=== PATIENT | male | born 1955 | race Caucasian/White ===

== ENCOUNTER 2020-04-06 08:28 | Inpatient (IN) | payer MEDICARE, OTHER, SELFPAY ==
[2020-04-06] VITALS (7 sets, daily range): BP systolic 125–176; BP diastolic 66–92; PULSE 78–102; RESP 16–22; TEMP 36.4–37.1; O2SAT 96–99; BMI 19.7
--- NOTE | ~2020-04-06 | CT_ITS ---
EXAMINATION: CTA chest PE protocol DATE: 04/06/2020 09:38 INDICATION: Shortness of breath for 4 days TECHNIQUE: Computed tomography angiography (CTA) of the chest was performed with 100 mL Omnipaque-350 intravenous contrast timed to evaluate the pulmonary arteries. Coronal maximum intensity projection 3D-reconstructions were created by the technologist. Automated exposure control and iterative reconst ruction technique were employed. Exam dose: 182.94 mGy-cm total exam DLP. COMPARISON: 04/06/2020 2 view chest. FINDINGS: There is suboptimal contrast enhancement of the pulmonary arteries due to the late imaging after the bolus injection. No obvious central pulmonary embolism is identified. Repeat imaging with a nother bolus of contrast material is recommended. IMPRESSION: Limited examination due to suboptimal contrast enhancement pulmonary; rescanning is anahi mmended. Reviewed, dictated and finalized at [facility]. Reviewed, dictated and finalized at [facility]. IMPRESSION: Limited examination due to suboptimal contrast enhancement pulmona ry; rescanning is recommended.
--- NOTE | ~2020-04-06 | CT_ITS ---
EXAMINATION: CTA chest PE protocol DATE: 04/06/2020 10:34 INDICATION: Shortness of breath TECHNIQUE: Computed tomography angiography (CTA) of the chest was performed with repeat 100 mL Omnipa que-350 intravenous contrast timed to evaluate the pulmonary arteries. Coronal maximum intensity proj ection 3D-reconstructions were created by the technologist. Automated exposure control and iterative reconstruction technique were employed. Exam dose: 194.19 mGy-cm total exam DLP. COMPARISON: 04/06/2020 PA and lateral chest FINDINGS: There is suboptimal contrast enhancement of the pulmonary arteries. No central pulmonary em bolism is identified. No thoracic aortic aneurysm or dissection. Normal heart size. Coronary artery calcification. No pericardial or pleural effusion. No hilar or mediastinal mass lesion or lymphadenopathy. Bilateral apical scarring. There are prominent emphysematous changes of the lungs. There are calcified pulmonary granulomas. No pulmonary infiltrate or consolidation or pulmonary mass lesion is evident. No suspicious osteolytic or osteoblastic lesions are noted. 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 Reviewed, dictated and finalized at [facility]. IMPRESSION: Suboptimal contrast enhancement of the pulmonary; no central pulmo nary embolism is evident Emphysema Old pulmonary granulomatous disease
--- NOTE | ~2020-04-06 | XR_ITS ---
XR chest 2V DATE: 04/06/2020 09:39 INDICATION: Shortness of breath TECHNIQUE: AP and lateral views COMPARISON: 06/06/2019 PA and lateral chest FINDINGS: There is severe bilateral hyperinflation consistent with COPD. No pulmonary infiltrate or c onsolidation, pleural effusion or pulmonary vascular congestion or pneumothorax is detected. Normal heart size. No hilar or mediastinal enlargement. IMPRESSION: Severe COPD Reviewed, dictated and finalized at [facility]. IMPRESSION: Severe COPD
--- NOTE | 2020-04-06 08:29 | ECG_ITS ---
Measurements Intervals [place] Rate: 89 P: 81 [place]: 151 QRS: 65 QRSD: 90 T: 65 QT: 352 QTc: 429 Interpretive Statements SINUS RHYTHM POSSIBLE RIGHT ATRIAL ENLARGEMENT POSSIBLE LEFT ATRIAL ENLARGEMENT POSSIBLE LEFT VENTRICULAR HYPERTROPHY BORDERLINE ST ABNORMALITY- INFERIOR LEADS BASELINE ARTIFACT- I, II, III, AVR, AVL, AVF, V1-V2 BORDERLINE ECG Electronically Signed On 04-06-2020 15:00:03 CDT by Brock Seymour D.O.
[2020-04-06] MEDS: methylPREDNISolone SOD SUCC 125 MG VIAL IV PUSH (08:38)
[2020-04-06] MEDS: ASPIRIN 81 MG CHEWABLE TABLET 324 MG PO (08:40)
[2020-04-06 08:49] LABS: Basophils Absolute Auto 0.08 K/mm3 (0.00-0.10); Basophils Percent Auto 0.8 % (0.0-1.0); Eosinophils Absolute Auto 0.67 K/mm3 (0.02-0.50); Eosinophils Percent Auto 6.3 % (1.0-6.0); Hematocrit 44.8 % (37.0-46.0); Immature Granulocyte Absolute 0.03 K/mm3 (0.00-0.00); Immature Granulocyte Percent A 0.3 % (0.0-0.0); Lymphocytes Absolute Auto 2.49 K/mm3 (1.10-4.50); Lymphocytes Percent Auto 23.6 % (18.0-42.0); Mean Corpuscular HGB Conc 33.5 g/dL (32.0-36.0); Mean Corpuscular Hemoglobin 30.5 pg (27.0-31.0); Mean Corpuscular Volume 91.2 fL (78.0-102.0); Mean Platelet Volume 9.1 fl (8.7-11.0); Monocytes Absolute Auto 0.63 K/mm3 (0.10-0.90); Neutrophils Absolute Auto 6.7 K/mm3 (1.7-7.2); Platelet Count Result 303 K/mm3 (150-420); Red Blood Count 4.91 M/mm3 (4.70-6.10); Red Cell Distribution Width 12.5 % (11.6-14.4); White Blood Count 10.6 K/mm3 (4.8-10.8)
[2020-04-06 09:04] LABS: Partial Thromboplastin Time 38.1 SEC (22.3-31.6); Prothrombin Time 10.7 Seconds (9.64-11.0)
[2020-04-06] MEDS: IPRATROPIUM 0.5 MG/ALBUTEROL SULFATE 2.5 MG AMPUL.NEB 3 ML INHALATION (09:04)
[2020-04-06 09:08] LABS: Alanine Aminotransferase 21 U/L (16-63); Albumin Level 4.1 g/dL (3.4-5.0); Alkaline Phosphatase 70 U/L (46-116); Anion Gap 11 mmol/L (8-16); Aspartate Amino Transferase 20 U/L (15-37); Bilirubin,Total 0.8 mg/dL (0.00-1.00); Blood Urea Nitrogen 11 mg/dL (7-18); Calcium 8.6 mg/dL (8.5-10.1); Carbon Dioxide 24 mmol/L (21-32); Chloride 101 mmol/L (98-108); Estimated CRCL calculation 45 ml/min; Estimated Glomerular Filt Rate 56; Glucose 109 mg/dL (70-99); Osmolality Calculated 282 mOsm/kg (285-295); Sodium 136 mmol/L (136-145)
[2020-04-06 09:11] LABS: BNP 50.6 pg/mL (0-100)
[2020-04-06 09:12] LABS: D Dimer 0.45 mg/L (0.19-0.50)
[2020-04-06 09:12] LABS: Influenza Control Valid (Valid)
--- NOTE | 2020-04-06 09:16 | PC.NURSE ---
pt to xray per wheelchair.
[2020-04-06 09:24] LABS: Troponin I < 0.02 ng/mL (0.00-0.056)
--- NOTE | 2020-04-06 09:50 | ED.SOB ---
HPI - SOB/Dyspnea General Chief Complaint: Shortness of Breath/Dyspnea Stated Complaint: 64YO male w/ known h.o copd, seasonal allergies currently on albuterol admits to feeling SOB over last 1 week. He has been using albuterol inh but ran out yesterday. Here for eval by EMS who arrived and found patient w/ O2 Sats at 94-95% on RA, better with O2 2L. Time Seen by Provider: 04/06/20 08:29 Related Data Home Medications Medication Instructions Recorded Confirmed albuterol sulfate 2 puff INHALATION Q4-6H PRN 06/06/19 04/06/20 ergocalciferol (vitamin D2) 50,000 unit PO WEEKLY 06/06/19 04/06/20 [Vitamin D2] folic acid 1 mg PO DAILY 06/06/19 04/06/20 loratadine 10 mg PO DAILY 06/06/19 04/06/20 Allergies Allergy/AdvReac Type Severity Reaction Status Date / Time No Known Allergies Allergy Verified 04/25/14 17:32 Review of Systems Review of Systems: All systems reviewed & are unremarkable except as noted in HPI and below Constitutional: Constitutional: Reports as per HPI, Reports no additional constitutional complaints, Denies chills and Denies fever(s) Eyes: Eyes: Reports as per HPI ENT: Reports system reviewed and no additional complaints, except as documented Cardiovascular: Cardiovascular: Reports as per HPI, Reports no additional cardiovascular complaints and Denies chest pain Respiratory: Respiratory: Reports as per HPI, Reports no additional respiratory complaints, Denies chest congestion, Reports cough, Reports dyspnea and Denies wheezing Gastrointestinal: Gastrointestinal: Reports as per HPI and Reports no additional gastrointestinal complaints Genitourinary: Genitourinary: Reports no additional male genitourinary complaints and Reports as per HPI Musculoskeletal: Musculoskeletal: Reports no additional musculoskeletal complaints Integumentary/Breasts: Skin/Breast: Reports system reviewed and no additional complaints, except as docu and Reports as per HPI Neurologic: Reports system reviewed and no additional complaints, except as documented and Reports as per HPI Psychiatric: Psychiatric: Reports no additional psychiatric complaints and Reports as per HPI Endocrine: Endocrine: Reports no additional endocrine complaints and Reports as per HPI Hematologic/Lymphatic: Hematologic/Lymphatic: Reports no additional hematologic/lymphatic complaints and Reports as per HPI Allergic/Immunologic: Allergic/Immunologic: Reports no additional allergic/immunologic complaints and Reports as per HPI [facility] Past Medical History Medical History COPD (chronic obstructive pulmonary disease) Depression HTN (hypertension) Light-headedness Vertigo Family History Family History Mother CAD (coronary artery disease) Father Blood clot in vein Social History Social History Smoking packs per day: 0.5 Smoking cigarettes per day: 10.0 Years smoked: 45 Smoking pack-years: 22.50 Smoking status: Current every day smoker Tobacco type: cigarettes Second hand tobacco smoke exposure: Yes Alcohol intake: former Substance use: never Gender identity (if verbalized by the patient): Male Spiritual care concerns: No Agree to blood products: Yes Exam Const: General: healthy appearing, no acute distress and alert Orientation/consciousness: patient oriented x3 HENMT: Head: normal to inspection Face and sinus: normal facial exam and sinuses nontender Eyes: Conjunctivae: conjunctivae normal Pupils: Equal, round and reactive pupils present Neck: Neck: normal visual inspection Chest: Chest palpation & inspection: normal inspection of the chest Resp: Effort & Inspection: normal respiratory effort and not labored Auscultation: clear to auscultation bilaterally Cardio: Rate: regular rate Rhythm: regular rhythm GI: Inspection: distended GI
--- NOTE | 2020-04-06 10:25 | PC.NURSE ---
1000 family member in with patient, N95 mask provided to family member as pt is PUI Covid. pt to go to floor for observation, does not feel safe going home at this time. Report to les rubio. xray staff bill states radiologist requested ct scan to be repeated. pt to xray per wheelchair.
--- NOTE | 2020-04-06 10:35 | PC.NURSE ---
REPORT TO TIFFANIE SANTIAGO
--- NOTE | 2020-04-06 11:49 | PM.IMHP ---
H&P: HPI History of Present Illness Date/Time: 04/06/20 11:49 Chief complaint: Ambulance Narrative: Karan Sexton is a 64 year old male with a chief complaint of SOB. Pt has had worsening breathing for about 1 week. He was using his MDI Albuterol but ran out yesterday. Pt is a smoker with a Hx of COPD. Pt denies CP at this time nor did he have this prior to arrival at the hospital. Since being in the ER Pt states that his breathing is better. He does not use home O2. Review of Systems Constitutional: Constitutional: Denies fatigue and Denies fever(s) Cardiovascular: Cardiovascular: Denies chest pain, Denies chest pain at rest and Denies chest pain with activity Respiratory: Respiratory: Reports dyspnea (but this has improved since being in the hospital ) Gastrointestinal: Gastrointestinal: Reports no additional gastrointestinal complaints Genitourinary: Genitourinary: Reports no additional male genitourinary complaints Musculoskeletal: Musculoskeletal: Reports no additional musculoskeletal complaints Neurologic: Denies dizziness and Denies loss of vision PMFSH Past Medical History Medical History COPD (chronic obstructive pulmonary disease) Depression HTN (hypertension) Light-headedness Vertigo Family History Family History Mother CAD (coronary artery disease) Father Blood clot in vein Social History Social History Smoking packs per day: 1 Smoking cigarettes per day: 20.0 Years smoked: 45 Smoking pack-years: 45.00 Smoking status: Former smoker Tobacco type: cigarettes Second hand tobacco smoke exposure: Yes Smoking end date: 03/30/20 Alcohol intake: former Drinks per week: 18 Substance use: never Substance use type: does not use Gender identity (if verbalized by the patient): Male Sexual Orientation (if Verbalized by the Patient): Straight or Heterosexual Spiritual care concerns: No Agree to blood products: Yes Meds Home Medications and Allergies Home Medications Medication Instructions Recorded Confirmed Type albuterol sulfate 2 puff INHALATION Q4-6H PRN 06/06/19 04/06/20 History ergocalciferol (vitamin D2) 50,000 unit PO WEEKLY 06/06/19 04/06/20 History [Vitamin D2] folic acid 1 mg PO DAILY 06/06/19 04/06/20 History loratadine 10 mg PO DAILY 06/06/19 04/06/20 History metoprolol succinate 12.5 mg PO DAILY 30 Days #15 tablet 06/07/19 04/06/20 Rx Allergies Allergy/AdvReac Type Severity Reaction Status Date / Time No Known Allergies Allergy Verified 04/25/14 17:32 Vital Signs Vital Signs - 24 hr 04/06/20 08:28 04/06/20 08:40 04/06/20 09:09 Temperature 98.2 F Pulse Rate 102 H 102 H 88 Respiratory Rate 22 H 22 H 20 Blood Pressure 176/92 H Pulse Oximetry 97 04/06/20 10:20 04/06/20 11:33 Temperature 98.7 F 98.4 F Pulse Rate 91 90 Respiratory Rate 20 16 Blood Pressure 143/77 H 159/76 H Pulse Oximetry 98 98 Exam Const: General: cooperative, healthy appearing, comfortable, no acute distress, alert and awake Nutritional Appearance: thin Orientation/consciousness: oriented to person, oriented to place and oriented to time (and events) HENMT: Head: normal to inspection Ears: hearing grossly normal bilaterally Face and sinus: normal facial exam Neck: Neck: normal visual inspection, full ROM and no JVD Carotids: no bruits Resp: Effort & Inspection: normal respiratory effort Auscultation: diminished lung sounds Cardio: Rate: regular rate Rhythm: regular rhythm Heart sounds: S1 normal heart sound present and S2 normal heart sound present GI: GI Palp: No abdominal tenderness and Yes Soft to palpation Auscultation: normal bowel sounds Neuro: General: oriented to person, oriented to place and oriented to time (and events) Cranial nerves: Yes CN's II-XII intact bilat
[2020-04-06] MEDS: ALBUTEROL SULFATE (*SP) INHALER 2 PUFF INHALATION ×2 (13:01→17:56)
[2020-04-06] MEDS: methylPREDNISolone SOD SUCC 125 MG VIAL 80 MG IV PUSH ×2 (13:02→21:37)
[2020-04-07] VITALS: BP 132/72; PULSE 87; RESP 18; TEMP 35.9; O2SAT 97
[2020-04-07] MEDS: ALBUTEROL SULFATE (*SP) INHALER 2 PUFF INHALATION ×4 (01:08→17:56)
[2020-04-07 04:00] VITALS: BP 146/78; PULSE 88; RESP 18; TEMP 36.6; O2SAT 95
[2020-04-07 05:41] LABS: Basophils Absolute Auto 0.01 K/mm3 (0.00-0.10); Basophils Percent Auto 0.1 % (0.0-1.0); Hemoglobin 13.3 g/dL (12.4-15.3); Immature Granulocyte Percent A 0.7 % (0.0-0.0); Lymphocytes Absolute Auto 1.18 K/mm3 (1.10-4.50); Lymphocytes Percent Auto 8.3 % (18.0-42.0); Mean Corpuscular HGB Conc 33.3 g/dL (32.0-36.0); Mean Corpuscular Hemoglobin 30.4 pg (27.0-31.0); Mean Corpuscular Volume 91.3 fL (78.0-102.0); Mean Platelet Volume 8.9 fl (8.7-11.0); Monocytes Absolute Auto 0.27 K/mm3 (0.10-0.90); Monocytes Percent Auto 1.9 % (2.0-11.0); Neutrophils Absolute Auto 12.7 K/mm3 (1.7-7.2); Platelet Count Result 261 K/mm3 (150-420); Red Blood Count 4.38 M/mm3 (4.70-6.10); Red Cell Distribution Width 12.7 % (11.6-14.4); White Blood Count 14.2 K/mm3 (4.8-10.8)
[2020-04-07] MEDS: methylPREDNISolone SOD SUCC 125 MG VIAL 80 MG IV PUSH ×3 (05:43→21:32)
[2020-04-07 06:01] LABS: Alanine Aminotransferase 24 U/L (16-63); Albumin Level 3.4 g/dL (3.4-5.0); Alkaline Phosphatase 57 U/L (46-116); Anion Gap 12 mmol/L (8-16); Aspartate Amino Transferase 14 U/L (15-37); Bilirubin,Total 0.3 mg/dL (0.00-1.00); Blood Urea Nitrogen 22 mg/dL (7-18); Calcium 8.3 mg/dL (8.5-10.1); Carbon Dioxide 23 mmol/L (21-32); Chloride 105 mmol/L (98-108); Estimated CRCL calculation 44 ml/min; Estimated Glomerular Filt Rate 55; Glucose 146 mg/dL (70-99); Osmolality Calculated 296 mOsm/kg (285-295); Potassium 4.6 mmol/L (3.5-5.1); Sodium 140 mmol/L (136-145); Total Protein 6.7 g/dL (6.4-8.2)
--- NOTE | 2020-04-07 07:35 | PC.NURSE ---
Patient resting in bed on left side. Patient reports no needs at this time. Call light and belongings at side.
[2020-04-07] MEDS: NICOTINE (*PBKC) 21 MG PATCH 1 PATCH TRANSDERM (08:19)
[2020-04-07] MEDS: ENOXAPARIN 40 MG/0.4 ML SYRINGE SUB-Q (08:19)
[2020-04-07] MEDS: PANTOPRAZOLE SODIUM IV 40 MG VIAL IV PUSH (08:19)
[2020-04-07 08:30] VITALS: BP 137/66; PULSE 90; RESP 20; TEMP 36.9; O2SAT 94
--- NOTE | 2020-04-07 10:15 | PC.NURSE ---
Patient sitting up in bed resting, speaking on phone. No needs voiced.
[2020-04-07 11:50] LABS: SARS-CoV-2 RNA PCR Negative
[2020-04-07] MEDS: AZITHROMYCIN 250 MG TABLET 500 MG PO (12:07)
[2020-04-07] MEDS: BUDESONIDE/FORMOTEROL (*SP) 160-4.5 MCG 6 GM INH 2 PUFF INHALATION (12:10)
[2020-04-07 12:30] VITALS: BP 121/74; PULSE 92; RESP 20; TEMP 36.7; O2SAT 94
--- NOTE | 2020-04-07 12:48 | WPDPN ---
Progress Note: A&P Assessment and Plan (1) Person under investigation for COVID-19: Code(s): Z20.828 - Contact with and (suspected) exposure to other viral communicable diseases Status: Acute Assessment and Plan: Cultures negative (2) Acute exacerbation of chronic obstructive airways disease: Code(s): J44.1 - Chronic obstructive pulmonary disease with (acute) exacerbation Status: Acute Assessment and Plan: ? Continue to monitor pulse oximetry, patient currently on room air sat's iin the upper 90s ? CXR indicate Bilateral apical scarring. There are prominent emphysematous changes of the lungs. ? Continue inhaler/ nebs albuterol 2 puffs every 6 hours and emphysema daily ? Continue steroids, patient currently on 80 mg every 8 hours Solu-Medrol ? Started ABX azithromycin ? (3) Hyponatremia: Code(s): E87.1 - Hypo-osmolality and hyponatremia Status: Acute Assessment and Plan: Resolved Sodium 131 on admission currently 140 (4) DVT prophylaxis: Code(s): Z29.9 - Encounter for prophylactic measures, unspecified Status: Acute Assessment and Plan: Continue Lovenox (5) Elevated WBCs: Code(s): D72.829 - Elevated white blood cell count, unspecified Status: Acute Assessment and Plan: Possibly secondary to steroid use Chest x-ray does not indicate pneumonia Review of Systems Review of Systems: All systems reviewed & are unremarkable except as noted in HPI and below (10 point system review) Exam Narrative: Exam Narrative: GENERAL: This is a well-nourished, well-developed patient, in no apparent distress. HEAD: normocephalic, atraumatic. EYES: PERRL. Sclera clear/white. Vision is grossly intact. EARS: External ears normal, auditory canals clear and without drainage, TMs normal without perforation. Hearing grossly intact. NOSE: External nose normal with no obvious nasal discharge, nares without redness, no rhinorrhea. THROAT: Mucous membranes moist, posterior pharynx clear. NECK: Neck supple, non-tender without lymphadenopathy, masses or thyromegaly. CARDIOVASCULAR: Regular rate and rhythm without murmurs, gallops, or rubs. RESPIRATORY: Breath sounds bilateral with slight wheezing, GASTROINTESTINAL: Abdomen soft, non-tender, nondistended. Bowel sounds are active. No hepato-splenomegaly, or palpable masses. No guarding. SKIN: warm, intact with no suspicious lesions or rash, good texture and turgor. NEURO: awake, alert, and oriented to person, place and time. There were no obvious focal neurologic abnormalities. Steady gait EXTREMITIES: Normal range of motion. No edema. No calf tenderness. Negative Homans sign bilaterally. BACK: Nontender without deformity or crepitance. No flank tenderness. Objective Data Vital Signs Vital Signs: Vital Signs - 24 hr 04/06/20 16:00 04/06/20 20:00 04/07/20 00:00 Temperature 98.2 F 97.6 F 96.7 F L Pulse Rate 88 78 87 Respiratory Rate 20 18 18 Blood Pressure 125/72 140/66 132/72 Pulse Oximetry 99 96 97 04/07/20 04:00 04/07/20 08:30 Temperature 97.8 F 98.5 F Pulse Rate 88 90 Respiratory Rate 18 20 Blood Pressure 146/78 H 137/66 Pulse Oximetry 95 94 Intake/Output Intake/Output: Intake & Output 04/04/20 04/05/20 04/06/20 04/07/20 23:59 23:59 23:59 23:59 Intake Total 500 360 Balance 500 360 Meds/Results Medications: Active Medications Generic Name Dose Route Start Last Admin Trade Name Freq PRN Reason Stop Dose Admin Acetaminophen 650 mg 04/06/20 11:01 Tylenol Tablet PO Q4H PRN Mild Pain (1-3) or Fever Albuterol 2 puff 04/06/20 12:20 04/07/20 05:43 Proventil Hfa INHALATION 2 puff Q6H SANTANA Administration Azithromycin 500 mg 04/07/20 09:00 04/07/20 12:07 Zithromax Tablet PO 500 mg DAILY SANTANA Administration Enoxaparin Sodium 40 mg 04/07/20 09:00 04/07/20 08:19 Lovenox SUB-Q 40 mg DAILY SANTANA Administration Guaifenesin/Dextrom
[2020-04-07 16:50] VITALS: BP 151/71; PULSE 85; RESP 18; TEMP 36.9; O2SAT 96
--- NOTE | 2020-04-07 18:27 | PC.NURSE ---
Patient sitting up in bed resting watching tv. Provided with fresh ice water. Denies any further needs. States he is feeling much better this afternoon.
[2020-04-07 19:42] VITALS: BP 139/71; PULSE 82; RESP 14; TEMP 36.4; O2SAT 97
[2020-04-08] VITALS: BP 141/72; PULSE 80; RESP 14; TEMP 36.4; O2SAT 97
[2020-04-08] MEDS: ALBUTEROL SULFATE (*SP) INHALER 2 PUFF INHALATION ×2 (00:12→05:31)
[2020-04-08 04:00] VITALS: BP 131/69; PULSE 80; RESP 14; TEMP 36.6; O2SAT 97
[2020-04-08] MEDS: methylPREDNISolone SOD SUCC 125 MG VIAL 80 MG IV PUSH (05:30)
[2020-04-08 07:15] VITALS: BP 147/71; PULSE 86; RESP 18; TEMP 37.1; O2SAT 96
--- NOTE | 2020-04-08 08:43 | PM.DS ---
DS: Admitting Diagnosis Admitting Diagnosis Admitting Diagnosis: copd <Jeanmarieravindra JagdeepJENNIFER Willett - Last Filed: 04/08/20 11:16> DS: Discharge Diagnosis Discharge Diagnosis (1) Person under investigation for COVID-19: Code(s): Z20.828 - Contact with and (suspected) exposure to other viral communicable diseases <Conrado JagdeepJENNIFER Willett - Last Filed: 04/08/20 11:16> Status: Acute <Conrado GannonJENNIFER Willett - Last Filed: 04/08/20 11:16> Assessment and Plan: Cultures negative <Jeanmarieravindra JagdeepJENNIFER Willett - Last Filed: 04/08/20 11:16> (2) Acute exacerbation of chronic obstructive airways disease: Code(s): J44.1 - Chronic obstructive pulmonary disease with (acute) exacerbation <Jeanmarieravindra JagdeepJENNIFER Willett - Last Filed: 04/08/20 11:16> Status: Acute <Jeanmarieravindra JagdeepJENNIFER Willett - Last Filed: 04/08/20 11:16> Assessment and Plan: ? Continue to monitor pulse oximetry, patient currently on room air sat's iin the upper 90s ? CXR indicate Bilateral apical scarring. There are prominent emphysematous changes of the lungs. ? Continue inhaler/ nebs albuterol 2 puffs every 6 hours and Spiriva ? Continue steroids, patient currently on Solu-Medrol 60 mg daily to titrate ? Continue ABX azithromycin for 7 days ? <JENNIFER Palacios - Last Filed: 04/08/20 11:16> (3) Hyponatremia: Code(s): E87.1 - Hypo-osmolality and hyponatremia <Conrado JagdeepJENNIFER Willett - Last Filed: 04/08/20 11:16> Status: Acute <JENNIFER Palacios - Last Filed: 04/08/20 11:16> Assessment and Plan: Resolved Sodium 131 on admission currently wnl <JENNIFER Palacios - Last Filed: 04/08/20 11:16> (4) DVT prophylaxis: Code(s): Z29.9 - Encounter for prophylactic measures, unspecified <JENNIFER Palacios - Last Filed: 04/08/20 11:16> Status: Acute <JENNIFER Palacios Last Filed: 04/08/20 11:16> Assessment and Plan: Patient discharged with DC Lovenox <JENNIFER Palacios - Last Filed: 04/08/20 11:16> (5) Elevated WBCs: Code(s): D72.829 - Elevated white blood cell count, unspecified <JENNIFER Palacios Last Filed: 04/08/20 11:16> Status: Acute <JENNIFER Palacios Last Filed: 04/08/20 11:16> Assessment and Plan: secondary to steroid use Chest x-ray does not indicate pneumonia <JENNIFER Palacios Last Filed: 04/08/20 11:16> DS: Summary Time Spent with Patient Time attestation: Total time spent providing and/or coordinating discharge services:60 <JENNIFER Palacios Last Filed: 04/08/20 11:16> Exam Narrative: Exam Narrative: General: A well-developed, well-nourished male sitting up in bed no acute distress. HEENT: Normocephalic, atraumatic. PERRL, EOMI. Sclerae anicteric. Oral mucosa moist. Oropharynx clear. Neck: Supple. Respiratory: Lungs are clear to auscultation bilaterally. Cardiovascular: Regular rate and rhythm with S1-S2. Gastrointestinal: Abdomen is soft, nontender, and nondistended with positive bowel sounds. No organomegaly. Skin: Warm, dry, and slightly pale.. No rash or lesions on limited exam. Extremities: No cyanosis, clubbing, or edema. Radial and pedal pulses intact. Neurological: Alert. Cranial nerves 2-12 are grossly intact. No gross focal deficits to casual conversation. Psychiatric: Pleasant and cooperative with normal mood and affect. CONSTITUTIONAL: Denies fever, chills, sweats. EYES: Denies visual changes, redness, discharge. ENT: Denies rhinorrhea, congestion, sore throat, otalgia. CARDIOVASCULAR: Denies chest pain, palpitations, edema. RESPIRATORY: Denies dyspnea, wheezing, cough GASTROINTESTINAL: Denies abdominal pain, nausea, vomiting, diarrhea. GENITOURINARY: Denies dysuria, hematuria, abnormal discharge SKIN: Denies rash or itching. MUSCULOSKELETAL: Denies acute back pain, joint pain, or myalgia
[2020-04-08 09:17] LABS: Hematocrit 38.9 % (37.0-46.0); Mean Corpuscular HGB Conc 33.4 g/dL (32.0-36.0); Mean Corpuscular Hemoglobin 30.7 pg (27.0-31.0); Mean Platelet Volume 9.4 fl (8.7-11.0); Platelet Count Result 269 K/mm3 (150-420); Red Blood Count 4.23 M/mm3 (4.70-6.10); White Blood Count 17.7 K/mm3 (4.8-10.8)
[2020-04-08 09:26] LABS: Anion Gap 11 mmol/L (8-16); Blood Urea Nitrogen 21 mg/dL (7-18); Calcium 8.2 mg/dL (8.5-10.1); Carbon Dioxide 23 mmol/L (21-32); Chloride 104 mmol/L (98-108); Estimated CRCL calculation 43 ml/min; Estimated Glomerular Filt Rate 54; Glucose 235 mg/dL (70-99); Osmolality Calculated 297 mOsm/kg (285-295); Potassium 4.1 mmol/L (3.5-5.1); Sodium 138 mmol/L (136-145)
[2020-04-08 09:31] VITALS: PULSE 86
[2020-04-08] MEDS: METOPROLOL SUCCINATE EXT REL 25 MG TABCR 12.5 MG PO (09:31)
[2020-04-08] MEDS: FOLIC ACID 1 MG TABLET PO (09:32)
[2020-04-08] MEDS: methylPREDNISolone SOD SUCC 125 MG VIAL 60 MG IV PUSH (09:32)
[2020-04-08] MEDS: LORATADINE 10 MG TABLET PO (09:32)
[2020-04-08] MEDS: AZITHROMYCIN 250 MG TABLET 500 MG PO (09:33)
[2020-04-08] MEDS: PANTOPRAZOLE SODIUM IV 40 MG VIAL IV PUSH (09:33)
[2020-04-08] MEDS: NICOTINE (*PBKC) 21 MG PATCH 1 PATCH TRANSDERM (09:33)
[2020-04-08] MEDS: ERGOCALCIFEROL 50,000 UNIT CAPSULE 50000 UNITS PO (09:37)
[2020-04-08] MEDS: guaiFENesin/DEXTROMETHORPHAN 5 ML UDC 10 ML PO (10:27)
--- NOTE | 2020-04-08 10:30 | PC.NURSE ---
All discharge instructions and education reviewed with patient. All questions answered by nurse. All belongings gathered together to be sent home with patient. IV site remove, tip intact. Dressing applied to site, pt tolerated well. Patient denies any further questions. Waiting for sister to come pick him up. Sitting at side of bed.
== END 2020-04-08 11:00 | disposition home or self-care (01) | DRG 192 ==
LOC: CHSED 10:17 → CHS2ND 10:42
PROVIDERS: Nurse Practitioner; Admitting Provider Family Medicine; Emergency Provider Family Medicine; PCP Family Medicine; Visit Provider Family Medicine
DX: J44.1 Chronic obstructive pulmonary disease with (acute) exacerbation (principal); I10 Essential (primary) hypertension; F17.210 Nicotine dependence, cigarettes, uncomplicated; F32.9 Major depressive disorder, single episode, unspecified; Z20.828 Contact with and (suspected) exposure to other viral communicable diseases
CPT/HCPCS: 36415; 71046; 71275; 80048; 80053; 83880; 84484; 85025; 85027; 85380; 85610; 85730; 87081; 87635; 87804; 87880; 93005; 94640; 96372; 96374; 96375; 96376; 99283; 99285; A9270; C9113; C9803; G0378; J1650; J2930; Q9965; U0003

== ENCOUNTER 2020-05-26 09:15 | Emergency (ER) | payer MEDICARE, OTHER, SELFPAY ==
[2020-05-26] VITALS (7 sets, daily range): BP systolic 145–147; BP diastolic 82–87; PULSE 84–104; RESP 16–26; TEMP 36.4–36.6; O2SAT 96–100
--- NOTE | ~2020-05-26 | XR_ITS ---
EXAMINATION: XR chest 1V portable DATE: 05/26/2020 09:50 INDICATION: COPD presenting with dyspnea TECHNIQUE: frontal view of the chest was obtained. COMPARISON: Chest radiograph and CT dated 04/06/2020 FINDINGS: Hyperexpansion of lungs consistent with known emphysema. Biapical pleural-parenchymal scarring. There are few scattered bilateral calcified pulmonary nodules along with calcified bilateral hilar and med iastinal lymph nodes consistent with old granulomatous disease. No other airspace opacities, pulmonar y edema, pleural effusion or pneumothorax. The cardiomediastinal silhouette is normal. Mild thoracic levocurvature. IMPRESSION: 1. Emphysema with biapical pleural-parenchymal scarring. Reviewed, dictated and finalized at location A. ITIES AND MAINTENANCE SUPERVISOR
--- NOTE | 2020-05-26 09:31 | ED.SOB ---
HPI - SOB/Dyspnea General Chief Complaint: Shortness of Breath/Dyspnea Stated Complaint: ambulance Source: patient and EMS Mode of arrival: EMS Limitations: no limitations History of Present Illness MD elicited complaint: shortness of breath and cough Pertinent past history: COPD Onset (ago): week(s) (1) Timing: intermittent Severity: moderate Exacerbating factors: coughing Relieving factors: oxygen ( administered by EMS) Known history of: COPD Associated symptoms: cough Treatment prior to arrival: none Related Data Home oxygen amount: none Home Medications Medication Instructions Recorded Confirmed folic acid 1 mg PO DAILY 06/06/19 05/26/20 loratadine 10 mg PO DAILY 06/06/19 05/26/20 citalopram 10 mg PO DAILY 05/26/20 05/26/20 Allergies Allergy/AdvReac Type Severity Reaction Status Date / Time No Known Allergies Allergy Verified 04/25/14 17:32 Review of Systems Constitutional: Constitutional: Denies body ache(s), Denies chills and Denies fever(s) ENT: Reports system reviewed and no additional complaints, except as documented Cardiovascular: Cardiovascular: Reports no additional cardiovascular complaints and Denies chest pain Respiratory: Respiratory: Reports as per HPI Gastrointestinal: Gastrointestinal: Reports no additional gastrointestinal complaints, Denies nausea and Denies vomiting Genitourinary: Genitourinary: Reports no additional male genitourinary complaints Musculoskeletal: Musculoskeletal: Reports no additional musculoskeletal complaints Integumentary/Breasts: Skin/Breast: Reports system reviewed and no additional complaints, except as docu Neurologic: Reports system reviewed and no additional complaints, except as documented Psychiatric: Psychiatric: Reports no additional psychiatric complaints [facility] Past Medical History Medical History (Updated 05/26/20 @ 10:56 by Bj Brush MD) COPD (chronic obstructive pulmonary disease) Depression HTN (hypertension) Light-headedness Vertigo Family History Family History Mother CAD (coronary artery disease) Father Blood clot in vein Social History Social History Smoking packs per day: 1 Smoking cigarettes per day: 20.0 Years smoked: 45 Smoking pack-years: 45.00 Smoking status: Former smoker Tobacco type: cigarettes Second hand tobacco smoke exposure: Yes Smoking end date: 03/30/20 Alcohol intake: former Drinks per week: 18 Substance use: never Substance use type: does not use Gender identity (if verbalized by the patient): Male Spiritual care concerns: No Agree to blood products: Yes Exam Const: General: cooperative, healthy appearing, no acute distress, alert and awake Nutritional Appearance: average body habitus and well nourished Orientation/consciousness: patient oriented x3 Limitations: no limitations Other: Patient seen and examined in negative pressure isolation room in full PPE HENMT: Head: normal to inspection Ears: hearing grossly normal bilaterally General nose exam: Normal external nose present and Normal nares present Face and sinus: normal facial exam Eyes: General: appearance normal, both eyes and all related structures EOM: EOMs intact bilaterally Neck: Neck: normal visual inspection, full ROM and trachea midline Chest: Chest palpation & inspection: normal inspection of the chest Resp: Effort & Inspection: normal respiratory effort Auscultation: wheezes expiratory wheezes and posterior (bases) Cardio: Rate: regular rate Rhythm: regular rhythm GI: Inspection: normal to inspection Auscultation: normal bowel sounds Back/Spine/Pelvis: Cervical Spine: cervical ROM normal Thoracic/Lumbar Spine: thoraco-lumbar ROM normal Skin: General skin exam: normal color and no rashes or lesions noted Neuro: General: patient oriented x3, moves all extremities and no focal
[2020-05-26] MEDS: IPRATROPIUM 0.5 MG/ALBUTEROL SULFATE 2.5 MG AMPUL.NEB 3 ML INHALATION (10:09)
[2020-05-26 10:10] LABS: Hematocrit 43.9 % (37.0-46.0); Hemoglobin 14.6 g/dL (12.4-15.3); Mean Corpuscular HGB Conc 33.3 g/dL (32.0-36.0); Mean Corpuscular Hemoglobin 30.3 pg (27.0-31.0); Mean Corpuscular Volume 91.1 fL (78.0-102.0); Mean Platelet Volume 9.6 fl (8.7-11.0); Platelet Count Result 252 K/mm3 (150-420); Red Blood Count 4.82 M/mm3 (4.70-6.10); Red Cell Distribution Width 13.1 % (11.6-14.4); White Blood Count 10.5 K/mm3 (4.8-10.8)
[2020-05-26 10:24] LABS: Alanine Aminotransferase 20 U/L (16-63); Albumin Level 3.8 g/dL (3.4-5.0); Alkaline Phosphatase 72 U/L (46-116); Anion Gap 12 mmol/L (8-16); Aspartate Amino Transferase 15 U/L (15-37); Bilirubin,Total 0.6 mg/dL (0.00-1.00); Blood Urea Nitrogen 8 mg/dL (7-18); Calcium 9.1 mg/dL (8.5-10.1); Carbon Dioxide 25 mmol/L (21-32); Chloride 102 mmol/L (98-108); Estimated CRCL calculation 50 ml/min; Estimated Glomerular Filt Rate > 60; Glucose 106 mg/dL (70-99); Osmolality Calculated 286 mOsm/kg (285-295); Potassium 4.3 mmol/L (3.5-5.1); Sodium 139 mmol/L (136-145); Total Protein 7.4 g/dL (6.4-8.2)
[2020-05-26 10:27] LABS: CRP 0.5 mg/dL (0.0-0.9); Influenza Control Valid (Valid)
[2020-05-26 10:29] LABS: Lactic Acid Reflex 1.1 mmol/L (0.4-2.0)
[2020-05-26 10:37] LABS: Band Neutrophils Percent 0 % (0-6); Basophils Percent Manual 0 % (0-1); Eosinophils Absolute Manual 1.57 K/mm3 (0.02-0.5); Eosinophils Percent Manual 15 % (1-6); Lymphocytes Absolute Manual 2.62 K/mm3 (1.1-4.5); Lymphocytes Percent Manual 25 % (18-44); Monocytes Absolute Manual 0.52 K/mm3 (0.1-0.90); Monocytes Percent Manual 5 % (3-9); Neutrophils Absolute Manual 5.77 K/mm3 (1.3-6.7); Neutrophils Percent Manual 55 % (46-73); Platelet Estimate Adequate (Adequate); Total Cells Counted 100
[2020-05-26] MEDS: methylPREDNISolone SOD SUCC 125 MG VIAL IV PUSH (10:48)
[2020-05-27 14:53] LABS: SARS-CoV-2 RNA PCR Negative
== END 2020-05-26 11:06 | disposition home or self-care (01) ==
PROVIDERS: Emergency Provider Emergency Medicine; PCP Family Medicine
DX: J43.9 Emphysema, unspecified (principal); Z20.828 Contact with and (suspected) exposure to other viral communicable diseases; I10 Essential (primary) hypertension; Z87.891 Personal history of nicotine dependence
CPT/HCPCS: 36415; 71045; 80053; 83605; 83735; 85025; 86140; 87040; 87635; 87804; 94640; 96374; 99283; 99284; C9803; J2930; U0003

== ENCOUNTER 2020-06-28 05:40 | Emergency (ER) | payer MEDICARE, OTHER, SELFPAY ==
--- NOTE | ~2020-06-28 | XR_ITS ---
EXAMINATION: XR chest 1V portable DATE: 06/28/2020 06:54 INDICATION: COVID, dyspnea TECHNIQUE: frontal view of the chest was obtained. COMPARISON: Chest radiograph dated 05/26/[address] dated 04/06/2020 FINDINGS: Hyperexpansion of lungs consistent with emphysema. Biapical pleural-parenchymal scarring. There are b ilateral scattered calcified pulmonary nodules with calcified bilateral hilar and mediastinal lymph n odes consistent with old granulomatous disease. No other airspace opacities, pulmonary edema, pleural effusion or pneumothorax. The cardiomediastinal silhouette is normal. IMPRESSION: 1. Emphysema with biapical pleural-parenchymal scarring. No other acute cardiopulmonary disease. Reviewed, dictated and finalized at location A. ATE INQUIRY AGENT IMPRESSION: 1. Emphysema with biapical pleural-parenchymal scarring. No other acute cardiop ulmonary disease.
[2020-06-28 05:57] VITALS: BP 159/84; PULSE 81; RESP 20; TEMP 36.7; O2SAT 97; O2SAT 98
--- NOTE | 2020-06-28 05:57 | ED.SOB ---
HPI - SOB/Dyspnea General Chief Complaint: Shortness of Breath/Dyspnea Stated Complaint: Shortness of Breath Time Seen by Provider: 06/28/20 05:57 Source: patient Mode of arrival: EMS History of Present Illness HPI Narrative: 64-year-old man with a history of hypertension and COPD brought to the emergency department by EMS for increasing shortness breath over the last week. Patient states that he has had some cough but it is not productive, and denies fever, sick contacts, chest pain, leg swelling, body aches, headache, and cold symptoms. He lives by himself. He states he has been admitted to the hospital before for COPD exacerbations but denies past intubations. he uses albuterol inhaler fiber 6 times last night and did 2 nebulizer treatments with little effect. MD elicited complaint: shortness of breath and cough Pertinent past history: COPD Onset (ago): week(s) (1) Timing: constant and progressively worsening Severity: moderate Exacerbating factors: exertion Relieving factors: rest Known history of: COPD Associated symptoms: cough and wheezing Treatment prior to arrival: oxygen Related Data Home oxygen amount: none Home Medications Medication Instructions Recorded Confirmed folic acid 1 mg PO DAILY 06/06/19 06/28/20 loratadine 10 mg PO DAILY 06/06/19 06/28/20 citalopram 10 mg PO DAILY 05/26/20 06/28/20 albuterol sulfate 2.5 mg CONTINUOUS NEBULIZATION PRN 06/28/20 06/28/20 PRN Allergies Allergy/AdvReac Type Severity Reaction Status Date / Time No Known Allergies Allergy Verified 04/25/14 17:32 Review of Systems Constitutional: Constitutional: Denies chills, Denies fever(s) and Denies weakness ENT: Denies dysphagia, Denies nasal congestion and Denies sore throat Cardiovascular: Cardiovascular: Denies chest pain and Denies radiating jaw, neck or arm pain Respiratory: Respiratory: Reports as per HPI, Reports cough, Reports dyspnea and Reports wheezing Gastrointestinal: Gastrointestinal: Denies abdominal pain, Denies diarrhea, Denies nausea and Denies vomiting Musculoskeletal: Musculoskeletal: Denies myalgias, Denies arthralgias and Denies joint swelling Integumentary/Breasts: Skin/Breast: Denies pruritus, Denies erythema and Denies rash Neurologic: Denies vertigo, Denies dizziness and Denies syncope Hematologic/Lymphatic: Hematologic/Lymphatic: Denies easy bleeding and Denies easy bruising Allergic/Immunologic: Allergic/Immunologic: Denies lip swelling and Denies tongue swelling [facility] Past Medical History Medical History (Updated 06/28/20 @ 06:22 by Davidson Stoner MD) COPD (chronic obstructive pulmonary disease) Depression HTN (hypertension) Light-headedness Vertigo Family History Family History Mother CAD (coronary artery disease) Father Blood clot in vein Social History Social History Smoking packs per day: 1 Smoking cigarettes per day: 20.0 Years smoked: 45 Smoking pack-years: 45.00 Smoking status: Former smoker Tobacco type: cigarettes Second hand tobacco smoke exposure: Yes Smoking end date: 03/30/20 Alcohol intake: former Drinks per week: 18 Substance use: never Substance use type: does not use Gender identity (if verbalized by the patient): Male Spiritual care concerns: No Agree to blood products: Yes Exam Const: General: alert Nutritional Appearance: thin Orientation/consciousness: patient oriented x3 Limitations: no limitations Other: [id number] acute distres HENMT: Head: normal to inspection Ears: external ears normal, TM's normal bilaterally and EAC's normal General nose exam: Normal nares present Face and sinus: normal facial exam Mouth: Yes moist mucous membranes Throat: posterior oropharynx normal Eyes: Conjunctivae: conjunctivae normal EOM: EOMs intact bilaterally Other: Irregular pupil on right Neck: Ne
--- NOTE | 2020-06-28 06:02 | ECG_ITS ---
Measurements Intervals [place] Rate: 83 P: 86 GA: 167 QRS: 81 QRSD: 90 T: 81 QT: 372 QTc: 439 Interpretive Statements SINUS RHYTHM POSSIBLE RIGHT ATRIAL ENLARGEMENT BORDERLINE ST-T WAVE ABNORMALITY- INF/HIGH LAT LEADS BASELINE ARTIFACT- I, AVL, V2-V3 BORDERLINE ECG Electronically Signed On 06-29-2020 13:41:43 BUSINESS APPLICATIONS ANALYST by Brock Seymour D.O.
[2020-06-28] MEDS: ALBUTEROL SULFATE (*SP) INHALER 4 PUFF INHALATION (06:15)
[2020-06-28 06:18] VITALS: PULSE 81
[2020-06-28 06:33] LABS: Base Excess ABG -1.9 mmol/L (0-2); HCO3 ABG 22.2 mmol/L (23-29); Oxygen Content ABG 19.1 %vol (16.0-22.0); Oxyhemoglobin 91.9 % (94-100); PCO2 ABG 36.1 mmHg (35-45); PO2 ABG 64.2 mmHg (75-85); Total Hemoglobin 14.8 g/dL; pH ABG 7.41 (7.35-7.45)
[2020-06-28 06:34] LABS: Hematocrit 42.8 % (37.0-46.0); Mean Corpuscular HGB Conc 32.7 g/dL (32.0-36.0); Mean Corpuscular Hemoglobin 30.5 pg (27.0-31.0); Mean Corpuscular Volume 93.2 fL (78.0-102.0); Platelet Count Result 309 K/mm3 (150-420); Red Blood Count 4.59 M/mm3 (4.70-6.10); Red Cell Distribution Width 13.3 % (11.6-14.4); White Blood Count 7.6 K/mm3 (4.8-10.8)
[2020-06-28 06:37] LABS: Device ROOM AIR; Modified Allen's Test Pass; Site Drawn RIGHT RADIAL
[2020-06-28 06:47] LABS: D Dimer 0.27 mg/L (0.19-0.50)
[2020-06-28 06:53] LABS: Influenza Control Valid (Valid); SARS-CoV-2 Ag Negative (Negative)
[2020-06-28 06:55] LABS: Alanine Aminotransferase 17 U/L (16-63); Albumin Level 3.9 g/dL (3.4-5.0); Alkaline Phosphatase 73 U/L (46-116); Anion Gap 8 mmol/L (8-16); Aspartate Amino Transferase 14 U/L (15-37); Bilirubin,Total 0.5 mg/dL (0.00-1.00); Blood Urea Nitrogen 7 mg/dL (7-18); Calcium 9.3 mg/dL (8.5-10.1); Carbon Dioxide 28 mmol/L (21-32); Chloride 103 mmol/L (98-108); Estimated CRCL calculation 43 ml/min; Estimated Glomerular Filt Rate 56; Glucose 103 mg/dL (70-99); Osmolality Calculated 286 mOsm/kg (285-295); Potassium 4.2 mmol/L (3.5-5.1); Sodium 139 mmol/L (136-145); Total Protein 7.7 g/dL (6.4-8.2); Troponin I 6.9 ng/L (0.00-60.4)
[2020-06-28 06:58] LABS: Band Neutrophils Percent 0 % (0-6); Basophils Absolute Manual 0.07 K/mm3 (0-0.1); Basophils Percent Manual 1 % (0-1); Eosinophils Absolute Manual 1.14 K/mm3 (0.02-0.5); Eosinophils Percent Manual 15 % (1-6); Lymphocytes Absolute Manual 1.74 K/mm3 (1.1-4.5); Lymphocytes Percent Manual 23 % (18-44); Monocytes Percent Manual 4 % (3-9); Neutrophils Absolute Manual 4.33 K/mm3 (1.3-6.7); Neutrophils Percent Manual 57 % (46-73); Platelet Estimate Adequate (Adequate); Total Cells Counted 100
[2020-06-28 07:00] VITALS: PULSE 81; RESP 20; O2SAT 94
[2020-06-28] MEDS: methylPREDNISolone SOD SUCC 40 MG VIAL 80 MG IV PUSH (07:04)
[2020-06-28] MEDS: ALBUTEROL SULFATE NEB 2.5 MG/3 ML INH INHALATION (07:05)
[2020-06-28 07:13] VITALS: PULSE 78; RESP 20; O2SAT 100
[2020-06-28 07:24] VITALS: BP 142/81; PULSE 80; RESP 20; O2SAT 98
== END 2020-06-28 07:30 | disposition home or self-care (01) ==
PROVIDERS: Emergency Provider Emergency Medicine; PCP Family Medicine
DX: J44.1 Chronic obstructive pulmonary disease with (acute) exacerbation (principal); I10 Essential (primary) hypertension; Z87.891 Personal history of nicotine dependence
CPT/HCPCS: 36415; 36600; 71045; 80053; 82805; 84484; 85025; 85380; 87040; 87426; 87804; 93005; 94640; 96374; 99284; A9270; J2920

== ENCOUNTER 2020-07-01 11:01 | Outpatient (CLI) | payer MEDICARE, SELFPAY ==
[2020-07-01 11:09] LABS: Basophils Absolute Auto 0.05 K/mm3 (0.00-0.10); Basophils Percent Auto 0.5 % (0.0-1.0); Eosinophils Absolute Auto 0.07 K/mm3 (0.02-0.50); Eosinophils Percent Auto 0.6 % (1.0-6.0); Hematocrit 41.8 % (37.0-46.0); Hemoglobin 13.7 g/dL (12.4-15.3); Immature Granulocyte Absolute 0.05 K/mm3 (0.00-0.00); Immature Granulocyte Percent A 0.5 % (0.0-0.0); Lymphocytes Absolute Auto 1.65 K/mm3 (1.10-4.50); Lymphocytes Percent Auto 14.9 % (18.0-42.0); Mean Corpuscular HGB Conc 32.8 g/dL (32.0-36.0); Mean Corpuscular Hemoglobin 30.9 pg (27.0-31.0); Mean Corpuscular Volume 94.1 fL (78.0-102.0); Mean Platelet Volume 8.7 fl (8.7-11.0); Monocytes Absolute Auto 0.47 K/mm3 (0.10-0.90); Monocytes Percent Auto 4.2 % (2.0-11.0); Neutrophils Absolute Auto 8.8 K/mm3 (1.7-7.2); Neutrophils Percent Auto 79.3 % (50.0-70.0); Platelet Count Result 354 K/mm3 (150-420); Red Blood Count 4.44 M/mm3 (4.70-6.10); Red Cell Distribution Width 13.6 % (11.6-14.4); White Blood Count 11.1 K/mm3 (4.8-10.8)
[2020-07-01 11:36] LABS: Alanine Aminotransferase 24 U/L (16-63); Albumin Level 3.8 g/dL (3.4-5.0); Alkaline Phosphatase 64 U/L (46-116); Anion Gap 9 mmol/L (8-16); Aspartate Amino Transferase 16 U/L (15-37); Bilirubin,Total 0.3 mg/dL (0.00-1.00); Blood Urea Nitrogen 13 mg/dL (7-18); Calcium 9.2 mg/dL (8.5-10.1); Carbon Dioxide 28 mmol/L (21-32); Chloride 104 mmol/L (98-108); Creatine Kinase 58 U/L (39-308); Estimated Glomerular Filt Rate 60; Glucose 97 mg/dL (70-99); Osmolality Calculated 292 mOsm/kg (285-295); Sodium 141 mmol/L (136-145); Total Protein 7.4 g/dL (6.4-8.2); Troponin I 7.3 ng/L (0.00-60.4)
== END 2020-07-01 11:02 | disposition home or self-care (01) ==
LOC: CHSLAB 11:03
PROVIDERS: PCP Family Medicine; Visit Provider Family Medicine
DX: R07.89 Other chest pain (principal)
CPT/HCPCS: 36415; 80053; 82550; 82553; 84484; 85025

== ENCOUNTER 2020-07-15 02:48 | Emergency (ER) | payer MEDICARE, OTHER, SELFPAY ==
--- NOTE | ~2020-07-15 | XR_ITS ---
EXAMINATION: XR chest 1V portable DATE: 07/15/2020 03:48 INDICATION: Cough and shortness of breath TECHNIQUE: frontal view of the chest was obtained. COMPARISON: Chest radiograph dated 06/28/[address] dated 04/06/2020 FINDINGS: Again seen is hyperexpansion lungs consistent with mild to moderate emphysema better appreciated on p rior CT. Chronic biapical pleural-parenchymal scarring. Scattered bilateral calcified pulmonary nodul es and calcified mediastinal and bilateral hilar lymph nodes consistent with old granulomatous diseas e. No other airspace opacities, pulmonary edema, pleural effusion or pneumothorax. The cardiomediasti nal silhouette is normal. Visualized bones and soft tissues are unremarkable. IMPRESSION: 1. Mild to moderate emphysema and scattered sequela of old granulomatous disease. No acute cardiopulm onary disease. Reviewed, dictated and finalized at location A. TAL DATA ANALYST IMPRESSION: 1. Mild to moderate emphysema and scattered sequela of old granulomatous diseas e. No acute cardiopulmonary disease.
[2020-07-15 02:50] VITALS: BP 154/82; PULSE 84; RESP 24; TEMP 37.1; O2SAT 98
[2020-07-15 03:06] VITALS: BP 132/79; PULSE 87; RESP 22; O2SAT 98
--- NOTE | 2020-07-15 03:08 | ECG_ITS ---
Measurements Intervals [place] Rate: 82 P: 86 [place]: 162 QRS: 78 QRSD: 93 T: 82 QT: 361 QTc: 423 Interpretive Statements SINUS RHYTHM VOLTAGE CRITERIA FOR LVH BASELINE ARTIFACT- I, III, AVR, AVL, AVF, V4-V6 BORDERLINE ECG Electronically Signed On 07-15-2020 7:32:38 RANCH RIDER by Brock Seymour D.O.
--- NOTE | 2020-07-15 03:10 | ED.GENADULT ---
HPI - General Adult General Chief complaint: Shortness of Breath/Dyspnea Stated complaint: Shortness of Breath Source: patient Mode of arrival: EMS Limitations: no limitations History of Present Illness HPI narrative: Karan is a 64M with a PMH of COPD, tobacco abuse and HTN that presented to the ED via EMS with SOB. He had a COPD exacerbation 2 weeks ago. He was doing better until 3 days ago. Then he started having increasing cough, sputum production and SOB. When he is coughing he gets near-syncope. No CP, N/V or syncope. No lower extremity swelling, fevers or chills. Related Data Home Medications Medication Instructions Recorded Confirmed folic acid 1 mg PO DAILY 06/06/19 07/15/20 loratadine 10 mg PO DAILY 06/06/19 07/15/20 citalopram 10 mg PO DAILY 05/26/20 07/15/20 albuterol sulfate 2.5 mg CONTINUOUS NEBULIZATION PRN 06/28/20 07/15/20 PRN Allergies Allergy/AdvReac Type Severity Reaction Status Date / Time No Known Allergies Allergy Verified 04/25/14 17:32 Review of Systems Constitutional: Constitutional: Denies chills and Denies fever(s) Eyes: Eyes: Reports no additional eye complaints ENT: Reports system reviewed and no additional complaints, except as documented Cardiovascular: Cardiovascular: Reports as per HPI Respiratory: Respiratory: Reports as per HPI Gastrointestinal: Gastrointestinal: Reports no additional gastrointestinal complaints Genitourinary: Genitourinary: Reports no additional male genitourinary complaints Musculoskeletal: Musculoskeletal: Reports no additional musculoskeletal complaints Integumentary/Breasts: Skin/Breast: Reports system reviewed and no additional complaints, except as docu Neurologic: Reports system reviewed and no additional complaints, except as documented Psychiatric: Psychiatric: Reports no additional psychiatric complaints Endocrine: Endocrine: Reports no additional endocrine complaints Hematologic/Lymphatic: Hematologic/Lymphatic: Reports no additional hematologic/lymphatic complaints Allergic/Immunologic: Allergic/Immunologic: Reports no additional allergic/immunologic complaints [facility] Past Medical History Medical History (Updated 07/15/20 @ 04:03 by Osito Ramesh DO) COPD (chronic obstructive pulmonary disease) Depression HTN (hypertension) Light-headedness Vertigo Family History Family History Mother CAD (coronary artery disease) Father Blood clot in vein Social History Social History Smoking packs per day: 1 Smoking cigarettes per day: 20.0 Years smoked: 45 Smoking pack-years: 45.00 Smoking status: Former smoker Tobacco type: cigarettes Second hand tobacco smoke exposure: Yes Smoking end date: 03/30/20 Alcohol intake: former Drinks per week: 18 Substance use: never Substance use type: does not use Gender identity (if verbalized by the patient): Male Spiritual care concerns: No Agree to blood products: Yes Exam Const: General: no acute distress and alert Orientation/consciousness: patient oriented x3 Limitations: No altered mental status HENMT: Head: normal to inspection Eyes: Conjunctivae: conjunctivae normal Pupils: Equal, round and reactive pupils present Neck: Neck: normal visual inspection Chest: Other: barrell chest Resp: Other: Mild distress with increased work of breathing. Cough present on exam. Diffuse wheezing with poor air movement and prolonged expiratory phase. Cardio: Rate: regular rate Rhythm: regular rhythm Heart sounds: no murmurs GI: GI Palp: Yes Soft to palpation, No Tenderness to palpation present (GI) and No Guarding due to palpation present (GI) Skin: General skin exam: normal color Rashes: no rashes Neuro: General: patient oriented x3 and moves all extremities Extrem: General: normal to inspection Psych: Mental Status: mental status hiram
[2020-07-15] MEDS: ALBUTEROL SULFATE (*SP) INHALER 2 PUFF INHALATION (03:18)
[2020-07-15] MEDS: methylPREDNISolone SOD SUCC 125 MG VIAL IV PUSH (03:19)
[2020-07-15 03:36] LABS: Hematocrit 40.6 % (37.0-46.0); Hemoglobin 13.3 g/dL (12.4-15.3); Mean Corpuscular HGB Conc 32.8 g/dL (32.0-36.0); Mean Corpuscular Hemoglobin 30.1 pg (27.0-31.0); Mean Corpuscular Volume 91.9 fL (78.0-102.0); Mean Platelet Volume 9.1 fl (8.7-11.0); Platelet Count Result 298 K/mm3 (150-420); Red Blood Count 4.42 M/mm3 (4.70-6.10); Red Cell Distribution Width 12.9 % (11.6-14.4); White Blood Count 11.7 K/mm3 (4.8-10.8)
[2020-07-15 03:56] LABS: Anion Gap 9 mmol/L (8-16); Blood Urea Nitrogen 11 mg/dL (7-18); Calcium 8.9 mg/dL (8.5-10.1); Carbon Dioxide 25 mmol/L (21-32); Chloride 100 mmol/L (98-108); Estimated CRCL calculation 43 ml/min; Estimated Glomerular Filt Rate 57; Glucose 109 mg/dL (70-99); Osmolality Calculated 278 mOsm/kg (285-295); Sodium 134 mmol/L (136-145); Troponin I 6.7 ng/L (0.00-60.4)
[2020-07-15 03:58] LABS: Influenza Control Valid (Valid); SARS-CoV-2 Ag Negative (Negative)
[2020-07-15 03:59] LABS: BNP 25.3 pg/mL (0-100)
[2020-07-15] MEDS: AZITHROMYCIN 250 MG TABLET 500 MG PO (04:01)
[2020-07-15 04:02] VITALS: O2SAT 93
[2020-07-15 04:03] LABS: Band Neutrophils Percent 0 % (0-6); Basophils Percent Manual 0 % (0-1); Eosinophils Absolute Manual 1.63 K/mm3 (0.02-0.5); Eosinophils Percent Manual 14 % (1-6); Lymphocytes Absolute Manual 2.34 K/mm3 (1.1-4.5); Lymphocytes Percent Manual 20 % (18-44); Monocytes Percent Manual 6 % (3-9); Neutrophils Absolute Manual 7.02 K/mm3 (1.3-6.7); Neutrophils Percent Manual 60 % (46-73); Platelet Estimate Adequate (Adequate)
[2020-07-15 04:06] VITALS: BP 133/69; PULSE 85; RESP 20; TEMP 36.8; O2SAT 94
== END 2020-07-15 04:16 | disposition home or self-care (01) ==
PROVIDERS: Emergency Provider Family Medicine; PCP Family Medicine
DX: J44.1 Chronic obstructive pulmonary disease with (acute) exacerbation (principal); I10 Essential (primary) hypertension; Z87.891 Personal history of nicotine dependence
CPT/HCPCS: 71045; 80048; 83880; 84484; 85025; 87426; 87804; 93005; 96374; 99283; 99284; A9270; J2930

== ENCOUNTER 2020-07-18 23:15 | Emergency (ER) | payer MEDICARE, OTHER, SELFPAY ==
--- NOTE | ~2020-07-18 | XR_ITS ---
EXAMINATION: XR chest 2V DATE: 07/19/2020 00:06 INDICATION: COPD presenting with shortness of breath TECHNIQUE: frontal and lateral views of the chest were obtained. COMPARISON: Chest radiograph dated 07/15/2020 FINDINGS: Hyperexpansion of lungs with flattening of the diaphragm consistent with emphysema better appreciated on CT dated 04/06/2020. Mild biapical pleural-parenchymal scarring. Multiple scattered bilateral calc ified pulmonary nodules along with calcified bilateral hilar and mediastinal lymph nodes consistent w ith old granulomatous disease. The cardiomediastinal silhouette is normal. Mild thoracic spondylosis. IMPRESSION: 1. Emphysema. No acute cardiopulmonary disease. Reviewed, dictated and finalized at location A. DAMAGE TRAINEE
--- NOTE | ~2020-07-18 | CT_ITS ---
EXAMINATION: CTA chest PE protocol DATE: 07/19/2020 01:00 INDICATION: Shortness of breath and elevated d-dimer. TECHNIQUE: Computed tomography (CT) pulmonary angiogram of the chest was performed with 100 mL Omnipa que-350 intravenous contrast. Additional 3D reconstructions utilizing coronal maximum intensity proje ction (MIP) were performed. Automated exposure control and iterative reconstruction technique were em ployed. The dose-length product was 173.09 mGy-cm. COMPARISON: 04/06/2020 FINDINGS: Excellent contrast opacification of the pulmonary arteries. There is mild streak artifact from dense contrast in the superior vena cava and right atrium. Mild scattered respiratory motion artifact which does not significantly limit evaluation. Moderate emphysema with paraseptal bullous changes and pleu ral parenchymal scarring at the bilateral upper lobes. A few bilateral scattered calcified pulmonary nodules as well as calcified bilateral hilar and mediastinal lymph nodes consistent with old granulom atous disease. No pneumonia, pulmonary edema, pleural effusion or pneumothorax. Heart size is normal. Small pericardial effusion. Thoracic aorta is normal in caliber with no dissection. No pathologicall y enlarged thoracic lymphadenopathy. Visual is upper abdomen is unremarkable. Mild thoracic and sever e lower cervical spondylosis. IMPRESSION: 1. No pulmonary embolism or other acute cardiopulmonary disease. 2. Moderate emphysema with pleural parenchymal scarring at the bilateral apices. 3. Small pericardial effusion. Reviewed, dictated and finalized at location A. CHIEF IMPRESSION: 1. No pulmonary embolism or other acute cardiopulmonary disease. 2. Moderate emphysema with pleural parenchymal scarring at the bilateral apices . 3. Small pericardial effusion.
[2020-07-18 23:25] VITALS: BP 129/70; PULSE 92; RESP 18; TEMP 37; O2SAT 98
--- NOTE | 2020-07-18 23:31 | ECG_ITS ---
Measurements Intervals [place] Rate: P: ND: QRS: QRSD: T: QT: QTc: Interpretive Statements SINUS RHYTHM CANNOT RULE OUT SEPTAL INFARCT, AGE INDETERMINATE BORDERLINE ST-T WAVE ABNORMALITY- HIGH LATERAL LEADS BASELINE ARTIFACT- I, II, III, AVR, AVL, AVF, V1-V3 ABNORMAL ECG Electronically Signed On 07-21-2020 7:46:17 [place]ER by Brock Seymour D.O.
[2020-07-18] MEDS: IPRATROPIUM 0.5 MG/ALBUTEROL SULFATE 2.5 MG AMPUL.NEB 3 ML INHALATION (23:36)
[2020-07-18] MEDS: SODIUM CHLORIDE 0.9% 3 ML NEB FOR INHALATION (23:37)
[2020-07-19 00:01] LABS: Base Excess ABG -1.4 mmol/L (0-2); Carboxyhemoglobin 2.1 % (0-1.5); HCO3 ABG 22.7 mmol/L (23-29); Methemoglobin ABG 0.2 % (0-1.5); Oxygen Content ABG 18.7 %vol (16.0-22.0); Oxygen Saturation ABG 99.3 % (95-97); PCO2 ABG 36.4 mmHg (35-45); PO2 ABG 231.4 mmHg (75-85); Reduced Hemoglobin 0.7 % (0-1.5); Total Hemoglobin 13.3 g/dL; pH ABG 7.41 (7.35-7.45)
[2020-07-19 00:03] VITALS: PULSE 92; RESP 18; O2SAT 98
[2020-07-19 00:04] VITALS: PULSE 90; RESP 16; O2SAT 98
[2020-07-19 00:04] LABS: Basophils Absolute Auto 0.02 K/mm3 (0.00-0.10); Basophils Percent Auto 0.1 % (0.0-1.0); Eosinophils Absolute Auto 0.01 K/mm3 (0.02-0.50); Eosinophils Percent Auto 0.1 % (1.0-6.0); Hemoglobin 12.3 g/dL (12.4-15.3); Immature Granulocyte Absolute 0.08 K/mm3 (0.00-0.00); Immature Granulocyte Percent A 0.5 % (0.0-0.0); Lymphocytes Absolute Auto 1.68 K/mm3 (1.10-4.50); Lymphocytes Percent Auto 11.5 % (18.0-42.0); Mean Corpuscular HGB Conc 33.2 g/dL (32.0-36.0); Mean Corpuscular Hemoglobin 30.6 pg (27.0-31.0); Mean Platelet Volume 9.1 fl (8.7-11.0); Monocytes Absolute Auto 0.97 K/mm3 (0.10-0.90); Monocytes Percent Auto 6.7 % (2.0-11.0); Neutrophils Absolute Auto 11.8 K/mm3 (1.7-7.2); Neutrophils Percent Auto 81.1 % (50.0-70.0); Platelet Count Result 258 K/mm3 (150-420); Red Blood Count 4.02 M/mm3 (4.70-6.10); Red Cell Distribution Width 13.2 % (11.6-14.4); White Blood Count 14.6 K/mm3 (4.8-10.8)
[2020-07-19 00:16] LABS: Site Drawn RIGHT BRACHIAL
[2020-07-19 00:17] LABS: Modified Allen's Test Pass
[2020-07-19 00:18] LABS: Device NASAL CANNULA
[2020-07-19 00:21] LABS: INR 0.9; Partial Thromboplastin Time 25.9 SEC (23.90-30.70)
[2020-07-19 00:26] LABS: D Dimer 0.52 mg/L (0.19-0.50)
[2020-07-19 00:27] LABS: BNP 55.2 pg/mL (0-100)
[2020-07-19 00:29] LABS: Alanine Aminotransferase 13 U/L (16-63); Albumin Level 3.2 g/dL (3.4-5.0); Alkaline Phosphatase 69 U/L (46-116); Anion Gap 7 mmol/L (8-16); Aspartate Amino Transferase 12 U/L (15-37); Bilirubin,Total 0.4 mg/dL (0.00-1.00); Blood Urea Nitrogen 14 mg/dL (7-18); Calcium 8.7 mg/dL (8.5-10.1); Carbon Dioxide 26 mmol/L (21-32); Chloride 103 mmol/L (98-108); Estimated CRCL calculation 47 ml/min; Estimated Glomerular Filt Rate > 60; Glucose 99 mg/dL (70-99); Osmolality Calculated 282 mOsm/kg (285-295); Potassium 4.2 mmol/L (3.5-5.1); Sodium 136 mmol/L (136-145); Total Protein 6.7 g/dL (6.4-8.2)
[2020-07-19] MEDS: ASPIRIN 81 MG CHEWABLE TABLET 324 MG PO (01:00)
--- NOTE | 2020-07-19 01:28 | ED.SOB ---
HPI - SOB/Dyspnea General Chief Complaint: Upper Respiratory Infection Stated Complaint: 64YO male w/ known h.o COPD normally on room air and inhalors brought into ED by EMS after he has been SOB for last several days. Pt states he has been using inhalors w/ no improvement in respiratory status. Patient was picked up by EMS who found his sats in the 60's improved w/ 4L O2 via NC. Related Data Home Medications Medication Instructions Recorded Confirmed folic acid 1 mg PO DAILY 06/06/19 07/18/20 loratadine 10 mg PO DAILY 06/06/19 07/18/20 citalopram 10 mg PO DAILY 05/26/20 07/18/20 albuterol sulfate 2.5 mg CONTINUOUS NEBULIZATION PRN 06/28/20 07/18/20 PRN Allergies Allergy/AdvReac Type Severity Reaction Status Date / Time No Known Allergies Allergy Verified 04/25/14 17:32 Review of Systems Review of Systems: All systems reviewed & are unremarkable except as noted in HPI and below Constitutional: Constitutional: Reports no additional constitutional complaints, Denies chills, Denies fever(s) and Denies weakness Eyes: Eyes: Reports no additional eye complaints ENT: Reports system reviewed and no additional complaints, except as documented Cardiovascular: Cardiovascular: Reports no additional cardiovascular complaints and Denies chest pain Respiratory: Respiratory: Denies cough, Reports dyspnea and Reports wheezing Comments: O2 Requiring on 4L via [place] Gastrointestinal: Gastrointestinal: Reports no additional gastrointestinal complaints Genitourinary: Genitourinary: Reports no additional male genitourinary complaints Musculoskeletal: Musculoskeletal: Reports no additional musculoskeletal complaints Integumentary/Breasts: Skin/Breast: Reports system reviewed and no additional complaints, except as docu Neurologic: Reports system reviewed and no additional complaints, except as documented Psychiatric: Psychiatric: Reports no additional psychiatric complaints Endocrine: Endocrine: Reports no additional endocrine complaints Hematologic/Lymphatic: Hematologic/Lymphatic: Reports no additional hematologic/lymphatic complaints Allergic/Immunologic: Allergic/Immunologic: Reports no additional allergic/immunologic complaints [facility] Past Medical History Medical History (Updated 07/19/20 @ 02:34 by Oswaldo Macario MD) COPD (chronic obstructive pulmonary disease) Depression HTN (hypertension) Light-headedness Vertigo Family History Family History Mother CAD (coronary artery disease) Father Blood clot in vein Social History Social History Smoking packs per day: 1 Smoking cigarettes per day: 20.0 Years smoked: 45 Smoking pack-years: 45.00 Smoking status: Former smoker Tobacco type: cigarettes Second hand tobacco smoke exposure: Yes Smoking end date: 03/30/20 Alcohol intake: former Drinks per week: 18 Substance use: never Substance use type: does not use Gender identity (if verbalized by the patient): Male Spiritual care concerns: No Agree to blood products: Yes Exam Const: General: alert and ill appearing Nutritional Appearance: thin Orientation/consciousness: patient oriented x3 HENMT: Head: normal to inspection Eyes: Conjunctivae: conjunctivae normal Pupils: Equal, round and reactive pupils present Neck: Neck: normal visual inspection Chest: Chest palpation & inspection: normal inspection of the chest Resp: Effort & Inspection: no use of accessory muscles Auscultation: rhonchi and wheezes Cardio: Rate: regular rate Rhythm: regular rhythm GI: Inspection: non-distended GI Palp: Yes Soft to palpation and No Tenderness to palpation present (GI) Back/Spine/Pelvis: Back: no CVA tenderness Skin: General skin exam: normal color Rashes: no rashes Neuro: General: patient oriented x3, moves all extremities, no meningeal signs, no focal motor def
--- NOTE | 2020-07-19 01:31 | PC.NURSE ---
Erick called for transfer potential due to positive trop.
--- NOTE | 2020-07-19 02:08 | PC.NURSE ---
called again to beulah due to no call back from cardiology
[2020-07-19 02:09] VITALS: BP 130/70; PULSE 87; RESP 18; O2SAT 98
--- NOTE | 2020-07-19 02:27 | PC.NURSE ---
Cardiology called back
[2020-07-19 03:00] VITALS: BP 130/89; PULSE 88; RESP 18; TEMP 36.6; O2SAT 99
== END 2020-07-19 03:01 | disposition short-term general hospital (02) ==
PROVIDERS: Emergency Provider Family Medicine; PCP Family Medicine
DX: I21.4 Non-ST elevation (NSTEMI) myocardial infarction (principal); J44.1 Chronic obstructive pulmonary disease with (acute) exacerbation; I10 Essential (primary) hypertension; Z87.891 Personal history of nicotine dependence
CPT/HCPCS: 36415; 36600; 71046; 71275; 80053; 82375; 82805; 83050; 83880; 84484; 85025; 85380; 85610; 85730; 93005; 96360; 96361; 99285; A9270; Q9965; Q9967

== ENCOUNTER 2020-07-19 03:28 | Inpatient (IN) | payer MEDICARE, OTHER, SELFPAY ==
[2020-07-19] VITALS (23 sets, daily range): BP systolic 110–147; BP diastolic 58–82; PULSE 67–98; RESP 15–20; TEMP 35.8–37.1; O2SAT 94–100; BMI 17.0
--- NOTE | 2020-07-19 03:58 | PC.NURSE ---
This patient, Karan Sexton, was admitted to IMU Room 200-01. Patient/family oriented to hospital policies and general routines including ID bracelet, bed and alarms, visiting hours, pain management, procedures, bathroom and other care routines, personal items, smoking policy, room service/diet, and visiting hours. Information on how to activate the Rapid Response Team has been discussed. Patient/Family are encouraged to report perceived risks to care and to ask questions if they do not understand what they are told or what they should do.
--- NOTE | 2020-07-19 04:43 | ECG_ITS ---
Measurements Intervals [place] Rate: 74 P: 80 [place]: 149 QRS: 67 QRSD: 102 T: 74 QT: 386 QTc: 428 Interpretive Statements SINUS RHYTHM ATRIAL PREMATURE COMPLEX BORDERLINE R WAVE PROGRESSION, ANTERIOR LEADS BORDERLINE ECG Electronically Signed On 07-19-2020 7:17:20 TABLEAU REPORT DEVELOPER by Brock Seymour D.O.
--- NOTE | 2020-07-19 04:58 | PM.IMHP ---
H&P: HPI History of Present Illness Date/Time: 07/19/20 04:58 Chief Complaint: shortness of breath Narrative: This is a 64 year old male with known COPD who continues to smoke 1/2 ppd of cigarettes and is not on any home oxygen. The patient was directly admitted to our hospital tonight after he presented at [facility] for a return visit secondary to worsening shortness of breath and incidentally found to have an elevated troponin. His symptoms started 5 days ago and he has had worsening coughing spells that are poorly productive. His inhalers have not been helping and he ran out of nebulizer medication which usually helps him in these cases. He was seen at [facility] 3 days ago and tested negative for influenza and COVID-19. He was sent home with Azithromycin and prednisone. This evening he called EMS which found him saturating in the 60s on room air and placed him on 4L of oxygen via [place]. He has had midsternal pleuritic chest pain which is only present when he is coughing. He denies any exertional or positional chest discomfort. He also denies any significant fevers, chills, palpitations, abdominal pain, dysuria, hematuria, nausea, vomiting, diarrhea, rectal bleeding, black stools, LE swelling, pain, or redness. He has no previous history of CAD and his last cardiac stress test was over a year ago. He has never had a cardiac angiogram before. Routine labs obtained at [facility] revealed an elevated troponin. CTA Chest was negative for acute pulmonary embolism or aortic dissection. Cardiology, Dr. Gray was consulted by ER provider who has asked that we admit the patient here and Cardiology will evaluate him in the morning. The patient was treated with Aspirin, therapeutic Lovenox, and Solumedrol at [facility]. No other complaints. Review of Systems Review of Systems: All systems reviewed & are unremarkable except as noted in HPI and below PMFSH Past Medical History Medical History COPD (chronic obstructive pulmonary disease) Depression HTN (hypertension) Light-headedness Vertigo Family History Family History Mother CAD (coronary artery disease) Chronic obstructive pulmonary disease Father Blood clot in vein Social History Social History Smoking packs per day: 0.5 Smoking cigarettes per day: 10.0 Years smoked: 45 Smoking pack-years: 22.50 Smoking status: Light tobacco smoker Tobacco type: cigarettes Second hand tobacco smoke exposure: No Smoking end date: 03/30/20 Alcohol intake: former Drinks per week: 18 Substance use: never Substance use type: does not use Last use: Quit drinking alcohol 18 months ago Gender identity (if verbalized by the patient): Male Spiritual care concerns: No Agree to blood products: Yes Comments Past surgical history is reviewed and unremarkable. Meds Home Medications and Allergies Home Medications Medication Instructions Recorded Confirmed Type folic acid 1 mg PO DAILY 06/06/19 07/19/20 History loratadine 10 mg PO DAILY 06/06/19 07/19/20 History metoprolol succinate 12.5 mg PO DAILY 30 Days #15 tablet 06/07/19 07/19/20 Rx albuterol sulfate 2 puff INHALATION Q4-6H PRN #1 g 04/07/20 07/19/20 Rx tiotropium bromide [Spiriva 2 puff INHALATION DAILY #4 gm 04/07/20 07/19/20 Rx Respimat] citalopram 10 mg PO DAILY 05/26/20 07/19/20 History albuterol sulfate 2.5 mg CONTINUOUS NEBULIZATION PRN 06/28/20 07/19/20 History PRN prednisone 50 mg PO DAILY #4 tablet 07/15/20 07/19/20 Rx Allergies Allergy/AdvReac Type Severity Reaction Status Date / Time No Known Allergies Allergy Verified 04/25/14 17:32 Vital Signs Vital Signs - 24 hr 07/19/20 03:35 07/19/20 04:00 07/19/20 04:24 Temperature 36.0 C L 36.0 C L Pulse Rate 93 80 93 Respiratory Rate 16 16 Blood Pressure 139/76 139/
[2020-07-19 05:01] LABS: Basophils Percent Auto 0.1 % (0.2-1.2); Hematocrit 39.9 % (42.0-52.0); Hemoglobin 13.3 g/dL (14.0-18.0); Immature Granulocyte Absolute 0.08 K/mm3 (0.00-0.031); Immature Granulocyte Percent A 0.6 % (0-0.5); Lymphocytes Absolute Auto 0.89 K/mm3 (0.9-3.2); Lymphocytes Percent Auto 6.6 % (18.3-44.2); Mean Corpuscular HGB Conc 33.3 g/dl (32-36); Mean Corpuscular Hemoglobin 30.8 pg (26-34); Mean Corpuscular Volume 92.4 fl (80-100); Mean Platelet Volume 9.2 fl (7.4-10.4); Monocytes Absolute Auto 0.3 K/mm3 (0.1-0.6); Monocytes Percent Auto 1.9 % (2.6-8.5); Neutrophils Absolute Auto 12.3 K/mm3 (1.3-6.7); Neutrophils Percent Auto 90.8 % (45.5-73.1); Platelet Count Result 260 k/mm3 (150-375); Red Blood Count 4.32 M/mm3 (4.6-6.20); Red Cell Distribution Width 13.3 % (11.5-14.5); White Blood Count 13.5 K/mm3 (4.5-10.0)
[2020-07-19 05:45] LABS: Anion Gap 9 mmol/L (8-16); Blood Urea Nitrogen 14 mg/dL (9-20); Calcium 9.1 mg/dL (8.4-10.2); Carbon Dioxide 26 mmol/L (22-30); Chloride 102 mmol/L (98-107); Estimated CRCL calculation 52 ml/min; Estimated Glomerular Filt Rate > 60; Glucose 106 mg/dL (75-110); Magnesium 2.2 mg/dL (1.6-2.3); Potassium 4.2 mmol/L (3.4-5.0); Sodium 137 mmol/L (137-145)
[2020-07-19 05:52] LABS: Troponin I 0.733 ng/mL (0.000-0.034)
[2020-07-19] MEDS: methylPREDNISolone SOD SUCC 125 MG VIAL 60 MG IV PUSH ×3 (06:52→20:27)
[2020-07-19] MEDS: ALBUTEROL SULFATE NEB 2.5 MG/0.5 ML INH 5 MG INHALATION ×3 (08:04→20:10)
[2020-07-19 08:29] LABS: Troponin I 0.688 ng/mL (0.000-0.034)
[2020-07-19] MEDS: CITALOPRAM HYDROBROMIDE 10 MG TABLET PO (08:55)
[2020-07-19] MEDS: guaiFENesin/DEXTROMETHORPHAN 10 ML UDC 5 ML PO (08:55)
[2020-07-19] MEDS: METOPROLOL SUCCINATE EXT REL 12.5 MG TABCR PO (08:55)
[2020-07-19] MEDS: LORATADINE 10 MG TABLET PO (08:55)
[2020-07-19] MEDS: FOLIC ACID 1 MG TABLET PO (08:55)
[2020-07-19 11:49] LABS: Troponin I 0.574 ng/mL (0.000-0.034)
--- NOTE | 2020-07-19 14:23 | PM.CNCAR ---
Assessment and Plan Assessment and plan (1) Elevated troponin: Code(s): R77.8 - Other specified abnormalities of plasma proteins Status: Acute Assessment and Plan: Downward trending since admission. Possibly related to hypoxia with acute on chronic respiratory failure, however, cannot exclude subacute NSTEMI due to myocardial ischemia/underlying obstructive CAD. EKG largely unchanged acute ischemic changes. Patient denies other symptoms suggestive of angina. No prior history of CAD but cannot be excluded given risk factors including tobacco abuse, age, hypertension. Check lipid panel. Continue telemetry monitoring overnight. Echocardiogram May 2019 EF 60 65% without wall motion abnormalities. Check 2D echocardiogram to assess LV function, size, valve pathology, pulmonary pressures and her wall motion abnormalities. Ischemic evaluation advised but depending on results of echocardiogram may influence proceeding with invasive versus noninvasive assessment. Explained to patient in detail. Questions answered to his satisfaction. Aspirin 81 mg daily. Begin statin therapy. Risk modification counseling. Recommendations to follow. (2) COPD exacerbation: Code(s): J44.1 - Chronic obstructive pulmonary disease with (acute) exacerbation Status: Acute Assessment and Plan: Per primary service. Wean O2 as tolerated. Home O2 eval. Apnea link overnight. (3) HTN (hypertension): Qualifiers: Hypertension type: unspecified Qualified Code(s): I10 - Essential (primary) hypertension Code(s): I10 - Essential (primary) hypertension Status: Chronic Assessment and Plan: Reasonably controlled at this time. Continue home medical therapy for now. (4) Tobacco dependence: Code(s): F17.200 - Nicotine dependence, unspecified, uncomplicated Status: Chronic Assessment and Plan: Smoking cessation counseling. History of Present Illness History of Present Illness Consult date/time: Date of service: 07/19/20 14:[address] Newman of the [facility] for my opinion regarding elevated troponin. Requesting physician: Davidson Newman MD Consult reason: Other (elevated troponin) Reason For Visit: COPD exacerbation, elevated troponin Narrative: Patient is a 64-year-old male with a past medical history state for tobacco use, emphysema/COPD, history of heavy alcohol abuse quit 1 and half years ago, hypertension who has been complaining of worsening intermittent shortness of breath, wheezing and coughing since . He states nebulizer is usually improve his symptoms when he becomes more short of breath and coughs yet he ran out a day prior to admission and became very short of breath and presented to the ER. He was noted he was severely hypoxic with oxygen saturations reported in the 60s 20 present to [facility]. He improved with oxygen supplementation and nebulizer therapy. He was started on prednisone. For unclear reasons a troponin was checked and was found to be elevated the outside hospital and upon transfer again 0.7, 0.68, 0.57 trending downward. He denies chest pain at any time. He has no prior known history of CAD, myocardial infarction, CHF, DVT/PE. CT PE protocol was negative for acute thromboembolism admission. He remains on oxygen where as he does not wear supplemental O2 at home. Denies history of sleep apnea, lower extremity edema, orthopnea PND. He denies exertional chest pain, palpitations, fevers, chills, with recent sick contacts. He recently discharged from the ER 3 days ago with acute shortness of breath with coughing improved with nebulizer therapy. He states he is not sure why he is having some which difficulty with some days he feels fine others more short of breath, coughing and fatigue. He is feeling much improved since admission but is still short of breath. Review of Systems Review of Systems:
[2020-07-19 15:33] LABS: Cholesterol 157 mg/dL (0-200); HDL Direct 55 mg/dL; Triglycerides 111 mg/dL (<150)
[2020-07-19 15:44] LABS: LDL Cholesterol Direct 75 mg/dL
--- NOTE | 2020-07-19 17:06 | PM.IMPN ---
Progress Note: A&P Assessment and Plan (1) COPD exacerbation: Code(s): J44.1 - Chronic obstructive pulmonary disease with (acute) exacerbation Status: Acute Assessment and Plan: . Continue oxygen supplementation and wean off as tolerated. Continue bronchodilators and steroid therapy. Finish course of azithromycin which was started 3 days ago. sputum cultures. (2) Elevated troponin: Code(s): R77.8 - Other specified abnormalities of plasma proteins Status: Acute Assessment and Plan: r/o ACS vs. troponin leak, Trend troponin. . The patient was anticoagulated by ER provider. Cardiology recommends echo to assess for wall motion abnormalities and probable further ischemic workup pending those results. (3) Leukocytosis: Qualifiers: Leukocytosis type: unspecified Qualified Code(s): D72.829 - Elevated white blood cell count, unspecified Code(s): D72.829 - Elevated white blood cell count, unspecified Status: Acute Assessment and Plan: Likely secondary to the prednisone that was started 2 days ago in [place]. Monitor CBCd. (4) Normocytic anemia: Code(s): D64.9 - Anemia, unspecified Status: Chronic Assessment and Plan: No signs of acute blood loss. (5) HTN (hypertension): Qualifiers: Hypertension type: unspecified Qualified Code(s): I10 - Essential (primary) hypertension Code(s): I10 - Essential (primary) hypertension Status: Chronic Assessment and Plan: stable. Monitor blood pressure. Continue metoprolol. (6) Tobacco dependence: Code(s): F17.200 - Nicotine dependence, unspecified, uncomplicated Status: Chronic Assessment and Plan: Dr Newman counseled the patient regarding tobacco cessation for 4 minutes. He has verbalized his understanding and agreement. Subjective Date/time seen: 07/19/20 17:06 Interval history: Date of visit 07/19/2020. 64-year-old male with known COPD admitted with increasing respiratory distress. CTA revealed no emboli or infiltrates but troponin was slightly elevated and transferred from [place] to here to be evaluated by Cardiology. Has some chest pressure probably related to his COPD. No history of exertional chest discomfort. He does continue to smoke. EKG no definite ischemic changes and feels better this a.m. Exam Narrative: Exam Narrative: Blood pressure 124/64 pulse 78 regular sat 100% on 2 L nasal cannula afebrile Pupils equal reactive light sclera anicteric Lungs prolonged expiratory phase no wheezing or consolidation CV regular rate rhythm no murmurs Abdomen is soft nontender no masses Extremities without edema distal pulses are 2+ Neuro alert cooperative no focal deficits Objective Data Vital Signs Vital Signs: Vital Signs - 24 hr 07/19/20 03:35 07/19/20 04:00 07/19/20 04:24 Temperature 36.0 C L 36.0 C L Pulse Rate 93 80 93 Respiratory Rate 16 16 Blood Pressure 139/76 139/76 Pulse Oximetry 100 100 100 07/19/20 06:00 07/19/20 08:00 07/19/20 08:05 Temperature 36.2 C L Pulse Rate 70 74 98 Respiratory Rate 16 20 Blood Pressure 138/82 Pulse Oximetry 100 07/19/20 08:09 07/19/20 08:12 07/19/20 08:55 Temperature Pulse Rate 83 92 Respiratory Rate 20 Blood Pressure Pulse Oximetry 98 07/19/20 09:04 07/19/20 10:00 07/19/20 12:00 Temperature 35.8 C L Pulse Rate 76 78 Respiratory Rate 20 Blood Pressure 129/64 Pulse Oximetry 100 100 07/19/20 14:00 07/19/20 14:43 07/19/20 14:45 Temperature Pulse Rate 83 84 Respiratory Rate 20 Blood Pressure Pulse Oximetry 95 07/19/20 16:00 Temperature 37.1 C Pulse Rate 81 Respiratory Rate 18 Blood Pressure 110/58 L Pulse Oximetry 99 Intake/Output Intake/Output: Intake & Output 07/16/20 07/17/20 07/18/20 07/19/20 23:59 23:59 23:59 23:59 Intake Total 240 Output Total 350 Balance -110 Meds/Results Medications: Active Me
[2020-07-20] VITALS (24 sets, daily range): BP systolic 120–152; BP diastolic 56–75; PULSE 68–114; RESP 16–20; TEMP 36.1–36.4; O2SAT 94–100
[2020-07-20] MEDS: guaiFENesin/DEXTROMETHORPHAN 10 ML UDC 5 ML PO (08:27)
[2020-07-20] MEDS: METOPROLOL SUCCINATE EXT REL 12.5 MG TABCR PO (08:28)
[2020-07-20] MEDS: CITALOPRAM HYDROBROMIDE 10 MG TABLET PO (08:28)
[2020-07-20] MEDS: LORATADINE 10 MG TABLET PO (08:28)
[2020-07-20] MEDS: FOLIC ACID 1 MG TABLET PO (08:28)
[2020-07-20] MEDS: methylPREDNISolone SOD SUCC 125 MG VIAL 60 MG IV PUSH ×2 (08:28→20:37)
[2020-07-20] MEDS: ASPIRIN 81 MG ENTERIC TABLET PO (08:29)
[2020-07-20] MEDS: ALBUTEROL SULFATE NEB 2.5 MG/0.5 ML INH 5 MG INHALATION ×3 (08:41→20:09)
--- NOTE | 2020-07-20 14:05 | PM.PNCARD ---
Progress Note: A&P Assessment and Plan (1) Elevated troponin: Code(s): R77.8 - Other specified abnormalities of plasma proteins Status: Acute Assessment and Plan: Downward trending since admission. Possibly related to hypoxia with acute on chronic respiratory failure, however, cannot exclude subacute NSTEMI due to myocardial ischemia/underlying obstructive CAD. EKG largely unchanged acute ischemic changes. Patient denies other symptoms suggestive of angina. No prior history of CAD but cannot be excluded given risk factors including tobacco abuse, age, hypertension. Check lipid panel. Continue telemetry monitoring overnight. Echocardiogram May 2019 EF 60 65% without wall motion abnormalities. Check 2D echocardiogram ANNELIESE in AM to assess LV function, size, valve pathology, pulmonary pressures and/orwall motion abnormalities. Ischemic evaluation advised. I was hoping to utilize echocardiographic results decide whether to proceed with invasive angiography versus nonischemic evaluation. Will keep patient NPO in order to optimize evaluations as appropriate. Aspirin 81 mg daily. Statin therapy Atorvastatin 10mg, although LDL 75. Risk modification counseling. Recommendations to follow. Pt has no known prior CAD. (2) COPD exacerbation: Code(s): J44.1 - Chronic obstructive pulmonary disease with (acute) exacerbation Status: Acute Assessment and Plan: Per primary service. Wean O2 as tolerated. Home O2 eval. Apnea link overnight. (3) HTN (hypertension): Qualifiers: Hypertension type: unspecified Qualified Code(s): I10 - Essential (primary) hypertension Code(s): I10 - Essential (primary) hypertension Status: Chronic Assessment and Plan: Reasonably controlled at this time. Continue home medical therapy for now. (4) Tobacco dependence: Code(s): F17.200 - Nicotine dependence, unspecified, uncomplicated Status: Chronic Assessment and Plan: Smoking cessation counseling. Subjective Date/time seen: Date of Service: 07/20/20 14:05 Follow-up for elevated troponin Patient denies chest pain or new issues overnight. Still remains short of breath but improving. No palpitations, edema. Echo was not obtained as specifically requested yesterday unfortunately. Review of Systems Review of Systems: All systems reviewed & are unremarkable except as noted in HPI and below Constitutional: Constitutional: Reports as per HPI, Reports no additional constitutional complaints, Denies excessive sweating and Reports fatigue Eyes: Eyes: Reports as per HPI and Reports no additional eye complaints ENT: Reports system reviewed and no additional complaints, except as documented and Reports as per HPI Cardiovascular: Cardiovascular: Reports as per HPI, Reports no additional cardiovascular complaints, Denies chest pain, Denies diaphoresis, Denies pedal edema, Denies leg edema, Denies lightheadedness, Denies palpitations, Reports dyspnea and Reports dyspnea on exertion Respiratory: Respiratory: Reports as per HPI, Reports no additional respiratory complaints, Reports cough, Denies hemoptysis, Reports dyspnea, Reports dyspnea on exertion and Reports wheezing Gastrointestinal: Gastrointestinal: Reports as per HPI, Reports no additional gastrointestinal complaints, Denies abdominal pain, Denies bloating, Denies hematochezia, Denies diarrhea, Denies nausea and Denies vomiting Genitourinary: Genitourinary: Reports no additional male genitourinary complaints, Reports as per HPI, Denies hematuria and Denies dysuria Musculoskeletal: Musculoskeletal: Reports no additional musculoskeletal complaints, Reports as per HPI and Denies myalgias Integumentary/Breasts: Skin/Breast: Reports system reviewed and no additional complaints, except as docu, Reports as per HPI and Denies unusual bruising Neurologic: Reports system reviewed and no additional complaints, except as documented, Reports as p
--- NOTE | 2020-07-20 17:05 | PM.IMPN ---
Progress Note: A&P Assessment and Plan (1) COPD exacerbation: Code(s): J44.1 - Chronic obstructive pulmonary disease with (acute) exacerbation Status: Acute Assessment and Plan: The patient has been placed in observation status. Continue oxygen supplementation and wean off as tolerated. Continue bronchodilators and steroid therapy. Finish course of azithromycin which was started 3 days ago. (2) Elevated troponin: Code(s): R77.8 - Other specified abnormalities of plasma proteins Status: Acute Assessment and Plan: r/o ACS vs. troponin leak, troponin slowly falling. repeat EKG no change. The patient was anticoagulated by ER provider. Cardiology awaiting results of echo to side about possible cardiac catheterization (3) Leukocytosis: Qualifiers: Leukocytosis type: unspecified Qualified Code(s): D72.829 - Elevated white blood cell count, unspecified Code(s): D72.829 - Elevated white blood cell count, unspecified Status: Acute Assessment and Plan: Likely secondary to the prednisone that was started 2 days ago in [place]. Monitor CBCd. (4) Normocytic anemia: Code(s): D64.9 - Anemia, unspecified Status: Chronic Assessment and Plan: No signs of acute blood loss. (5) HTN (hypertension): Qualifiers: Hypertension type: unspecified Qualified Code(s): I10 - Essential (primary) hypertension Code(s): I10 - Essential (primary) hypertension Status: Chronic Assessment and Plan: stable. Monitor blood pressure. Continue metoprolol. (6) Tobacco dependence: Code(s): F17.200 - Nicotine dependence, unspecified, uncomplicated Status: Chronic Assessment and Plan: Dr Newman counseled the patient regarding tobacco cessation for 4 minutes. He has verbalized his understanding and agreement. Subjective Date/time seen: 07/20/20 17:05 Interval history: Date of visit 07/20/2020. 64-year-old male with known COPD admitted with increasing respiratory distress. CTA revealed no emboli or infiltrates but troponin was slightly elevated and transferred from [place] to here to be evaluated by Cardiology. Has some chest pressure probably related to his COPD. No history of exertional chest discomfort. He does continue to smoke. EKG no definite ischemic changes . A little more wheezy this am Exam Narrative: Exam Narrative: Blood pressure 136/56 pulse 78 regular sat 99% on 2 L nasal cannula afebrile Pupils equal reactive light sclera anicteric Lungs prolonged expiratory phase faint rhonchi and wheezing , no consolidation CV regular rate rhythm no murmurs Abdomen is soft nontender no masses Extremities without edema distal pulses are 2+ Neuro alert cooperative no focal deficits Objective Data Vital Signs Vital Signs: Vital Signs - 24 hr 07/19/20 18:00 07/19/20 19:35 07/19/20 20:00 Temperature 36.3 C L Pulse Rate 79 80 72 Respiratory Rate 20 Blood Pressure 147/67 H Pulse Oximetry 100 100 07/19/20 20:11 07/19/20 20:20 07/19/20 22:00 Temperature Pulse Rate 88 84 67 Respiratory Rate 20 20 Blood Pressure Pulse Oximetry 94 07/19/20 23:39 07/20/20 00:00 07/20/20 02:00 Temperature 36.1 C L Pulse Rate 73 69 85 Respiratory Rate 15 Blood Pressure 116/61 Pulse Oximetry 100 100 07/20/20 03:36 07/20/20 04:00 07/20/20 06:00 Temperature 36.2 C L Pulse Rate 79 74 68 Respiratory Rate 18 Blood Pressure 152/75 H Pulse Oximetry 99 99 07/20/20 08:00 07/20/20 08:28 07/20/20 08:35 Temperature 36.3 C L Pulse Rate 86 91 Respiratory Rate 16 Blood Pressure 120/63 Pulse Oximetry 100 100 07/20/20 08:43 07/20/20 08:45 07/20/20 10:00 Temperature Pulse Rate 91 76 Respiratory Rate 20 Blood Pressure Pulse Oximetry 98 07/20/20 11:28 07/20/20 12:00 07/20/20 13:27 Temperature 36.1 C L Pulse Rate 78 74 93 Respiratory Rate 18 20 Blood Pressure 136
[2020-07-21] VITALS (14 sets, daily range): BP systolic 140–158; BP diastolic 63–68; PULSE 65–90; RESP 12–20; TEMP 36.1–36.6; O2SAT 92–99; BMI 17.9
[2020-07-21] MEDS: ALBUTEROL SULFATE NEB 2.5 MG/0.5 ML INH 5 MG INHALATION ×2 (08:43→14:15)
[2020-07-21] MEDS: METOPROLOL SUCCINATE EXT REL 12.5 MG TABCR PO (09:17)
[2020-07-21] MEDS: ASPIRIN 81 MG ENTERIC TABLET PO (09:17)
[2020-07-21] MEDS: FOLIC ACID 1 MG TABLET PO (09:17)
[2020-07-21] MEDS: LORATADINE 10 MG TABLET PO (09:17)
[2020-07-21] MEDS: CITALOPRAM HYDROBROMIDE 10 MG TABLET PO (09:17)
[2020-07-21] MEDS: methylPREDNISolone SOD SUCC 125 MG VIAL 60 MG IV PUSH (09:18)
--- NOTE | 2020-07-21 09:57 | PM.PNCARD ---
Progress Note: A&P Additional Plan This is a 64-year-old man appears to be hospitalized with a COPD exacerbation. Troponin levels were done in the emergency room without any other evidence of an acute coronary syndrome. Echocardiogram done this morning demonstrates normal left ventricular systolic function with no wall motion abnormalities to raise concern. In this setting I would not recommend pursuing an ischemia workup in this otherwise asymptomatic patient. He certainly does not require catheterization Told the nursing staff that he no longer needs to be held NPO. Disposition per the primary team Kendrick Block MD [facility] Subjective Date/time seen: Date of service: 07/21/20 09:57 Interval history: Follow-up visit in this 64-year-old man with elevated troponin He does not have any cardiovascular symptoms he is not known to have coronary disease and cannot recall having any chest pain at any point that was of concern to him. Exam Const: General: comfortable and no acute distress HENMT: Mouth: Yes moist mucous membranes Eyes: Sclera: sclerae normal Pupils: Equal, round and reactive pupils present Neck: Neck: supple and no JVD Resp: Effort & Inspection: normal respiratory effort Auscultation: clear to auscultation bilaterally Other: Breath sounds somewhat diminished but otherwise clear Cardio: Rate: regular rate Rhythm: regular rhythm Other: No murmur no gallop no rub GI: Auscultation: normal bowel sounds Skin: General skin exam: normal color Neuro: Cognition (Neuro): normal cognition Extrem: General: normal to inspection Objective Data Vital Signs Vital Signs: Vital Signs - 24 hr 07/20/20 10:00 07/20/20 11:28 07/20/20 12:00 Temperature 36.1 C L Pulse Rate 76 78 74 Respiratory Rate 18 Blood Pressure 136/56 L Pulse Oximetry 99 99 07/20/20 13:27 07/20/20 14:00 07/20/20 16:00 Temperature 36.2 C L Pulse Rate 93 80 79 Respiratory Rate 20 18 Blood Pressure 133/61 Pulse Oximetry 94 07/20/20 18:00 07/20/20 19:42 07/20/20 20:00 Temperature 36.4 C Pulse Rate 80 72 114 H Respiratory Rate 18 Blood Pressure 135/56 L Pulse Oximetry 97 99 07/20/20 20:09 07/20/20 20:18 07/20/20 22:00 Temperature Pulse Rate 96 91 69 Respiratory Rate 20 20 Blood Pressure Pulse Oximetry 07/20/20 23:23 07/20/20 23:44 07/21/20 00:00 Temperature Pulse Rate 75 74 Respiratory Rate Blood Pressure Pulse Oximetry 100 07/21/20 02:00 07/21/20 04:00 07/21/20 05:07 Temperature 36.1 C L Pulse Rate 71 66 80 Respiratory Rate 18 Blood Pressure 158/63 H Pulse Oximetry 99 97 07/21/20 06:00 07/21/20 08:00 07/21/20 08:43 Temperature 36.6 C Pulse Rate 77 65 81 Respiratory Rate 12 20 Blood Pressure 148/65 H Pulse Oximetry 92 07/21/20 08:46 07/21/20 08:51 07/21/20 09:17 Temperature Pulse Rate 79 84 Respiratory Rate 20 Blood Pressure Pulse Oximetry 92 Intake/Output Intake/Output: Intake & Output 07/18/20 07/19/20 07/20/20 07/21/20 23:59 23:59 23:59 23:59 Intake Total 680 1520 200 Output Total 850 1100 Balance -170 420 200 Meds/Results Medications: Active Medications Generic Name Dose Route Start Last Admin Trade Name Freq PRN Reason Stop Dose Admin Acetaminophen 650 mg 07/19/20 04:42 Acetaminophen 325 Mg Tablet PO Q4H PRN Mild Pain (1-3) or Fever Hydrocodone Bitart/Acetaminophen 1 tab 07/19/20 04:42 Hydrocodone/Acetaminophen (*Crx) 5-325 Mg Tablet PO Q4H PRN Moderate Pain (4-6) Albuterol 5 mg 07/19/20 08:00 07/21/20 08:43 Albuterol Sulfate Neb 2.5 Mg/0.5 Ml Inh INHALATION 5 mg Q6HRT SANTANA Administration Albuterol 5 mg 07/19/20 05:14 Albuterol Sulfate Neb 2.5 Mg/0.5 Ml Inh INHALATION Q4HRT PRN Shortness Of Breath Aspirin 81 mg 07/20/20 09:00 07/21/20 09:17 Aspirin 81 Mg Enteric Tablet PO 81 mg QAM SANTANA Administration Citalopram Hydrobrom
[2020-07-21] MEDS: guaiFENesin/DEXTROMETHORPHAN 10 ML UDC 5 ML PO (10:05)
--- NOTE | 2020-07-21 13:53 | PC.NURSE ---
1310- Patient is all ready to discharge and just waiting for a ride at this time.
--- NOTE | 2020-07-21 14:23 | ECHO_ITS ---
Patient Info Name: Karan Sexton Age: 64 years : 1955 Gender: Male Ht: 72 in Wt: 125 lbs BSA: 1.68 m2 HR: 68 bpm BP: 158 / 63 mmHg Heart Rhythm: Sinus Rhythm Technical Quality: Good Exam Date: 07/21/2020 7:44 AM Exam Location: [facility] Pulmonary Patient Status: Inpatient Admit Date: 07/19/2020 Staff Ordering Physician: Hudson Luo MD Small Engine Trainer: Brandon Son RDCS, RT Attending Provider: Davidson Newman MD Referring Physician: Puja ESCALONA; Exam Type: CA echo doppler color flow Study Info Indications I50.9 - Heart failure, unspecified Complete two-dimensional, color flow and Doppler transthoracic echocardiogram is performed. Strain analysis performed. History/Risk Factors Hypertension: Yes Dyslipidemia: No Congenital Heart Disease (CHD): No Peripheral Arterial Disease (PAD): No Myocardial Infarction (HI): No Chronic Lung Disease: No Obesity: No Renal Disease: No Coronary Artery Disease (CAD) No Congestive Heart Failure (CHF): No Cardiomyopathy/LV Systolic Dysfunction: No Date of Last Tobacco Use: 06/06/2019 Diabetes Mellitus: No COPD: No Tobacco Use: Current - Every Day If Any Current, Tobacco Type: Cigarettes If Current - Every Day \T\ Cigarettes, Amount: Light Tobacco Use (<10/day) Cerebrovascular Disease: No Family History: Coronary Artery Disease Deep Vein Thrombosis (DVT): None Dialysis: None Frailty Scale (CSHA): 2: Well Cardiac Arrest: No Prior Interventions Pacemaker: No PCI: No CABG: No Valve Surgery: Yes ICD: No Heart Transplant: No Summary 1. Complete two-dimensional, color flow and Doppler transthoracic echocardiogram is performed. 2. Normal left ventricular systolic function with normal ejection fraction and no ischemic wall motion abnormality. 3. Trace amount of both mitral and aortic valve regurgitation of no clinical significance. Recommendations * Smoking cessation counseling is recommended for this patient. Left Ventricle Left ventricular chamber dimension is normal. Left ventricular systolic function is normal, estimated at 60-65%. There is mild concentric increased left ventricular wall thickness. The left ventricular diastolic function is normal. Right Ventricle Right ventricular chamber dimension is normal. Left Atria Left atrial chamber dimension is normal. Right Atria Right atrial chamber dimension is normal. Aortic Valve The aortic valve is normal. There is trace aortic valve regurgitation. Pulmonic Valve The pulmonic valve is normal. Mitral Valve The mitral valve has normal leaflets. There is trace mitral valve regurgitation. Tricuspid Valve The tricuspid valve leaflets are normal. Pericardium/Pleural The pericardium appears normal. Aorta The aortic root size at the sinus of Valsalva is normal. Left Ventricular Outflow Tract Name Value Normal LVOT 2D LVOT Diameter 1.9 cm LVOT Doppler LVOT Peak Gradient 4 mmHg LVOT Mean Gradient
--- NOTE | 2020-07-23 08:02 | PM.DS ---
DS: Admitting Diagnosis Admitting Diagnosis Admitting Diagnosis: shortness of Breath DS: Discharge Diagnosis Discharge Diagnosis (1) COPD exacerbation: Code(s): J44.1 - Chronic obstructive pulmonary disease with (acute) exacerbation Status: Acute Assessment and Plan: with updraft treatments and retro steroids his respiratory status with the improved. And discharged comfortable on room air. Symbicort was added to his regime and discharge with a tapering dose of prednisone (2) Elevated troponin: Code(s): R77.8 - Other specified abnormalities of plasma proteins Status: Acute Assessment and Plan: troponin slowly fell. repeat EKG no change. The patient was anticoagulated by ER provider initially. echocardiogram revealed normal ejection fraction with no wall motion abnormalities and Cardiology felt troponin was probably troponin leak from COPD exacerbation and not acute coronary syndrome. No further intervention (3) Normocytic anemia: Code(s): D64.9 - Anemia, unspecified Status: Chronic Assessment and Plan: No signs of acute blood loss. hemoglobin just under 14 (4) HTN (hypertension): Qualifiers: Hypertension type: unspecified Qualified Code(s): I10 - Essential (primary) hypertension Code(s): I10 - Essential (primary) hypertension Status: Chronic Assessment and Plan: stable. Monitor blood pressure. Continue metoprolol. (5) Tobacco dependence: Code(s): F17.200 - Nicotine dependence, unspecified, uncomplicated Status: Chronic Assessment and Plan: Dr Newman counseled the patient regarding tobacco cessation for 4 minutes. He has verbalized his understanding and agreement. DS: Summary Hospital Course Hospital Course: date of discharge and [id number] encounter 07/21/20 patient presented to the hospital with increasing shortness of breath and chest tightness with slightly elevated troponin. Transferred here for Cardiology evaluation. Treated with steroids and updraft treatments and COPD exacerbation abated. Troponin slowly fell and Cardiology thought was supple troponin leak from COPD exacerbation and no true ischemic coronary event since echocardiogram showed normal ejection fraction with no wall motion abnormality Symbicort was added to his regime and tapering dose of steroid on discharge. Time Spent with Patient Time attestation: Total time spent providing and/or coordinating discharge services:35 minutes Exam Narrative: Exam Narrative: Condition on discharge blood pressure 140/68 pulse is 82 saturating 96% on room air afebrile lungs clear without wheezing CV regular rate and rhythm abdomen benign nontender extremities without edema up and about, taking a diet well, hemodynamically stable and ready for discharge Discharge Plan Discharge Attending physician on discharge: Vladislav Remy Consulting providers: Hudson Luo Discharging Clinician: Vladislav Remy Patient Disposition: Home, Self-Care Activity: as tolerated Diet: regular Patient Instructions: Antibiotic Form, COPD (Chronic Obstructive Pulmonary Disease) (DC), Chronic Hypertension (DC) Stand Alone Forms: General Discharge Information Follow-up/Referrals: Abhinav Nunez MD [Primary Care Provider] - 2 Weeks Discharge Medications: New budesonide-formoterol [Symbicort] 160-4.5 mcg/actuation HFA aerosol inhaler 2 puff inhalation Q12H Qty: 10.2 RF: 0 prednisone 20 mg tablet 20 mg PO DIRECTED Qty: 15 RF: 0 Continued folic acid 1 mg tablet 1 mg PO DAILY RF: 0 loratadine 10 mg tablet 10 mg PO DAILY RF: 0 metoprolol succinate 25 mg tablet extended release 24 hr 12.5 mg PO DAILY 30 Days Qty: 15 RF: 0 albuterol sulfate 90 mcg/actuation HFA aerosol inhaler 2 puff INHALATION Q4-6H PRN (Reason: Shortness Of Breath) Qty: 1 RF: 1 Spiriva Respimat 2.5 mcg/actuation mist 2
== END 2020-07-21 15:05 | disposition home or self-care (01) | DRG 192 ==
PROVIDERS: Internal Medicine Cardiovascular Disease; Admitting Provider Family Medicine; PCP Family Medicine; Visit Provider Internal Medicine
DX: J44.1 Chronic obstructive pulmonary disease with (acute) exacerbation (principal); R77.8 Other specified abnormalities of plasma proteins; D64.9 Anemia, unspecified; I10 Essential (primary) hypertension; D72.829 Elevated white blood cell count, unspecified; Z79.899 Other long term (current) drug therapy
CPT/HCPCS: 36415; 80048; 80061; 83735; 84484; 85025; 93005; 93306; 94640; 94762; 96374; 96376; A9270; G0378; G0379; J2930

== ENCOUNTER 2020-08-20 23:06 | Emergency (ER) | payer MEDICARE, OTHER, SELFPAY ==
--- NOTE | ~2020-08-20 | XR_ITS ---
EXAMINATION: XR chest 1V portable 08/20/2020 23:39 INDICATION: Shortness of breath PROCEDURE: AP portable chest COMPARISON: 07/19/2020 FINDINGS: The lungs are clear. The lungs are hyperinflated which is consistent with, but not diagnost ic of chronic obstructive pulmonary disease. There is apical pleural thickening/scarring. There are s cattered calcified granulomas. The cardiomediastinal silhouette is within normal limits. There are n o pleural effusions. There is no pneumothorax suspected. IMPRESSION: 1: NO ACUTE CARDIOPULMONARY DISEASE. Reviewed, dictated and finalized at location A. NDER OPERATOR HELPER
[2020-08-20 23:10] VITALS: O2SAT 95
[2020-08-20 23:20] VITALS: BP 166/91; PULSE 85; RESP 18; TEMP 36.7; O2SAT 95
[2020-08-20 23:27] VITALS: O2SAT 95
--- NOTE | 2020-08-20 23:29 | ED.GENADULT ---
HPI - General Adult General Chief complaint: Anxiety Stated complaint: Shortness of Breath Source: patient Mode of arrival: ambulatory Limitations: no limitations History of Present Illness HPI narrative: Karan is a 64M with COPD and frequent exacerbations that is well know to this ED that presented by EMS with shortness of breath. He has had worsening SOB, cough, and sputum production for a week. It feels like his other COPD exacerbations. No CP, N/V, near syncope/syncope, fevers or chills. Related Data Home Medications Medication Instructions Recorded Confirmed folic acid 1 mg PO DAILY 06/06/19 08/20/20 loratadine 10 mg PO DAILY 06/06/19 08/20/20 citalopram 10 mg PO DAILY 05/26/20 08/20/20 albuterol sulfate 2.5 mg CONTINUOUS NEBULIZATION PRN 06/28/20 08/20/20 PRN ffllvqpi-udy-gxnkc-vit K-lycop 1 tablet PO DAILY 08/20/20 08/20/20 [One-A-Day Men's 50 Plus] tiotropium bromide [Spiriva with 1 cap INHALATION DAILY 08/20/20 08/20/20 HandiHaler] Allergies Allergy/AdvReac Type Severity Reaction Status Date / Time No Known Allergies Allergy Verified 04/25/14 17:32 Review of Systems Constitutional: Constitutional: Reports no additional constitutional complaints, Denies chills and Denies fever(s) ENT: Reports system reviewed and no additional complaints, except as documented Cardiovascular: Cardiovascular: Reports no additional cardiovascular complaints Respiratory: Respiratory: Reports as per HPI Gastrointestinal: Gastrointestinal: Reports no additional gastrointestinal complaints Genitourinary: Genitourinary: Reports no additional male genitourinary complaints Musculoskeletal: Musculoskeletal: Reports no additional musculoskeletal complaints Integumentary/Breasts: Skin/Breast: Reports system reviewed and no additional complaints, except as docu Neurologic: Reports system reviewed and no additional complaints, except as documented Psychiatric: Psychiatric: Reports no additional psychiatric complaints [facility] Past Medical History Medical History COPD (chronic obstructive pulmonary disease) Depression HTN (hypertension) Light-headedness Vertigo Family History Family History Mother CAD (coronary artery disease) Chronic obstructive pulmonary disease Father Blood clot in vein Social History Social History Smoking packs per day: 0.5 Smoking cigarettes per day: 10.0 Years smoked: 45 Smoking pack-years: 22.50 Smoking status: Light tobacco smoker Tobacco type: cigarettes Second hand tobacco smoke exposure: No Smoking end date: 03/30/20 Alcohol intake: former Drinks per week: 18 Substance use: never Substance use type: does not use Last use: Quit drinking alcohol 18 months ago Gender identity (if verbalized by the patient): Male Spiritual care concerns: No Agree to blood products: Yes Exam Const: General: no acute distress and alert Orientation/consciousness: patient oriented x3 Limitations: No altered mental status HENMT: Head: normal to inspection Eyes: Conjunctivae: conjunctivae normal Pupils: Equal, round and reactive pupils present Neck: Neck: normal visual inspection Chest: Chest palpation & inspection: normal inspection of the chest Resp: Effort & Inspection: normal respiratory effort and labored Other: diffuse wheezing with prolonged expiratory phase. No cough present on exam. Cardio: Rate: regular rate Rhythm: regular rhythm Skin: General skin exam: normal color Rashes: no rashes Neuro: General: patient oriented x3 and moves all extremities Course Course Emergency Course: Karan was evaluated. Ordered CXR, EKG, COVID swab as well as albuterol HFA, prednisone and azithromycin. EKG showed NSR at a rate of 89, normal axis and no ST elevation/depression EXAMINATION: XR ch
--- NOTE | 2020-08-20 23:30 | ECG_ITS ---
Measurements Intervals [place] Rate: 89 P: 86 [place]: 146 QRS: 73 QRSD: 94 T: 73 QT: 367 QTc: 447 Interpretive Statements SINUS RHYTHM VOLTAGE CRITERIA FOR LVH BORDERLINE R WAVE PROGRESSION, ANTERIOR LEADS BASELINE ARTIFACT- I, II, III, AVR, AVL, AVF, V1-V6 BORDERLINE ECG Electronically Signed On 08-21-2020 7:57:07 BOTTLE HOUSE PUMPER by Brock Seymour D.O.
[2020-08-20] MEDS: predniSONE 40 MG, predniSONE 10 MG 50 MG PO (23:35)
[2020-08-20] MEDS: ALBUTEROL SULFATE (*SP) INHALER 2 PUFF INHALATION (23:35)
[2020-08-20] MEDS: AZITHROMYCIN 250 MG TABLET 500 MG PO (23:35)
[2020-08-20 23:55] LABS: SARS-CoV-2 Ag Negative (Negative)
[2020-08-21 00:03] VITALS: BP 166/78; PULSE 86; RESP 20; TEMP 36.7; O2SAT 96
== END 2020-08-21 00:16 | disposition home or self-care (01) ==
PROVIDERS: Emergency Provider Family Medicine; PCP Family Medicine
DX: J44.1 Chronic obstructive pulmonary disease with (acute) exacerbation (principal); I10 Essential (primary) hypertension; F17.200 Nicotine dependence, unspecified, uncomplicated
CPT/HCPCS: 71045; 87426; 93005; 99283; A9270; C9803; J7512

== ENCOUNTER 2020-09-03 08:23 | Emergency (ER) | payer MEDICARE, OTHER, SELFPAY ==
[2020-09-03] VITALS (14 sets, daily range): BP systolic 132–155; BP diastolic 73–87; PULSE 90–111; RESP 14–20; TEMP 36.7; O2SAT 96–100
--- NOTE | ~2020-09-03 | XR_ITS ---
EXAMINATION: XR chest 2V DATE: 09/03/2020 09:35 INDICATION: Chest pressure and shortness of breath TECHNIQUE: PA and lateral views of the chest are obtained. COMPARISON: 08/20/2020 FINDINGS: The lungs are hyperinflated but free of acute opacities. Calcified pulmonary nodules and ca lcified right hilar and paratracheal lymph nodes are consistent with old granulomatous disease. Ther e is no pleural effusion or pneumothorax. The cardiomediastinal silhouette is normal. There is modera te thoracic spondylosis. IMPRESSION: 1. Hyperinflation without acute cardiopulmonary abnormality. Reviewed, dictated and finalized at location A. DING INSPECTION ENGINEER
--- NOTE | 2020-09-03 08:26 | ECG_ITS ---
Measurements Intervals [place] Rate: 96 P: 88 [place]: 153 QRS: 77 QRSD: 79 T: 73 QT: 328 QTc: 414 Interpretive Statements SINUS RHYTHM RIGHT ATRIAL ENLARGEMENT POSSIBLE LEFT ATRIAL ENLARGEMENT CANNOT RULE OUT SEPTAL INFARCT, AGE INDETERMINATE BASELINE ARTIFACT- I, II, III, AVR, AVL, AVF, V1-V2 ABNORMAL ECG Electronically Signed On 09-03-2020 9:30:19 NEWSPAPER COPY EDITOR by Brock Seymour D.O.
--- NOTE | 2020-09-03 08:45 | ED.SOB ---
HPI - SOB/Dyspnea General Chief Complaint: Shortness of Breath/Dyspnea Stated Complaint: ambulance Time Seen by Provider: 09/03/20 08:25 Source: patient Mode of arrival: EMS Limitations: no limitations History of Present Illness HPI Narrative: 64-year-old man with history of asthma and COPD brought by EMS to the emergency department today with a complaint of increased cough, shortness of breath and chest pressure. Patient states it started last day or 2. His cough is productive of clear sputum and he denies any fever, nausea, vomiting, lightheadedness, sweats, diarrhea, and sick contacts. States the furnace in his home when out and he has been sleeping in a 50 degree room. EMS states that he has had his stove and piece heater going to help warm his house. His primary care doctor treated him with azithromycin and oral steroids on August 21.He currently smokes but states he does not inhale. MD elicited complaint: shortness of breath and cough Pertinent past history: COPD and asthma Onset (ago): day(s) (1-2) Context: CO exposure (possible) Timing: constant and progressively worsening Severity: moderate Exacerbating factors: lying flat and coughing Relieving factors: nothing Known history of: COPD and asthma Associated symptoms: chest pain ((pressure)) Treatment prior to arrival: oxygen and bronchodilator Related Data Home oxygen amount: none Home Medications Medication Instructions Recorded Confirmed folic acid 1 mg PO DAILY 06/06/19 09/03/20 loratadine 10 mg PO DAILY 06/06/19 09/03/20 citalopram 10 mg PO DAILY 05/26/20 09/03/20 albuterol sulfate 2.5 mg CONTINUOUS NEBULIZATION PRN 06/28/20 09/03/20 PRN duncrddw-bhd-pnccn-vit K-lycop 1 tablet PO DAILY 08/20/20 09/03/20 [One-A-Day Men's 50 Plus] tiotropium bromide [Spiriva with 1 cap INHALATION DAILY 08/20/20 09/03/20 HandiHaler] Allergies Allergy/AdvReac Type Severity Reaction Status Date / Time No Known Allergies Allergy Verified 08/26/20 07:49 Review of Systems Constitutional: Constitutional: Reports chills, Denies fever(s) and Denies weakness Eyes: Eyes: Denies change in vision and Denies photophobia ENT: Denies nasal congestion and Denies sore throat Cardiovascular: Cardiovascular: Reports chest pain (pressure) and Denies radiating jaw, neck or arm pain Respiratory: Respiratory: Reports cough, Reports dyspnea and Reports wheezing Gastrointestinal: Gastrointestinal: Denies abdominal pain, Denies diarrhea, Denies nausea and Denies vomiting Genitourinary: Genitourinary: Denies dysuria and Denies urinary frequency Musculoskeletal: Musculoskeletal: Denies arthralgias and Denies joint swelling Integumentary/Breasts: Skin/Breast: Denies pruritus, Denies erythema and Denies rash Neurologic: Denies vertigo, Denies dizziness and Denies syncope Hematologic/Lymphatic: Hematologic/Lymphatic: Denies easy bleeding and Denies easy bruising Allergic/Immunologic: Allergic/Immunologic: Denies lip swelling and Denies throat swelling PMFSH Past Medical History Medical History COPD (chronic obstructive pulmonary disease) Depression HTN (hypertension) Light-headedness Vertigo Family History Family History Mother CAD (coronary artery disease) Chronic obstructive pulmonary disease Father Blood clot in vein Social History Social History Smoking packs per day: 0.5 Smoking cigarettes per day: 10.0 Years smoked: 45 Smoking pack-years: 22.50 Smoking status: Current every day smoker Tobacco type: cigarettes Second hand tobacco smoke exposure: No Smoking end date: 03/30/20 Alcohol intake: former Drinks per week: 18 Substance use: never Substance use type: does not use Last use: Quit drinking alcohol 18 months ago Gender identity (if verbalized by the patient): Male Sp
[2020-09-03] MEDS: ALBUTEROL SULFATE (*SP) INHALER 4 PUFF INHALATION (08:50)
[2020-09-03 08:56] LABS: Base Excess ABG -1.4 mmol/L (0-2); HCO3 ABG 22.3 mmol/L (23-29); Methemoglobin ABG 0.3 % (0-1.5); Oxygen Saturation ABG 98.2 % (95-97); Oxyhemoglobin 97.9 % (94-100); PCO2 ABG 34.3 mmHg (35-45); PO2 ABG 116.5 mmHg (75-85); Reduced Hemoglobin 1.8 % (0-1.5); Total Hemoglobin 14.4 g/dL; pH ABG 7.43 (7.35-7.45)
[2020-09-03 08:57] LABS: Site Drawn RIGHT RADIAL
[2020-09-03 08:58] LABS: Device NASAL CANNULA; Hemoglobin 13.9 g/dL (12.4-15.3); Mean Corpuscular HGB Conc 33.9 g/dL (32.0-36.0); Mean Corpuscular Hemoglobin 30.5 pg (27.0-31.0); Mean Corpuscular Volume 89.9 fL (78.0-102.0); Modified Allen's Test Pass; Platelet Count Result 329 K/mm3 (150-420); Red Blood Count 4.56 M/mm3 (4.70-6.10); Red Cell Distribution Width 13.1 % (11.6-14.4)
[2020-09-03] MEDS: methylPREDNISolone SOD SUCC 40 MG VIAL 80 MG IV PUSH (09:00)
[2020-09-03 09:12] LABS: Partial Thromboplastin Time 34.7 SEC (23.90-30.70); Prothrombin Time 10.6 Seconds (9.50-12.10)
[2020-09-03 09:17] LABS: BNP 34.7 pg/mL (0-100)
[2020-09-03 09:18] LABS: Alanine Aminotransferase 58 U/L (16-63); Albumin Level 3.5 g/dL (3.4-5.0); Alkaline Phosphatase 272 U/L (46-116); Anion Gap 12 mmol/L (8-16); Aspartate Amino Transferase 25 U/L (15-37); Bilirubin,Total 0.4 mg/dL (0.00-1.00); Blood Urea Nitrogen 10 mg/dL (7-18); Carbon Dioxide 26 mmol/L (21-32); Chloride 102 mmol/L (98-108); Estimated CRCL calculation 50 ml/min; Estimated Glomerular Filt Rate > 60; Glucose 104 mg/dL (70-99); Osmolality Calculated 289 mOsm/kg (285-295); Potassium 3.9 mmol/L (3.5-5.1); Sodium 140 mmol/L (136-145); Total Protein 7.1 g/dL (6.4-8.2); Troponin I 7.3 ng/L (0.00-60.4)
[2020-09-03 09:23] LABS: Influenza Control Valid (Valid); SARS-CoV-2 Ag Negative (Negative)
[2020-09-03 09:27] LABS: Band Neutrophils Percent 0 % (0-6); Eosinophils Absolute Manual 2.28 K/mm3 (0.02-0.5); Eosinophils Percent Manual 19 % (1-6); Lymphocytes Absolute Manual 1.92 K/mm3 (1.1-4.5); Lymphocytes Percent Manual 16 % (18-44); Monocytes Absolute Manual 0.36 K/mm3 (0.1-0.90); Monocytes Percent Manual 3 % (3-9); Neutrophils Absolute Manual 7.44 K/mm3 (1.3-6.7); Neutrophils Percent Manual 62 % (46-73); Platelet Estimate Adequate (Adequate); Total Cells Counted 100
== END 2020-09-03 10:06 | disposition home or self-care (01) ==
PROVIDERS: Emergency Provider Emergency Medicine; PCP Family Medicine
DX: J44.9 Chronic obstructive pulmonary disease, unspecified (principal); I10 Essential (primary) hypertension; F17.200 Nicotine dependence, unspecified, uncomplicated; Z20.822 Contact with and (suspected) exposure to COVID-19
CPT/HCPCS: 36600; 71046; 80053; 82375; 82805; 83050; 83880; 84484; 85025; 85610; 85730; 87426; 87804; 93005; 94640; 96374; 99284; 99285; A9270; C9803; J2920

== ENCOUNTER 2020-09-23 13:06 | Emergency (ER) | payer MEDICARE, OTHER, SELFPAY ==
[2020-09-23] VITALS (21 sets, daily range): BP systolic 139–173; BP diastolic 73–92; PULSE 82–93; RESP 15–22; TEMP 37.1; O2SAT 93–98
--- NOTE | ~2020-09-23 | XR_ITS ---
EXAMINATION: XR chest 1V portable DATE: 09/23/2020 14:30 INDICATION: Chest pressure. Dyspnea. TECHNIQUE: A single frontal view of the chest was obtained. COMPARISON: Chest 2 views 09/03/2020, chest CT 07/19/2020 FINDINGS: The lungs are hyperexpanded with lucencies, consistent with emphysema. There is stable mild scarring at the lung apices. Scattered calcified pulmonary nodules and calcified hilar and mediastin al lymph nodes are consistent with old granulomatous disease. No pleural effusion or pneumothorax. Th e heart size is normal. There are old healed left rib fractures. IMPRESSION: 1. Emphysema with stable mild scarring at the lung apices. Reviewed, dictated and finalized at location A. ERENCE ASSISTANT
--- NOTE | 2020-09-23 13:19 | ECG_ITS ---
Measurements Intervals [place] Rate: 84 P: 83 [place]: 150 QRS: 79 QRSD: 89 T: 85 QT: 352 QTc: 416 Interpretive Statements SINUS RHYTHM POSSIBLE LEFT ATRIAL ENLARGEMENT BASELINE ARTIFACT- I, II, III, AVR, AVL, AVF, V5-V6 BORDERLINE ECG Electronically Signed On 09-23-2020 13:55:44 SOAKING TANK WORKER by Brock Seymour D.O.
--- NOTE | 2020-09-23 13:53 | ED.GENADULT ---
HPI - General Adult General Chief complaint: Shortness of Breath/Dyspnea Stated complaint: DIFFICULTY BREATHING Time Seen by Provider: 09/23/20 13:20 Source: patient History of Present Illness HPI narrative: Patient is a 64 y/o male complaining of moderate SOB since this morning. He states that inhaler and Nebulizer helps slightly. He has some cough with clear sputum and right sided chest pain. He has no fever. Related Data Home Medications Medication Instructions Recorded Confirmed folic acid 1 mg PO DAILY 06/06/19 09/19/20 bxtvurnj-dfx-imsmy-vit K-lycop 1 tablet PO DAILY 08/20/20 09/19/20 [One-A-Day Men's 50 Plus] tiotropium bromide [Spiriva with 1 cap INHALATION DAILY 08/20/20 09/19/20 HandiHaler] Allergies Allergy/AdvReac Type Severity Reaction Status Date / Time No Known Allergies Allergy Verified 09/23/20 13:15 Review of Systems Constitutional: Constitutional: Denies chills, Denies fever(s), Denies headache(s) and Denies weakness Eyes: Eyes: Denies blurry vision ENT: Denies headache(s) and Denies neck pain Cardiovascular: Cardiovascular: Reports chest pain and Reports dyspnea Respiratory: Respiratory: Reports cough and Reports dyspnea Gastrointestinal: Gastrointestinal: Denies abdominal pain, Denies diarrhea, Denies nausea and Denies vomiting Genitourinary: Genitourinary: Denies hematuria and Denies dysuria Musculoskeletal: Musculoskeletal: Denies back pain and Denies neck pain Neurologic: Denies headache(s) and Denies weakness [facility] Past Medical History Medical History COPD (chronic obstructive pulmonary disease) Depression HTN (hypertension) Light-headedness Tobacco dependence Vertigo Family History Family History Mother CAD (coronary artery disease) Chronic obstructive pulmonary disease Father Blood clot in vein Social History Social History Smoking packs per day: 0.5 Smoking cigarettes per day: 10.0 Years smoked: 45 Smoking pack-years: 22.50 Smoking status: Current every day smoker Tobacco type: cigarettes Second hand tobacco smoke exposure: No Smoking end date: 03/30/20 Alcohol intake: former Drinks per week: 18 Substance use: never Substance use type: does not use Last use: Quit drinking alcohol 18 months ago Gender identity (if verbalized by the patient): Male Spiritual care concerns: No Agree to blood products: Yes Exam Const: General: no acute distress and well developed Orientation/consciousness: oriented to person, oriented to place, oriented to time and patient oriented x3 HENMT: Head: normocephalic Ears: external ears normal General nose exam: Normal external nose present Eyes: General: appearance normal, both eyes and all related structures Conjunctivae: conjunctivae normal Neck: Neck: normal visual inspection and full ROM Chest: Chest palpation & inspection: normal inspection of the chest and no tenderness Resp: Effort & Inspection: normal respiratory effort Auscultation: clear to auscultation bilaterally Cardio: Rate: regular rate Rhythm: regular rhythm GI: GI Palp: No abdominal tenderness and Yes Soft to palpation Skin: General skin exam: normal color and turgor normal Neuro: General: oriented to person, oriented to place, oriented to time and patient oriented x3 Cognition (Neuro): normal cognition Extrem: General: normal to inspection, full ROM and no pedal edema Psych: Appearance: grossly normal Mental Status: mental status grossly normal Affect: normal affect Course Vital Signs Vital signs: Vital Signs Temperature 37.1 C 09/23/20 13:10 Pulse Rate 86 09/23/20 13:10 Respiratory Rate 18 09/23/20 13:10 Blood Pressure 173/77 H 09/23/20 13:10 Pulse Oximetry 98 09/23/20 13:10 Temperature 37.1 C 09/23/20 13:10 Pulse Rate 90
[2020-09-23] MEDS: ALBUTEROL SULFATE (*SP) AEROSOL 1 PUFF 2 PUFF INHALATION (14:09)
[2020-09-23] MEDS: methylPREDNISolone SOD SUCC 125 MG VIAL IV PUSH (14:13)
[2020-09-23 14:14] LABS: Basophils Absolute Auto 0.1 K/mm3 (0.0-0.1); Eosinophils Percent Auto 10.2 % (0-4.4); Hematocrit 39.7 % (42.0-52.0); Hemoglobin 13.4 g/dL (14.0-18.0); Immature Granulocyte Absolute 0.02 K/mm3 (0.00-0.031); Immature Granulocyte Percent A 0.2 % (0-0.5); Lymphocytes Percent Auto 19.1 % (18.3-44.2); Mean Corpuscular HGB Conc 33.8 g/dl (32-36); Mean Corpuscular Hemoglobin 30.7 pg (26-34); Mean Corpuscular Volume 90.8 fl (80-100); Monocytes Absolute Auto 0.6 K/mm3 (0.1-0.6); Monocytes Percent Auto 6.8 % (2.6-8.5); Neutrophils Absolute Auto 5.9 K/mm3 (1.3-6.7); Neutrophils Percent Auto 62.7 % (45.5-73.1); Platelet Count Result 283 k/mm3 (150-375); Red Blood Count 4.37 M/mm3 (4.6-6.20); Red Cell Distribution Width 13.3 % (11.5-14.5); White Blood Count 9.4 K/mm3 (4.5-10.0)
[2020-09-23 14:24] LABS: Alanine Aminotransferase 17 U/L (4-50); Alkaline Phosphatase 108 U/L (38-126); Anion Gap 3 mmol/L (8-16); Aspartate Amino Transferase 25 U/L (17-59); Bilirubin,Total 0.4 mg/dL (0.2-1.3); Blood Urea Nitrogen 10 mg/dL (9-20); Carbon Dioxide 30 mmol/L (22-30); Chloride 105 mmol/L (98-107); Estimated CRCL calculation 58 ml/min; Estimated Glomerular Filt Rate > 60; Glucose 98 mg/dL (75-110); Sodium 138 mmol/L (137-145)
[2020-09-23 14:25] LABS: D Dimer 0.28 ug/mL (<0.48)
[2020-09-23 14:34] LABS: NT Pro B Type Natriuretic Pept 68 PG/ML (5-100); Troponin I < 0.012 ng/mL (0.000-0.034)
--- NOTE | 2020-09-23 14:46 | PC.NURSE ---
Pt c/o feeling worsening sob. spo2 95-96% on room air. Dr. Linares made aware. ABG's ordered.
--- NOTE | 2020-09-23 14:56 | PC.NURSE ---
RT at bedside for albuterol inhaler and ABG's.
[2020-09-23 15:30] LABS: Alveolar/Arterial O2 Gradient 39.8 mmHg; Base Excess ABG -3.6 mEq/l (+/-2.0); Carboxyhemoglobin 0.7 % THb (0-2.0); Device ROOM AIR; Fractional Inspired Oxygen 21 %; Methemoglobin ABG 0.3 %THb (0-1.5); Modified Allen's Test Pass; Oxygen Content ABG 18.7 %vol (16.0-22.0); Oxyhemoglobin 94.2 % THb (90.0-100.0); PCO2 ABG 28.1 mmHg (35.0-45.0); PO2 ABG 76.3 mmHg (80.0-100.0); PO2 FiO2 Ratio Arterial Blood 3.63 %; Reduced Hemoglobin 4.8 %THb (0-5.0); Site Drawn LEFT RADIAL; Total Hemoglobin 14.1 g/dL (12.0-18.0); pH ABG 7.448 (7.350-7.450)
--- NOTE | 2020-09-23 15:58 | PC.NURSE ---
Pt states is breathing easier after taking two puffs of his inhaler.
[2020-09-23 17:39] LABS: Troponin I < 0.012 ng/mL (0.000-0.034)
== END 2020-09-23 18:35 | disposition home or self-care (01) ==
PROVIDERS: Emergency Provider Emergency Medicine; PCP Family Medicine
DX: J44.1 Chronic obstructive pulmonary disease with (acute) exacerbation (principal); I10 Essential (primary) hypertension; F17.210 Nicotine dependence, cigarettes, uncomplicated; R94.31 Abnormal electrocardiogram [ECG] [EKG]
CPT/HCPCS: 36415; 36600; 71045; 80053; 82375; 82805; 83050; 83880; 84484; 85025; 85380; 93005; 96374; 99284; A9270; J2930

== ENCOUNTER 2020-10-17 02:37 | Emergency (ER) | payer MEDICARE, OTHER, SELFPAY ==
--- NOTE | ~2020-10-17 | XR_ITS ---
EXAMINATION: XR chest 2V DATE: 10/17/2020 03:31 INDICATION: COPD. Dyspnea. TECHNIQUE: PA and lateral views of the chest were obtained. COMPARISON: Chest radiograph dated 09/23/2020 FINDINGS: Hyperexpansion of lungs with increased lucency consistent with emphysema better appreciated on CT dandre ed 07/19/2020. Stable appearance of biapical pleural-parenchymal scarring. Scattered bilateral calcifie d pulmonary nodules and calcified bilateral hilar and mediastinal lymph nodes consistent with old gra nulomatous disease. The cardiomediastinal silhouette is normal. Moderate thoracic spondylosis. IMPRESSION: 1. Emphysema with biapical pleural-parenchymal scarring. No acute cardiopulmonary disease. Reviewed, dictated and finalized at location A. IMPRESSION: 1. Emphysema with biapical pleural-parenchymal scarring. No acute cardiopulmona ry disease.
[2020-10-17 02:38] VITALS: BP 130/73; PULSE 88; RESP 20; TEMP 37.1; O2SAT 97
--- NOTE | 2020-10-17 02:57 | ECG_ITS ---
Measurements Intervals [place] Rate: 89 P: 88 [place]: 162 QRS: 78 QRSD: 94 T: 76 QT: 347 QTc: 423 Interpretive Statements SINUS RHYTHM BORDERLINE R WAVE PROGRESSION, ANTERIOR LEADS PEAKED T WAVES- CONSIDER HYPERKALEMIA OR ISCHEMIA BASELINE ARTIFACT- I, II, III, AVR, AVL, AVF, V1-V6 ABNORMAL ECG Electronically Signed On 10-17-2020 8:14:19 CDT by Brock Seymour D.O.
[2020-10-17] MEDS: methylPREDNISolone SOD SUCC 125 MG VIAL IV PUSH (03:14)
[2020-10-17] MEDS: IPRATROPIUM 0.5 MG/ALBUTEROL SULFATE 2.5 MG AMPUL.NEB 3 ML INHALATION (03:14)
[2020-10-17 03:17] VITALS: PULSE 88; RESP 20; O2SAT 96
[2020-10-17 03:20] LABS: Base Excess ABG -0.9 mmol/L (0-2); HCO3 ABG 23.2 mmol/L (23-29); Oxygen Content ABG 19.1 %vol (16.0-22.0); Oxygen Saturation ABG 96.5 % (95-97); Oxyhemoglobin 96.1 % (94-100); PCO2 ABG 36.7 mmHg (35-45); PO2 ABG 84.2 mmHg (75-85); Total Hemoglobin 14.1 g/dL; pH ABG 7.42 (7.35-7.45)
[2020-10-17 03:26] LABS: Hemoglobin 13.6 g/dL (12.4-15.3); Mean Corpuscular HGB Conc 33.2 g/dL (32.0-36.0); Mean Corpuscular Hemoglobin 30.2 pg (27.0-31.0); Mean Corpuscular Volume 90.9 fL (78.0-102.0); Mean Platelet Volume 9.1 fl (8.7-11.0); Platelet Count Result 284 K/mm3 (150-420); Red Blood Count 4.51 M/mm3 (4.70-6.10); Red Cell Distribution Width 13.2 % (11.6-14.4); White Blood Count 10.9 K/mm3 (4.8-10.8)
[2020-10-17 03:30] VITALS: PULSE 88
[2020-10-17 03:32] LABS: Device ROOM AIR; Modified Allen's Test Pass; Site Drawn RIGHT RADIAL
[2020-10-17 03:38] LABS: D Dimer 0.38 mg/L (0.19-0.50); Partial Thromboplastin Time 31.3 SEC (23.90-30.70); Prothrombin Time 10.7 Seconds (9.50-12.10)
[2020-10-17 03:42] LABS: Alanine Aminotransferase 32 U/L (16-63); Albumin Level 3.5 g/dL (3.4-5.0); Alkaline Phosphatase 91 U/L (46-116); Anion Gap 7 mmol/L (8-16); Aspartate Amino Transferase 22 U/L (15-37); Bilirubin,Total 0.6 mg/dL (0.00-1.00); Blood Urea Nitrogen 16 mg/dL (7-18); Calcium 8.6 mg/dL (8.5-10.1); Carbon Dioxide 28 mmol/L (21-32); Chloride 102 mmol/L (98-108); Estimated CRCL calculation 43 ml/min; Estimated Glomerular Filt Rate 58; Glucose 98 mg/dL (70-99); Osmolality Calculated 285 mOsm/kg (285-295); Sodium 137 mmol/L (136-145); Total Protein 7.2 g/dL (6.4-8.2); Troponin I 5.1 ng/L (0.00-60.4)
[2020-10-17 03:43] LABS: BNP 26.4 pg/mL (0-100)
[2020-10-17 03:44] LABS: Lactic Acid Reflex 2.3 mmol/L (0.4-2.0)
[2020-10-17 03:55] VITALS: PULSE 80; RESP 20; O2SAT 94
[2020-10-17 03:56] VITALS: BP 136/71; PULSE 80; RESP 20; O2SAT 94
[2020-10-17 04:04] LABS: Eosinophils Absolute Manual 1.19 K/mm3 (0.02-0.5); Eosinophils Percent Manual 11 % (1-6); Lymphocytes Absolute Manual 2.94 K/mm3 (1.1-4.5); Lymphocytes Percent Manual 27 % (18-44); Monocytes Absolute Manual 0.32 K/mm3 (0.1-0.90); Monocytes Percent Manual 3 % (3-9); Neutrophils Percent Manual 59 % (46-73); Platelet Estimate Adequate (Adequate); Total Cells Counted 100
--- NOTE | 2020-10-17 04:35 | ED.SOB ---
HPI - SOB/Dyspnea General Chief Complaint: Shortness of Breath/Dyspnea Stated Complaint: Shortness of Breath Source: patient History of Present Illness HPI Narrative: is a 64-year-old gentleman that has a history of COPD that presents with shortness of breath no cough no sputum production with no fever chills no nausea vomiting does have some audible wheezes with some chest tightness with no abdominal pain. patient tried nebulizer and inhalers that he had at home with minimal relief. MD elicited complaint: shortness of breath Pertinent past history: COPD Onset (ago): hour(s) Severity: moderate Exacerbating factors: smoke Known history of: COPD Associated symptoms: denies other symptoms Related Data Home Medications Medication Instructions Recorded Confirmed folic acid 1 mg PO DAILY 06/06/19 10/17/20 gjrcozef-wzj-iwkut-vit K-lycop 1 tablet PO DAILY 08/20/20 10/17/20 [One-A-Day Men's 50 Plus] tiotropium bromide [Spiriva with 1 cap INHALATION DAILY 08/20/20 10/17/20 HandiHaler] Allergies Allergy/AdvReac Type Severity Reaction Status Date / Time No Known Allergies Allergy Verified 09/23/20 13:15 Review of Systems Review of Systems: All systems reviewed & are unremarkable except as noted in HPI and below PMFSH Past Medical History Medical History COPD (chronic obstructive pulmonary disease) Depression HTN (hypertension) Light-headedness Tobacco dependence Vertigo Family History Family History Mother CAD (coronary artery disease) Chronic obstructive pulmonary disease Father Blood clot in vein Social History Social History Smoking packs per day: 0.5 Smoking cigarettes per day: 10.0 Years smoked: 45 Smoking pack-years: 22.50 Smoking status: Current every day smoker Tobacco type: cigarettes Second hand tobacco smoke exposure: No Smoking end date: 03/30/20 Alcohol intake: former Drinks per week: 18 Substance use: never Substance use type: does not use Last use: Quit drinking alcohol 18 months ago Gender identity (if verbalized by the patient): Male Spiritual care concerns: No Agree to blood products: Yes Exam Const: General: no acute distress Orientation/consciousness: patient oriented x3 HENMT: Head: normal to inspection Eyes: Conjunctivae: conjunctivae normal Pupils: Equal, round and reactive pupils present Neck: Neck: normal visual inspection, no lymphadenopathy and no meningeal signs Chest: Chest palpation & inspection: normal inspection of the chest Resp: Effort & Inspection: normal respiratory effort Auscultation: wheezes and diminished lung sounds Cardio: Rate: regular rate Rhythm: regular rhythm GI: GI Palp: Yes Soft to palpation Percussion: Yes normal to percussion : Testes: Testes normal Back/Spine/Pelvis: Back: no CVA tenderness Skin: General skin exam: normal color Rashes: no rashes Neuro: General: patient oriented x3 and moves all extremities Extrem: General: normal to inspection and no pedal edema Psych: Mental Status: mental status grossly normal Affect: normal affect Course Course Emergency Course: Patient received DuoNebs and IV Solu-Medrol so after reassessment patient is breathing much easier lungs are much clear with no wheezes. Vital Signs Vital signs: Vital Signs Temperature 37.1 C 10/17/20 02:38 Pulse Rate 88 10/17/20 02:38 Respiratory Rate 20 10/17/20 02:38 Blood Pressure 130/73 10/17/20 02:38 Pulse Oximetry 97 10/17/20 02:38 Temperature 37.1 C 10/17/20 02:38 Pulse Rate 80 10/17/20 03:56 Respiratory Rate 20 10/17/20 03:56 Blood Pressure 136/71 10/17/20 03:56 Pulse Oximetry 94 10/17/20 03:56 MDM - SOB/Dyspnea Lab Data Result diagrams: 10/17/20 03:17 10/17/20 03:17 Labs:
[2020-10-17 04:43] VITALS: BP 136/73; PULSE 87; RESP 20; TEMP 36.8; O2SAT 94
[2020-10-17 06:22] LABS: Reflex Lactic Acid Yes or No Add Lactic
== END 2020-10-17 05:15 | disposition home or self-care (01) ==
PROVIDERS: Emergency Provider Emergency Medicine; PCP Family Medicine
DX: J44.1 Chronic obstructive pulmonary disease with (acute) exacerbation (principal); I10 Essential (primary) hypertension; F17.200 Nicotine dependence, unspecified, uncomplicated
CPT/HCPCS: 36415; 36600; 71046; 80053; 82805; 83605; 83735; 83880; 84484; 85025; 85380; 85610; 85730; 93005; 94640; 96374; 99283; 99284; J2930

== ENCOUNTER 2020-10-31 07:41 | Emergency (ER) | payer MEDICARE, OTHER, SELFPAY ==
--- NOTE | ~2020-10-31 | XR_ITS ---
EXAMINATION: XR chest 2V DATE: 10/31/2020 08:40 INDICATION: Shortness of breath and cough TECHNIQUE: PA and lateral views of the chest are obtained. COMPARISON: 10/17/2020 FINDINGS: The lungs are hyperinflated but free of acute opacities. Calcified pulmonary nodules are co nsistent with old granulomatous disease. There is scarring in the lung apices. There is no pleural ef fusion or pneumothorax. The cardiomediastinal silhouette is normal. There is moderate thoracic spondy losis. IMPRESSION: 1. Hyperinflation without acute cardiopulmonary abnormality. Reviewed, dictated and finalized at location B.
[2020-10-31 07:45] VITALS: BP 141/76; PULSE 97; RESP 20; TEMP 36.9; O2SAT 95
--- NOTE | 2020-10-31 08:00 | ED.SOB ---
HPI - SOB/Dyspnea General Chief Complaint: Shortness of Breath/Dyspnea Stated Complaint: AMBULANCE Source: patient, EMS and RN notes reviewed Mode of arrival: ambulatory Limitations: no limitations History of Present Illness MD elicited complaint: shortness of breath Pertinent past history: COPD Onset (ago): hour(s) (2) Timing: intermittent Severity: moderate Exacerbating factors: coughing and smoke Relieving factors: nothing Known history of: COPD Associated symptoms: denies other symptoms Treatment prior to arrival: none Related Data Home Medications Medication Instructions Recorded Confirmed folic acid 1 mg PO DAILY 06/06/19 10/31/20 tiotropium bromide [Spiriva with 1 cap INHALATION DAILY 08/20/20 10/31/20 HandiHaler] Allergies Allergy/AdvReac Type Severity Reaction Status Date / Time No Known Allergies Allergy Verified 10/30/20 09:27 Review of Systems Review of Systems: All systems reviewed & are unremarkable except as noted in HPI and below PMFSH Past Medical History Medical History COPD (chronic obstructive pulmonary disease) Depression HTN (hypertension) Light-headedness Tobacco dependence Vertigo Family History Family History Mother CAD (coronary artery disease) Chronic obstructive pulmonary disease Father Blood clot in vein Social History Social History Smoking packs per day: 0.5 Smoking cigarettes per day: 10.0 Years smoked: 45 Smoking pack-years: 22.50 Smoking status: Current every day smoker Tobacco type: cigarettes Second hand tobacco smoke exposure: No Smoking end date: 03/30/20 Alcohol intake: former Drinks per week: 18 Substance use: never Substance use type: does not use Last use: Quit drinking alcohol 18 months ago Gender identity (if verbalized by the patient): Male Spiritual care concerns: No Agree to blood products: Yes Exam Const: General: healthy appearing, no acute distress and alert Nutritional Appearance: thin Orientation/consciousness: patient oriented x3 HENMT: Head: normal to inspection Ears: external ears normal Mouth: Yes moist mucous membranes Eyes: Conjunctivae: conjunctivae normal Pupils: Equal, round and reactive pupils present EOM: EOMs intact bilaterally Neck: Neck: normal visual inspection and no meningeal signs Resp: Effort & Inspection: tachypneic Auscultation: no crackles, no rhonchi and wheezes expiratory wheezes and throughout Cardio: Rate: regular rate Rhythm: regular rhythm GI: GI Palp: Yes Soft to palpation and No Tenderness to palpation present (GI) Auscultation: normal bowel sounds Back/Spine/Pelvis: Cervical Spine: cervical ROM normal Thoracic/Lumbar Spine: thoraco-lumbar ROM normal Skin: General skin exam: normal color Rashes: no rashes Neuro: General: patient oriented x3, moves all extremities, no meningeal signs and no focal motor deficits Speech: normal speech Gait exam (Neuro): Normal gait present Extrem: General: normal to inspection and no clubbing, cyanosis or edema Psych: Mental Status: mental status grossly normal Affect: normal affect Attitude: cooperative Thought content: Yes Normal thought content present Course Vital Signs Vital signs: Vital Signs Temperature 36.9 C 10/31/20 07:45 Pulse Rate 97 10/31/20 07:45 Respiratory Rate 20 10/31/20 07:45 Blood Pressure 141/76 H 10/31/20 07:45 Pulse Oximetry 95 10/31/20 07:45 Temperature 36.9 C 10/31/20 07:45 Pulse Rate 97 10/31/20 07:45 Respiratory Rate 20 10/31/20 07:45 Blood Pressure 141/76 H 10/31/20 07:45 Pulse Oximetry 95 10/31/20 07:45 MDM - SOB/Dyspnea Lab Data Attestation: I reviewed the patient's lab results. Discharge Plan Discharge Clinical Impression: COPD (chronic obstructive pulmonary disease) Qualifiers:
[2020-10-31] MEDS: methylPREDNISolone SOD SUCC 125 MG VIAL IM (08:12)
[2020-10-31 08:33] LABS: Basophils Absolute Auto 0.09 K/mm3 (0.00-0.10); Basophils Percent Auto 0.7 % (0.0-1.0); Eosinophils Absolute Auto 1.13 K/mm3 (0.02-0.50); Eosinophils Percent Auto 9.3 % (1.0-6.0); Hematocrit 41.4 % (37.0-46.0); Hemoglobin 13.9 g/dL (12.4-15.3); Immature Granulocyte Absolute 0.05 K/mm3 (0.00-0.00); Immature Granulocyte Percent A 0.4 % (0.0-0.0); Lymphocytes Absolute Auto 1.87 K/mm3 (1.10-4.50); Lymphocytes Percent Auto 15.4 % (18.0-42.0); Mean Corpuscular HGB Conc 33.6 g/dL (32.0-36.0); Mean Corpuscular Hemoglobin 30.5 pg (27.0-31.0); Mean Platelet Volume 8.7 fl (8.7-11.0); Monocytes Absolute Auto 0.61 K/mm3 (0.10-0.90); Neutrophils Absolute Auto 8.4 K/mm3 (1.7-7.2); Neutrophils Percent Auto 69.2 % (50.0-70.0); Platelet Count Result 319 K/mm3 (150-420); Red Blood Count 4.55 M/mm3 (4.70-6.10); Red Cell Distribution Width 13.5 % (11.6-14.4); White Blood Count 12.2 K/mm3 (4.8-10.8)
[2020-10-31 08:45] VITALS: PULSE 85; RESP 16; O2SAT 100
[2020-10-31] MEDS: IPRATROPIUM 0.5 MG/ALBUTEROL SULFATE 2.5 MG AMPUL.NEB 3 ML INHALATION (08:46)
[2020-10-31 08:48] LABS: Alanine Aminotransferase 28 U/L (16-63); Albumin Level 3.7 g/dL (3.4-5.0); Alkaline Phosphatase 84 U/L (46-116); Anion Gap 8 mmol/L (8-16); Aspartate Amino Transferase 19 U/L (15-37); Bilirubin,Total 0.6 mg/dL (0.00-1.00); Blood Urea Nitrogen 12 mg/dL (7-18); Carbon Dioxide 29 mmol/L (21-32); Chloride 103 mmol/L (98-108); Estimated CRCL calculation 42 ml/min; Estimated Glomerular Filt Rate 57; Glucose 111 mg/dL (70-99); Osmolality Calculated 290 mOsm/kg (285-295); Potassium 3.7 mmol/L (3.5-5.1); Sodium 140 mmol/L (136-145); Total Protein 7.4 g/dL (6.4-8.2)
[2020-10-31 08:57] VITALS: PULSE 86; RESP 16; O2SAT 100
[2020-10-31 09:25] VITALS: BP 133/75; PULSE 90; RESP 20; O2SAT 97
== END 2020-10-31 09:25 | disposition home or self-care (01) ==
LOC: CHSED 07:43
PROVIDERS: Emergency Provider Emergency Medicine; PCP Family Medicine
DX: J43.9 Emphysema, unspecified (principal); I10 Essential (primary) hypertension; F17.200 Nicotine dependence, unspecified, uncomplicated
CPT/HCPCS: 36415; 71046; 80053; 85025; 94640; 96372; 99283; J2930

== ENCOUNTER 2020-11-29 20:07 | Emergency (ER) | payer MEDICARE, OTHER, SELFPAY ==
--- NOTE | ~2020-11-29 | XR_ITS ---
EXAMINATION: XR chest 2V EXAM DATE: 11/29/2020 20:46 INDICATION: Shortness of breath . TECHNIQUE: Frontal and lateral projections of the chest obtained and reviewed. Comparison is made to prior examination from 10/31/2020. FINDINGS: The lungs are hyperinflated which can be seen with chronic obstructive pulmonary disease (a clinical diagnosis of functional impairment), but is not diagnostic of it. Scattered postinfectious residua. No confluent consolidation, pneumothorax or pleural effusion suspected. Narrow cardiac silho uette from the hyperinflated lungs. Subacute right 7th rib fracture posteriorly. There is no signific ant interval change. IMPRESSION: Chronic hyperinflation. No acute findings. Reviewed, dictated and finalized at location G.
[2020-11-29 20:15] VITALS: BP 135/84; PULSE 86; RESP 24; TEMP 36.9; O2SAT 96
[2020-11-29] MEDS: methylPREDNISolone SOD SUCC 125 MG VIAL IV PUSH (20:48)
[2020-11-29] MEDS: IPRATROPIUM 0.5 MG/ALBUTEROL SULFATE 2.5 MG AMPUL.NEB 3 ML INHALATION (20:48)
[2020-11-29 20:49] VITALS: PULSE 86; RESP 24; O2SAT 96
--- NOTE | 2020-11-29 20:52 | ED.SOB ---
HPI - SOB/Dyspnea General Chief Complaint: Shortness of Breath/Dyspnea Stated Complaint: COPD SOB Source: patient Mode of arrival: ambulatory Limitations: no limitations History of Present Illness HPI Narrative: this is a 64-year-old male with a history of COPD that recently ran out of his inhaler having increased shortness of breath with some coarse breath sounds with no fever chills O2 sats at 96% on room air with no chest tightness no nausea vomiting no abdominal pain. MD elicited complaint: shortness of breath and cough Pertinent past history: COPD Onset (ago): hour(s) Timing: constant Severity: mild Exacerbating factors: coughing and inspiration Known history of: COPD Related Data Home Medications Medication Instructions Recorded Confirmed folic acid 1 mg PO DAILY 06/06/19 11/29/20 tiotropium bromide [Spiriva with 1 cap INHALATION DAILY 08/20/20 11/29/20 HandiHaler] Allergies Allergy/AdvReac Type Severity Reaction Status Date / Time No Known Allergies Allergy Verified 10/30/20 09:27 Review of Systems Review of Systems: All systems reviewed & are unremarkable except as noted in HPI and below PMFSH Past Medical History Medical History COPD (chronic obstructive pulmonary disease) Depression HTN (hypertension) Light-headedness Tobacco dependence Vertigo Family History Family History Mother CAD (coronary artery disease) Chronic obstructive pulmonary disease Father Blood clot in vein Social History Social History Smoking packs per day: 0.5 Smoking cigarettes per day: 10.0 Years smoked: 45 Smoking pack-years: 22.50 Smoking status: Current every day smoker Tobacco type: cigarettes Second hand tobacco smoke exposure: No Smoking end date: 03/30/20 Alcohol intake: former Drinks per week: 18 Substance use: never Substance use type: does not use Last use: Quit drinking alcohol 18 months ago Gender identity (if verbalized by the patient): Male Spiritual care concerns: No Agree to blood products: Yes Exam Const: General: no acute distress HENMT: Head: normal to inspection Eyes: Conjunctivae: conjunctivae normal Pupils: Equal, round and reactive pupils present EOM: EOMs intact bilaterally Direct Ophthalmoscopy: no photophobia Neck: Neck: normal visual inspection, no lymphadenopathy and no meningeal signs Chest: Chest palpation & inspection: normal inspection of the chest Resp: Effort & Inspection: normal respiratory effort Auscultation: clear to auscultation bilaterally and diminished lung sounds Cardio: Rate: regular rate Rhythm: regular rhythm GI: GI Palp: Yes Soft to palpation Percussion: Yes normal to percussion Back/Spine/Pelvis: Back: no CVA tenderness Skin: General skin exam: normal color Rashes: no rashes Neuro: General: patient oriented x3 Extrem: General: normal to inspection Psych: Mental Status: mental status grossly normal Affect: normal affect Thought content: Yes Normal thought content present Course Course Emergency Course: Patient received DuoNebs and IV Solu-Medrol and feels much better lung sounds improved advised to stop tobacco use prescribed inhalers form. Vital Signs Vital signs: Vital Signs Temperature 36.9 C 11/29/20 20:15 Pulse Rate 86 11/29/20 20:15 Respiratory Rate 24 H 11/29/20 20:15 Blood Pressure 135/84 11/29/20 20:15 Pulse Oximetry 96 11/29/20 20:15 Temperature 36.9 C 11/29/20 20:15 Pulse Rate 86 11/29/20 20:49 Respiratory Rate 24 H 11/29/20 20:49 Blood Pressure 135/84 11/29/20 20:15 Pulse Oximetry 96 11/29/20 20:49 Critical Care Time Critical Care Time Critical Care Time: No Discharge Plan Discharge Clinical Impression: COPD (chronic obstructive pulmonary disease) Qualifiers: COPD type: u
[2020-11-29] MEDS: ALBUTEROL SULFATE (*SP) INHALER 2 PUFF INHALATION (21:08)
[2020-11-29 21:10] VITALS: BP 137/80; PULSE 85; RESP 20; TEMP 37.1; O2SAT 94
[2020-11-29 21:12] VITALS: PULSE 86; RESP 22; O2SAT 96
== END 2020-11-29 21:13 | disposition home or self-care (01) ==
PROVIDERS: Emergency Provider Emergency Medicine; PCP Family Medicine
DX: J44.9 Chronic obstructive pulmonary disease, unspecified (principal); I10 Essential (primary) hypertension; F17.200 Nicotine dependence, unspecified, uncomplicated
CPT/HCPCS: 71046; 94640; 96374; 99283; 99284; A9270; J2930

== ENCOUNTER 2020-12-02 22:57 | Emergency (ER) | payer MEDICARE, OTHER, SELFPAY ==
--- NOTE | ~2020-12-02 | XR_ITS ---
EXAMINATION: XR chest 2V DATE: 12/02/2020 23:47 INDICATION: Shortness of breath TECHNIQUE: PA and lateral views of the chest are obtained. COMPARISON: 11/29/2020 FINDINGS: The lungs are hyperinflated but free of acute opacities. There is symmetric scarring in the lung apices. Calcified pulmonary nodules are consistent with old granulomatous disease. There is no pleural effusion or pneumothorax. The cardiomediastinal silhouette is normal. There is moderate thora cic spondylosis. A healing right seventh rib fracture is noted. IMPRESSION: 1. Hyperinflation without acute cardiopulmonary abnormality. Reviewed, dictated and finalized at location A.
--- NOTE | 2020-12-02 23:08 | ECG_ITS ---
Measurements Intervals [place] Rate: 86 P: 82 PA: 161 QRS: 78 QRSD: 90 T: 70 QT: 339 QTc: 407 Interpretive Statements SINUS RHYTHM MINIMAL Q WAVES- ANTEROLATERAL LEADS PEAKED T WAVES- CONSIDER HYPERKALEMIA OR ISCHEMIA BASELINE ARTIFACT- I, II, III, AVR, AVL, AVF, V4-V6 ABNORMAL ECG Electronically Signed On 12-03-2020 6:51:10 CDT by Brock Seymour D.O.
[2020-12-02 23:15] VITALS: BP 132/85; PULSE 86; RESP 24; TEMP 36.4; O2SAT 98
[2020-12-02 23:27] VITALS: PULSE 84; RESP 20; O2SAT 100
[2020-12-02] MEDS: IPRATROPIUM 0.5 MG/ALBUTEROL SULFATE 2.5 MG AMPUL.NEB 3 ML (23:27)
[2020-12-02 23:31] VITALS: PULSE 89; RESP 20; O2SAT 100
--- NOTE | 2020-12-02 23:33 | ED.SOB ---
HPI - SOB/Dyspnea General Chief Complaint: Shortness of Breath/Dyspnea Stated Complaint: AMB Time Seen by Provider: 12/02/20 23:15 Source: patient Mode of arrival: ambulatory Limitations: no limitations History of Present Illness HPI Narrative: Patient comes in with moderate shortness of breath ongoing for the last couple of days, worse tonight. He has denied any fever or chills. He has had minimal clear sputum production. Nothing known has precipitated this. Shortness of breath has been ongoing, not made any better by medicines at home. No modifying factors. No chest pain or other symptoms. MD elicited complaint: shortness of breath Pertinent past history: COPD Onset (ago): minute(s) Timing: constant Severity: moderate Exacerbating factors: exertion Relieving factors: rest Known history of: COPD Associated symptoms: denies other symptoms Treatment prior to arrival: bronchodilator Related Data Home Medications Medication Instructions Recorded Confirmed folic acid 1 mg PO DAILY 06/06/19 12/02/20 tiotropium bromide [Spiriva with 1 cap INHALATION DAILY 08/20/20 12/02/20 HandiHaler] prednisone 20 mg PO DAILY 12/02/20 12/02/20 Allergies Allergy/AdvReac Type Severity Reaction Status Date / Time No Known Allergies Allergy Verified 10/30/20 09:27 Review of Systems Constitutional: Constitutional: Reports no additional constitutional complaints Eyes: Eyes: Reports no additional eye complaints ENT: Reports system reviewed and no additional complaints, except as documented Cardiovascular: Cardiovascular: Reports no additional cardiovascular complaints Respiratory: Respiratory: Reports no additional respiratory complaints Gastrointestinal: Gastrointestinal: Reports no additional gastrointestinal complaints Genitourinary: Genitourinary: Reports no additional male genitourinary complaints Musculoskeletal: Musculoskeletal: Reports no additional musculoskeletal complaints Integumentary/Breasts: Skin/Breast: Reports system reviewed and no additional complaints, except as docu Neurologic: Reports system reviewed and no additional complaints, except as documented Psychiatric: Psychiatric: Reports no additional psychiatric complaints Endocrine: Endocrine: Reports no additional endocrine complaints Hematologic/Lymphatic: Hematologic/Lymphatic: Reports no additional hematologic/lymphatic complaints Allergic/Immunologic: Allergic/Immunologic: Reports no additional allergic/immunologic complaints [facility] Past Medical History Medical History COPD (chronic obstructive pulmonary disease) Depression HTN (hypertension) Light-headedness Tobacco dependence Vertigo Family History Family History Mother CAD (coronary artery disease) Chronic obstructive pulmonary disease Father Blood clot in vein Social History Social History Smoking packs per day: 0.5 Smoking cigarettes per day: 10.0 Years smoked: 45 Smoking pack-years: 22.50 Smoking status: Current every day smoker Tobacco type: cigarettes Second hand tobacco smoke exposure: No Smoking end date: 03/30/20 Alcohol intake: former Drinks per week: 18 Substance use: never Substance use type: does not use Last use: Quit drinking alcohol 18 months ago Gender identity (if verbalized by the patient): Male Spiritual care concerns: No Agree to blood products: Yes Exam Const: General: alert Orientation/consciousness: patient oriented x3 HENMT: Head: normal to inspection Ears: external ears normal General nose exam: Normal external nose present Mouth: Yes Normal oral and palatal mucosa present Throat: posterior oropharynx normal Eyes: Conjunctivae: conjunctivae normal Neck: Neck: normal visual inspection and no lymphadenopathy Chest: Chest palpation & inspection: normal ins
[2020-12-02] MEDS: DEXAMETHASONE SOD PHOS INJ 4 MG/ML VIAL 10 MG IV PUSH (23:41)
[2020-12-02 23:51] LABS: Hematocrit 41.3 % (37.0-46.0); Hemoglobin 13.7 g/dL (12.4-15.3); Mean Corpuscular HGB Conc 33.2 g/dL (32.0-36.0); Mean Corpuscular Hemoglobin 30.2 pg (27.0-31.0); Mean Platelet Volume 8.9 fl (8.7-11.0); Platelet Count Result 402 K/mm3 (150-420); Red Blood Count 4.54 M/mm3 (4.70-6.10); Red Cell Distribution Width 13.2 % (11.6-14.4); White Blood Count 10.4 K/mm3 (4.8-10.8)
[2020-12-03 00:12] LABS: Alanine Aminotransferase 27 U/L (16-63); Albumin Level 3.6 g/dL (3.4-5.0); Alkaline Phosphatase 82 U/L (46-116); Anion Gap 8 mmol/L (8-16); Aspartate Amino Transferase 21 U/L (15-37); Bilirubin,Total 0.3 mg/dL (0.00-1.00); Blood Urea Nitrogen 12 mg/dL (7-18); Calcium 9.1 mg/dL (8.5-10.1); Carbon Dioxide 29 mmol/L (21-32); Chloride 103 mmol/L (98-108); Estimated CRCL calculation 47 ml/min; Estimated Glomerular Filt Rate 59; Glucose 98 mg/dL (70-99); Osmolality Calculated 289 mOsm/kg (285-295); Potassium 4.1 mmol/L (3.5-5.1); Sodium 140 mmol/L (136-145); Total Protein 7.2 g/dL (6.4-8.2)
[2020-12-03 00:13] LABS: Troponin I < 4.0 ng/L (0.00-60.4)
[2020-12-03 00:13] LABS: NT Pro B Type Natriuretic Pept 155 pg/mL (0-125)
[2020-12-03 00:26] LABS: Band Neutrophils Percent 0 % (0-6); Basophils Percent Manual 1 % (0-1); Eosinophils Absolute Manual 0.52 K/mm3 (0.02-0.5); Eosinophils Percent Manual 5 % (1-6); Lymphocytes Absolute Manual 2.39 K/mm3 (1.1-4.5); Lymphocytes Percent Manual 23 % (18-44); Monocytes Absolute Manual 0.93 K/mm3 (0.1-0.90); Monocytes Percent Manual 9 % (3-9); Neutrophils Absolute Manual 6.44 K/mm3 (1.3-6.7); Neutrophils Percent Manual 62 % (46-73); Platelet Estimate Adequate (Adequate); Total Cells Counted 100
[2020-12-03 00:31] VITALS: BP 134/72; PULSE 87; RESP 20; TEMP 36.6; O2SAT 97
== END 2020-12-03 00:51 | disposition home or self-care (01) ==
PROVIDERS: Emergency Provider Emergency Medicine; PCP Family Medicine
DX: J44.1 Chronic obstructive pulmonary disease with (acute) exacerbation (principal)
CPT/HCPCS: 36415; 71046; 80053; 83880; 84484; 85025; 85380; 93005; 94640; 96374; 99283; 99284; J1100

== ENCOUNTER 2020-12-23 20:39 | Emergency (ER) | payer MEDICARE, OTHER, SELFPAY ==
--- NOTE | ~2020-12-23 | XR_ITS ---
EXAMINATION: XR chest 2V DATE: 12/23/2020 22:23 INDICATION: COPD presenting with dyspnea TECHNIQUE: PA and lateral views of the chest were obtained. COMPARISON: Chest radiograph dated 12/02/[address] dated 07/19/2020 FINDINGS: Hyperexpansion of lungs with flattening of the diaphragm and increased retrosternal clear space consi stent with emphysema better appreciated on prior CT. There is moderate biapical pleural-parenchymal s carring. A few bilateral scattered calcified pulmonary nodules along with calcified bilateral hilar a nd mediastinal lymph nodes consistent with old granulomatous disease. No pulmonary edema, pneumonia, pleural effusion or pneumothorax. The cardiomediastinal silhouette is normal. Moderate thoracic spond ylosis. IMPRESSION: 1. Emphysema. No other acute cardiopulmonary disease. Reviewed, dictated and finalized at location A.
--- NOTE | 2020-12-23 20:54 | ECG_ITS ---
Measurements Intervals [place] Rate: 80 P: 80 NM: 169 QRS: 78 QRSD: 85 T: 73 QT: 360 QTc: 418 Interpretive Statements SINUS RHYTHM PEAKED T WAVES- CONSIDER HYPERKALEMIA OR ISCHEMIA BASELINE ARTIFACT- I, II, III, AVR, AVL, AVF, V5 ABNORMAL ECG Electronically Signed On 12-24-2020 6:42:54 CDT by Brock Seymour D.O.
--- NOTE | 2020-12-23 20:54 | ED.SOB ---
HPI - SOB/Dyspnea General Chief Complaint: Shortness of Breath/Dyspnea Stated Complaint: trouble breathing Time Seen by Provider: 12/23/20 20:54 Source: patient Mode of arrival: ambulatory Limitations: no limitations History of Present Illness HPI Narrative: 65-year-old man with a history of COPD comes in today complaining of shortness of breath and a cough productive of clear sputum that started at 2:00 a.m.. Patient states that lying down makes his symptoms worse. He has been using his home nebulizer and inhalers to no avail. He denies sick contacts, fever, chest pain, vomiting, diarrhea, abdominal pain, dysuria, hematuria, back pain, congestion and sore throat. He states he has had the COVID vaccine and the influenza vaccine. MD elicited complaint: shortness of breath and cough Pertinent past history: COPD Timing: constant and progressively worsening Severity: moderate Exacerbating factors: lying flat and exertion Relieving factors: nothing Known history of: COPD Associated symptoms: cough and wheezing Treatment prior to arrival: bronchodilator Related Data Home oxygen amount: none Home Medications Medication Instructions Recorded Confirmed folic acid 1 mg PO DAILY 06/06/19 12/11/20 tiotropium bromide [Spiriva with 1 cap INHALATION DAILY 08/20/20 12/11/20 HandiHaler] citalopram 10 mg PO DAILY 12/23/20 12/23/20 Allergies Allergy/AdvReac Type Severity Reaction Status Date / Time No Known Allergies Allergy Verified 12/23/20 21:08 Review of Systems Constitutional: Constitutional: Denies chills, Denies fever(s) and Denies weakness Eyes: Eyes: Denies change in vision and Denies photophobia ENT: Denies nasal congestion and Denies sore throat Cardiovascular: Cardiovascular: Denies chest pain and Denies radiating jaw, neck or arm pain Respiratory: Respiratory: Reports as per HPI, Reports cough, Reports dyspnea and Reports wheezing Gastrointestinal: Gastrointestinal: Denies abdominal pain, Denies diarrhea, Denies nausea and Denies vomiting Genitourinary: Genitourinary: Denies hematuria, Denies dysuria and Denies urinary frequency Musculoskeletal: Musculoskeletal: Denies back pain, Denies arthralgias and Denies joint swelling Integumentary/Breasts: Skin/Breast: Denies pruritus, Denies erythema and Denies rash Neurologic: Denies vertigo, Denies dizziness and Denies syncope Hematologic/Lymphatic: Hematologic/Lymphatic: Denies easy bleeding and Denies easy bruising Allergic/Immunologic: Allergic/Immunologic: Denies lip swelling and Denies throat swelling PMFSH Past Medical History Medical History COPD (chronic obstructive pulmonary disease) Depression HTN (hypertension) Light-headedness Tobacco dependence Vertigo Family History Family History Mother CAD (coronary artery disease) Chronic obstructive pulmonary disease Father Blood clot in vein Social History Social History Smoking packs per day: 0.5 Smoking cigarettes per day: 10.0 Years smoked: 45 Smoking pack-years: 22.50 Smoking status: Current every day smoker Tobacco type: cigarettes Second hand tobacco smoke exposure: No Smoking end date: 03/30/20 Alcohol intake: former Drinks per week: 18 Substance use: never Substance use type: does not use Last use: Quit drinking alcohol 18 months ago Gender identity (if verbalized by the patient): Male Spiritual care concerns: No Agree to blood products: Yes Exam Const: General: alert Nutritional Appearance: thin Orientation/consciousness: patient oriented x3 Limitations: no limitations Other: Mild acute distress. HENMT: Head: normal to inspection Ears: external ears normal and TM's normal bilaterally General nose exam: Normal nares present Face and sinus: normal facial exam Mouth: Yes mois
[2020-12-23 20:55] VITALS: BP 163/73; PULSE 80; RESP 20; TEMP 36.8; O2SAT 97
[2020-12-23 21:05] VITALS: PULSE 79; RESP 18; O2SAT 97
[2020-12-23] MEDS: IPRATROPIUM 0.5 MG/ALBUTEROL SULFATE 2.5 MG AMPUL.NEB 3 ML INHALATION (21:08)
[2020-12-23] MEDS: ALBUTEROL SULFATE NEB 2.5 MG/3 ML INH INHALATION (21:16)
[2020-12-23 21:25] VITALS: PULSE 82; RESP 18; O2SAT 98
[2020-12-23] MEDS: methylPREDNISolone SOD SUCC 40 MG VIAL 80 MG IV PUSH (21:27)
[2020-12-23 21:54] LABS: SARS-CoV-2 Ag Negative (Negative)
[2020-12-23 21:55] VITALS: BP 143/73; PULSE 87; RESP 20; O2SAT 93
[2020-12-23 22:45] VITALS: BP 151/75; PULSE 84; RESP 20; TEMP 36.7; O2SAT 95
== END 2020-12-23 22:46 | disposition home or self-care (01) ==
PROVIDERS: Emergency Provider Emergency Medicine; PCP Family Medicine
DX: J44.1 Chronic obstructive pulmonary disease with (acute) exacerbation (principal); Z20.822 Contact with and (suspected) exposure to COVID-19
CPT/HCPCS: 71046; 87426; 93005; 94640; 96374; 99283; 99284; C9803; J2920

== ENCOUNTER 2020-12-31 20:47 | Emergency (ER) | payer MEDICARE, OTHER, SELFPAY ==
--- NOTE | ~2020-12-31 | XR_ITS ---
XR chest 1V portable DATE: 12/31/2020 21:40 INDICATION: Shortness of breath for one day. History of COPD. TECHNIQUE: Portable upright AP chest on 12/31/2020 at 2151 hours COMPARISON: 12/23/2020 PA and lateral chest FINDINGS: Bilateral hyperinflation and relative flattening of the diaphragms consistent with COPD. No pulmonary infiltrate or consolidation, pleural effusion or pulmonary vascular congestion or pneumoth orax. Normal heart size. No hilar or mediastinal enlargement. Diffuse osteopenia. IMPRESSION: COPD Reviewed, dictated and finalized at location A. IMPRESSION: COPD
[2020-12-31 20:50] VITALS: BP 150/75; PULSE 90; RESP 20; TEMP 36.9; O2SAT 95
--- NOTE | 2020-12-31 21:04 | ECG_ITS ---
Measurements Intervals [place] Rate: 84 P: 89 IA: 163 QRS: 77 QRSD: 85 T: 83 QT: 337 QTc: 401 Interpretive Statements SINUS RHYTHM VOLTAGE CRITERIA FOR LVH BORDERLINE R WAVE PROGRESSION, ANTERIOR LEADS MINIMAL Q WAVES- LATERAL LEADS PEAKED T WAVES- CONSIDER HYPERKALEMIA OR ISCHEMIA BASELINE ARTIFACT- I, II, III, AVR, AVL, AVF, V1-V2 ABNORMAL ECG Electronically Signed On 01-01-2021 7:41:32 CDT by Brock Seymour D.O.
[2020-12-31 21:15] VITALS: PULSE 90; RESP 18; O2SAT 96
[2020-12-31 21:17] LABS: Hematocrit 41.4 % (37.0-46.0); Hemoglobin 13.8 g/dL (12.4-15.3); Mean Corpuscular HGB Conc 33.3 g/dL (32.0-36.0); Mean Corpuscular Hemoglobin 30.3 pg (27.0-31.0); Mean Corpuscular Volume 90.8 fL (78.0-102.0); Mean Platelet Volume 8.5 fl (8.7-11.0); Platelet Count Result 394 K/mm3 (150-420); Red Blood Count 4.56 M/mm3 (4.70-6.10); Red Cell Distribution Width 13.5 % (11.6-14.4)
[2020-12-31] MEDS: LORazepam INJ (*CRX) 2 MG/ML VIAL 1 MG IV PUSH (21:20)
[2020-12-31 21:25] VITALS: PULSE 86; RESP 18; O2SAT 98
--- NOTE | 2020-12-31 21:25 | ED.GENADULT ---
HPI - General Adult General Chief complaint: Shortness of Breath/Dyspnea Stated complaint: trouble breathing, tightness in chest Source: patient Mode of arrival: ambulatory Limitations: no limitations History of Present Illness HPI narrative: Karan is a 65M with a PMH of HTN, tobacco abuse and COPD that presented to the ED with shortness of breath. He reports that throughout the day he has had worsening SOB, increased cough, and increased sputum production. He has a little lightheadedness when he is breathing hard. No CP, syncope, vomiting, fevers, or chills. Related Data Home Medications Medication Instructions Recorded Confirmed folic acid 1 mg PO DAILY 06/06/19 12/31/20 tiotropium bromide [Spiriva with 1 cap INHALATION DAILY 08/20/20 12/31/20 HandiHaler] citalopram 10 mg PO DAILY 12/23/20 12/31/20 Allergies Allergy/AdvReac Type Severity Reaction Status Date / Time No Known Allergies Allergy Verified 12/23/20 21:08 Review of Systems Constitutional: Constitutional: Reports no additional constitutional complaints Eyes: Eyes: Reports no additional eye complaints ENT: Reports system reviewed and no additional complaints, except as documented Cardiovascular: Cardiovascular: Denies chest pain, Denies rapid heart rate and Denies radiating jaw, neck or arm pain Respiratory: Respiratory: Reports as per HPI Gastrointestinal: Gastrointestinal: Reports no additional gastrointestinal complaints Genitourinary: Genitourinary: Reports no additional male genitourinary complaints Musculoskeletal: Musculoskeletal: Reports no additional musculoskeletal complaints Integumentary/Breasts: Skin/Breast: Reports system reviewed and no additional complaints, except as docu Neurologic: Reports system reviewed and no additional complaints, except as documented Psychiatric: Psychiatric: Reports no additional psychiatric complaints Endocrine: Endocrine: Reports no additional endocrine complaints Hematologic/Lymphatic: Hematologic/Lymphatic: Reports no additional hematologic/lymphatic complaints Allergic/Immunologic: Allergic/Immunologic: Reports no additional allergic/immunologic complaints [facility] Past Medical History Medical History COPD (chronic obstructive pulmonary disease) Depression HTN (hypertension) Light-headedness Tobacco dependence Vertigo Family History Family History Mother CAD (coronary artery disease) Chronic obstructive pulmonary disease Father Blood clot in vein Social History Social History Smoking packs per day: 0.5 Smoking cigarettes per day: 10.0 Years smoked: 45 Smoking pack-years: 22.50 Smoking status: Current every day smoker Tobacco type: cigarettes Second hand tobacco smoke exposure: No Smoking end date: 03/30/20 Alcohol intake: former Drinks per week: 18 Substance use: never Substance use type: does not use Last use: Quit drinking alcohol 18 months ago Gender identity (if verbalized by the patient): Male Spiritual care concerns: No Agree to blood products: Yes Exam Const: General: no acute distress and alert Orientation/consciousness: patient oriented x3 Limitations: No altered mental status HENMT: Head: normal to inspection Other: atraumatic Eyes: Conjunctivae: conjunctivae normal Pupils: Equal, round and reactive pupils present Neck: Neck: normal visual inspection Chest: Chest palpation & inspection: normal inspection of the chest Resp: Effort & Inspection: labored, no retractions, tachypneic and no use of accessory muscles Other: Increased respiratory effort, prolonged expiratory phase. Scant wheezes throughout. Cardio: Rate: regular rate Rhythm: regular rhythm Heart sounds: no murmurs GI: Inspection: non-distended GI Palp: Yes Soft to palpation, No Tenderness to pa
[2020-12-31] MEDS: IPRATROPIUM 0.5 MG/ALBUTEROL SULFATE 2.5 MG AMPUL.NEB 3 ML INHALATION (21:26)
[2020-12-31 21:27] VITALS: BP 159/87; PULSE 88; RESP 20; TEMP 36.9; O2SAT 96
[2020-12-31 21:31] LABS: D Dimer 0.34 mg/L (0.19-0.50); INR 0.9
[2020-12-31 21:38] LABS: Alanine Aminotransferase 26 U/L (16-63); Albumin Level 3.2 g/dL (3.4-5.0); Alkaline Phosphatase 73 U/L (46-116); Anion Gap 8 mmol/L (8-16); Aspartate Amino Transferase 15 U/L (15-37); Bilirubin,Total 0.5 mg/dL (0.00-1.00); Blood Urea Nitrogen 22 mg/dL (7-18); Calcium 8.5 mg/dL (8.5-10.1); Carbon Dioxide 27 mmol/L (21-32); Chloride 102 mmol/L (98-108); Estimated CRCL calculation 44 ml/min; Estimated Glomerular Filt Rate 58; Glucose 114 mg/dL (70-99); Osmolality Calculated 288 mOsm/kg (285-295); Potassium 4.4 mmol/L (3.5-5.1); Sodium 137 mmol/L (136-145); Total Protein 6.9 g/dL (6.4-8.2); Troponin I 4.7 ng/L (0.00-60.4)
[2020-12-31 21:58] LABS: Band Neutrophils Percent 0 % (0-6); Basophils Absolute Manual 0.11 K/mm3 (0-0.1); Basophils Percent Manual 1 % (0-1); Eosinophils Absolute Manual 0.99 K/mm3 (0.02-0.5); Eosinophils Percent Manual 9 % (1-6); Lymphocytes Absolute Manual 3.19 K/mm3 (1.1-4.5); Lymphocytes Percent Manual 29 % (18-44); Monocytes Absolute Manual 0.88 K/mm3 (0.1-0.90); Monocytes Percent Manual 8 % (3-9); Neutrophils Absolute Manual 5.83 K/mm3 (1.3-6.7); Neutrophils Percent Manual 53 % (46-73); Platelet Estimate Adequate (Adequate); Total Cells Counted 100
[2020-12-31 21:59] LABS: NT Pro B Type Natriuretic Pept 54 pg/mL (0-125)
[2020-12-31 22:16] VITALS: BP 139/76; PULSE 91; RESP 20; TEMP 37.1; O2SAT 97
[2020-12-31] MEDS: AZITHROMYCIN 250 MG TABLET 500 MG PO (22:16)
[2020-12-31] MEDS: predniSONE 20 MG TABLET 40 MG PO (22:16)
== END 2020-12-31 22:19 | disposition home or self-care (01) ==
PROVIDERS: Emergency Provider Family Medicine; PCP Family Medicine
DX: J44.1 Chronic obstructive pulmonary disease with (acute) exacerbation (principal); F41.1 Generalized anxiety disorder; I10 Essential (primary) hypertension; F17.200 Nicotine dependence, unspecified, uncomplicated
CPT/HCPCS: 36415; 71045; 80053; 83880; 84484; 85025; 85380; 85610; 93005; 94640; 96374; 99283; 99284; A9270; J2060; J7512

== ENCOUNTER 2021-01-13 19:50 | Emergency (ER) | payer MEDICARE, OTHER, SELFPAY ==
--- NOTE | ~2021-01-13 | XR_ITS ---
EXAMINATION: XR chest 2V EXAM DATE: 01/13/2021 20:17 INDICATION: Shortness of breath. History COPD. TECHNIQUE: Frontal and lateral projections of the chest obtained and reviewed. Comparison is made to prior examination from 12/31/2020. FINDINGS: Severe chronic hyperinflation which can be seen with chronic obstructive pulmonary disease (a clinical diagnosis of functional impairment), but is not diagnostic of it. Scattered postinfecti ous residua unchanged. There are mild bony degenerative changes. IMPRESSION: 1. Chronic hyperinflation. 2. Postinfectious residua. Reviewed, dictated and finalized at location A.
[2021-01-13 19:55] VITALS: BP 164/85; PULSE 78; RESP 22; TEMP 36.6; O2SAT 98
--- NOTE | 2021-01-13 20:00 | ECG_ITS ---
Measurements Intervals [place] Rate: 76 P: 84 [place]: 168 QRS: 76 QRSD: 89 T: 79 QT: 359 QTc: 404 Interpretive Statements SINUS RHYTHM VOLTAGE CRITERIA FOR LVH BASELINE ARTIFACT- I, II, III, AVR, AVL, AVF, V1-V6 BORDERLINE ECG Electronically Signed On 01-14-2021 6:10:36 CDT by Brock Seymour D.O.
[2021-01-13] MEDS: LORazepam (*CRX) 1 MG TABLET PO (20:07)
--- NOTE | 2021-01-13 20:07 | ED.SOB ---
HPI - SOB/Dyspnea General Chief Complaint: Shortness of Breath/Dyspnea Stated Complaint: trouble breathing, tightness in chest Time Seen by Provider: 01/13/21 19:55 Source: patient and family Mode of arrival: ambulatory Limitations: no limitations History of Present Illness HPI Narrative: Patient comes in stating he has been short of breath all day. This shortness of breath has been ongoing and moderately severe. It has been associated with some anxiety. He denies, significant cough, but has had a little clear thin sputum production, which may be a little more than normal. No fever, no chills, no chest pain. MD elicited complaint: shortness of breath Pertinent past history: COPD Onset (ago): hour(s) (SOB all day today) Timing: intermittent Severity: mild Exacerbating factors: exertion Relieving factors: rest Known history of: COPD Associated symptoms: denies other symptoms Treatment prior to arrival: bronchodilator Related Data Home Medications Medication Instructions Recorded Confirmed folic acid 1 mg PO DAILY 06/06/19 01/13/21 tiotropium bromide [Spiriva with 1 cap INHALATION DAILY 08/20/20 01/13/21 HandiHaler] citalopram 10 mg PO DAILY 12/23/20 01/13/21 Allergies Allergy/AdvReac Type Severity Reaction Status Date / Time No Known Allergies Allergy Verified 12/23/20 21:08 Review of Systems Constitutional: Constitutional: Reports no additional constitutional complaints Eyes: Eyes: Reports no additional eye complaints ENT: Reports system reviewed and no additional complaints, except as documented Cardiovascular: Cardiovascular: Reports no additional cardiovascular complaints Respiratory: Respiratory: Reports no additional respiratory complaints Gastrointestinal: Gastrointestinal: Reports no additional gastrointestinal complaints Genitourinary: Genitourinary: Reports no additional male genitourinary complaints Musculoskeletal: Musculoskeletal: Reports no additional musculoskeletal complaints Integumentary/Breasts: Skin/Breast: Reports system reviewed and no additional complaints, except as docu Neurologic: Reports system reviewed and no additional complaints, except as documented Psychiatric: Psychiatric: Reports no additional psychiatric complaints Endocrine: Endocrine: Reports no additional endocrine complaints Hematologic/Lymphatic: Hematologic/Lymphatic: Reports no additional hematologic/lymphatic complaints Allergic/Immunologic: Allergic/Immunologic: Reports no additional allergic/immunologic complaints PMFSH Past Medical History Medical History (Updated 01/13/21 @ 20:55 by Bj Mayes MD) COPD (chronic obstructive pulmonary disease) Depression HTN (hypertension) Light-headedness Tobacco dependence Vertigo Surgical History Surgical History (Updated 01/13/21 @ 23:42 by Bj Mayes MD) No significant past surgical history Family History Family History Mother CAD (coronary artery disease) Chronic obstructive pulmonary disease Father Blood clot in vein Social History Social History Smoking packs per day: 0.5 Smoking cigarettes per day: 10.0 Years smoked: 45 Smoking pack-years: 22.50 Smoking status: Current every day smoker Tobacco type: cigarettes Second hand tobacco smoke exposure: No Smoking end date: 03/30/20 Alcohol intake: former Drinks per week: 18 Substance use: never Substance use type: does not use Last use: Quit drinking alcohol 18 months ago Gender identity (if verbalized by the patient): Male Spiritual care concerns: No Agree to blood products: Yes Exam Const: General: no acute distress and alert Orientation/consciousness: patient oriented x3 HENMT: Head: normal to inspection Ears: external ears normal General nose exam: Normal external nose present Face and sinus: normal facial exam Mouth: Yes Normal oral and pa
[2021-01-13] MEDS: methylPREDNISolone SOD SUCC 125 MG VIAL IV PUSH (20:10)
[2021-01-13 20:13] LABS: Hematocrit 41.7 % (37.0-46.0); Mean Corpuscular HGB Conc 33.6 g/dL (32.0-36.0); Mean Corpuscular Hemoglobin 30.8 pg (27.0-31.0); Mean Corpuscular Volume 91.6 fL (78.0-102.0); Mean Platelet Volume 8.9 fl (8.7-11.0); Platelet Count Result 257 K/mm3 (150-420); Red Blood Count 4.55 M/mm3 (4.70-6.10); Red Cell Distribution Width 13.4 % (11.6-14.4); White Blood Count 9.4 K/mm3 (4.8-10.8)
[2021-01-13 20:36] LABS: Alanine Aminotransferase 23 U/L (16-63); Albumin Level 3.5 g/dL (3.4-5.0); Alkaline Phosphatase 61 U/L (46-116); Anion Gap 9 mmol/L (8-16); Aspartate Amino Transferase 29 U/L (15-37); Bilirubin,Total 0.5 mg/dL (0.00-1.00); Blood Urea Nitrogen 19 mg/dL (7-18); Calcium 8.8 mg/dL (8.5-10.1); Carbon Dioxide 29 mmol/L (21-32); Chloride 103 mmol/L (98-108); Estimated CRCL calculation 45 ml/min; Estimated Glomerular Filt Rate > 60; Glucose 91 mg/dL (70-99); Osmolality Calculated 294 mOsm/kg (285-295); Potassium 4.4 mmol/L (3.5-5.1); Sodium 141 mmol/L (136-145); Total Protein 7.2 g/dL (6.4-8.2)
[2021-01-13 20:37] LABS: Magnesium 2.1 mg/dL (1.8-2.4)
[2021-01-13 20:37] LABS: NT Pro B Type Natriuretic Pept 100 pg/mL (0-125); Troponin I 6.3 ng/L (0.00-60.4)
[2021-01-13 20:41] LABS: D Dimer 0.24 mg/L (0.19-0.50)
[2021-01-13 20:42] LABS: Band Neutrophils Percent 0 % (0-6); Basophils Absolute Manual 0.09 K/mm3 (0-0.1); Basophils Percent Manual 1 % (0-1); Eosinophils Absolute Manual 0.94 K/mm3 (0.02-0.5); Eosinophils Percent Manual 10 % (1-6); Lymphocytes Percent Manual 32 % (18-44); Monocytes Absolute Manual 0.37 K/mm3 (0.1-0.90); Monocytes Percent Manual 4 % (3-9); Neutrophils Absolute Manual 4.98 K/mm3 (1.3-6.7); Neutrophils Percent Manual 53 % (46-73); Total Cells Counted 100
[2021-01-13 20:43] LABS: Platelet Estimate Adequate (Adequate)
[2021-01-13 20:57] VITALS: BP 150/90; PULSE 74; RESP 20; O2SAT 96
== END 2021-01-13 21:04 | disposition home or self-care (01) ==
PROVIDERS: Emergency Provider Emergency Medicine; PCP Family Medicine
DX: J44.1 Chronic obstructive pulmonary disease with (acute) exacerbation (principal); F41.9 Anxiety disorder, unspecified
CPT/HCPCS: 36415; 71046; 80053; 83735; 83880; 84484; 85025; 85380; 93005; 96374; 99283; 99284; A9270; J2930

== ENCOUNTER 2021-01-23 20:03 | Emergency (ER) | payer MEDICARE, OTHER, SELFPAY ==
--- NOTE | ~2021-01-23 | XR_ITS ---
XR chest 2V 01/23/2021 21:42 Indication: Severe shortness of breath. COPD. Procedure: 2 view chest Comparison: Comparison to multiple prior studies sequentially, with oldest reviewed study dated 12/02. Findings: Heart size normal. There are healed right rib fractures. The lungs are hyperinflated which is consistent with, but not diagnostic of chronic obstructive pulmonary disease. No focal air space d isease, pulmonary edema, pleural effusion or suspected pneumothorax. No acute osseous abnormality. Impression: 1: No acute cardiopulmonary disease. Reviewed, dictated and finalized at location A. Impression: 1: No acute cardiopulmonary disease.
[2021-01-23 20:20] VITALS: BP 137/72; PULSE 85; RESP 20; TEMP 36.8; O2SAT 97
--- NOTE | 2021-01-23 20:22 | ED.SOB ---
HPI - SOB/Dyspnea General Source: patient Mode of arrival: ambulatory Limitations: no limitations History of Present Illness HPI Narrative: Patient has known COPD, and comes in frequently short of breath. He states he has been short of breath all day. He has had no chest pain or other symptoms, but this appears to be his typical, mild increased shortness of breath, associated with mild anxiety, which he has came in for many times. He is normally short of breath, has been diagnosed with COPD, continues to smoke though. Shortness of breath has gone on all day he says since early this am. He did take a duoneb a few hours ago, which may have helped a little MD elicited complaint: shortness of breath Pertinent past history: COPD Onset (ago): hour(s) Context: occurred during exertion Timing: constant and improved Severity: mild Exacerbating factors: stress (associated anxiety), strong odors and smoke Relieving factors: bronchodilators Known history of: COPD Associated symptoms: denies other symptoms Treatment prior to arrival: bronchodilator Related Data Home Medications Medication Instructions Recorded Confirmed folic acid 1 mg PO DAILY 06/06/19 01/23/21 tiotropium bromide [Spiriva with 1 cap INHALATION DAILY 08/20/20 01/23/21 HandiHaler] citalopram 10 mg PO DAILY 12/23/20 01/23/21 Allergies Allergy/AdvReac Type Severity Reaction Status Date / Time No Known Allergies Allergy Verified 12/23/20 21:08 Review of Systems Constitutional: Constitutional: Reports no additional constitutional complaints Eyes: Eyes: Reports no additional eye complaints ENT: Reports system reviewed and no additional complaints, except as documented Cardiovascular: Cardiovascular: Reports no additional cardiovascular complaints Respiratory: Respiratory: Reports no additional respiratory complaints Gastrointestinal: Gastrointestinal: Reports no additional gastrointestinal complaints Genitourinary: Genitourinary: Reports no additional male genitourinary complaints Musculoskeletal: Musculoskeletal: Reports no additional musculoskeletal complaints Integumentary/Breasts: Skin/Breast: Reports system reviewed and no additional complaints, except as docu Neurologic: Reports system reviewed and no additional complaints, except as documented Psychiatric: Psychiatric: Reports no additional psychiatric complaints Endocrine: Endocrine: Reports no additional endocrine complaints Hematologic/Lymphatic: Hematologic/Lymphatic: Reports no additional hematologic/lymphatic complaints Allergic/Immunologic: Allergic/Immunologic: Reports no additional allergic/immunologic complaints [facility] Past Medical History Medical History COPD (chronic obstructive pulmonary disease) Depression HTN (hypertension) Light-headedness Tobacco dependence Vertigo Surgical History Surgical History No significant past surgical history Family History Family History Mother CAD (coronary artery disease) Chronic obstructive pulmonary disease Father Blood clot in vein Social History Social History Smoking packs per day: 0.5 Smoking cigarettes per day: 10.0 Years smoked: 45 Smoking pack-years: 22.50 Smoking status: Current every day smoker Tobacco type: cigarettes Second hand tobacco smoke exposure: No Smoking end date: 03/30/20 Alcohol intake: former Drinks per week: 18 Substance use: never Substance use type: does not use Last use: Quit drinking alcohol 18 months ago Gender identity (if verbalized by the patient): Male Spiritual care concerns: No Agree to blood products: Yes Exam Const: General: healthy appearing, no acute distress and alert Orientation/consciousness: patient oriented x3 HENMT: Head: normal to inspection
[2021-01-23] MEDS: ALBUTEROL SULFATE NEB 2.5 MG/3 ML INH 5 MG INHALATION (20:33)
[2021-01-23 20:35] VITALS: PULSE 85; RESP 18; O2SAT 97
[2021-01-23 20:47] VITALS: PULSE 84; RESP 18; O2SAT 98
[2021-01-23] MEDS: methylPREDNISolone SOD SUCC 125 MG VIAL IM (20:53)
[2021-01-23 21:58] VITALS: BP 131/75; PULSE 82; RESP 20; TEMP 36.1; O2SAT 97
== END 2021-01-23 21:59 | disposition home or self-care (01) ==
PROVIDERS: Emergency Provider Emergency Medicine; PCP Family Medicine
DX: J44.1 Chronic obstructive pulmonary disease with (acute) exacerbation (principal); I10 Essential (primary) hypertension; F17.200 Nicotine dependence, unspecified, uncomplicated
CPT/HCPCS: 71046; 94640; 96372; 99283; J2930

== ENCOUNTER 2021-02-11 19:28 | Emergency (ER) | payer MEDICARE, OTHER, SELFPAY ==
--- NOTE | ~2021-02-11 | XR_ITS ---
EXAMINATION: XR chest 1V portable INDICATION: Shortness of breath TECHNIQUE: Portable AP chest at 2020 hours COMPARISON: 01/23/2021 FINDINGS: The lungs are hyperinflated. There is scarring of the lung apices. No pleural effusion or p neumothorax is identified. The cardiomediastinal silhouette is normal. Calcified pulmonary nodules an d calcified right hilar lymph nodes are consistent with old granulomatous disease. An old right rib f racture is noted. IMPRESSION: 1. Hyperinflation without acute cardiopulmonary abnormality. Reviewed, dictated and finalized at location A.
[2021-02-11 19:30] VITALS: BP 163/88; PULSE 92; RESP 20; TEMP 36.9; O2SAT 94
--- NOTE | 2021-02-11 19:51 | ECG_ITS ---
Measurements Intervals [place] Rate: 82 P: 84 WI: 167 QRS: 78 QRSD: 85 T: 76 QT: 347 QTc: 407 Interpretive Statements SINUS RHYTHM DELAYED PRECORDIAL R/S TRANSITION BASELINE ARTIFACT- II, III, AVR, AVL,A VF, V4-V6 BORDERLINE ECG Electronically Signed On 02-12-2021 6:46:26 CDT by Brock Seymour D.O.
[2021-02-11] MEDS: LORazepam (*CRX) 1 MG TABLET PO (19:56)
[2021-02-11 20:07] LABS: Hematocrit 39.6 % (37.0-46.0); Hemoglobin 13.1 g/dL (12.4-15.3); Mean Corpuscular HGB Conc 33.1 g/dL (32.0-36.0); Mean Corpuscular Hemoglobin 30.7 pg (27.0-31.0); Mean Corpuscular Volume 92.7 fL (78.0-102.0); Mean Platelet Volume 8.6 fl (8.7-11.0); Platelet Count Result 274 K/mm3 (150-420); Red Blood Count 4.27 M/mm3 (4.70-6.10); Red Cell Distribution Width 13.2 % (11.6-14.4); White Blood Count 6.8 K/mm3 (4.8-10.8)
[2021-02-11] MEDS: LORazepam (*CRX) 0.5 MG TABLET 1 MG (20:08)
--- NOTE | 2021-02-11 20:14 | ED.GENADULT ---
HPI - General Adult General Chief complaint: Shortness of Breath/Dyspnea Stated complaint: heart racing, trouble breathing Source: patient Mode of arrival: ambulatory History of Present Illness HPI narrative: Karan is a 65M with a history of HTN, COPD, anemia, and tobacco dependence that is well known to this emergency department that presented to the ED feeling SOB. He started feeling SOB yesterday. He is unsure if he is coughing more and there is no sputum production. He became anxious and it made the SOB worse. There is no CP, N/V, or near-syncope/syncope. Related Data Home Medications Medication Instructions Recorded Confirmed folic acid 1 mg PO DAILY 06/06/19 02/11/21 tiotropium bromide [Spiriva with 1 cap INHALATION DAILY 08/20/20 02/11/21 HandiHaler] citalopram 10 mg PO DAILY 12/23/20 02/11/21 Allergies Allergy/AdvReac Type Severity Reaction Status Date / Time No Known Allergies Allergy Verified 12/23/20 21:08 Review of Systems Constitutional: Constitutional: Reports no additional constitutional complaints Eyes: Eyes: Reports no additional eye complaints ENT: Reports system reviewed and no additional complaints, except as documented Cardiovascular: Cardiovascular: Reports no additional cardiovascular complaints Respiratory: Respiratory: Reports as per HPI Gastrointestinal: Gastrointestinal: Reports no additional gastrointestinal complaints Genitourinary: Genitourinary: Reports no additional male genitourinary complaints Musculoskeletal: Musculoskeletal: Reports no additional musculoskeletal complaints Integumentary/Breasts: Skin/Breast: Reports system reviewed and no additional complaints, except as docu Neurologic: Reports system reviewed and no additional complaints, except as documented Psychiatric: Psychiatric: Reports no additional psychiatric complaints Endocrine: Endocrine: Reports no additional endocrine complaints Hematologic/Lymphatic: Hematologic/Lymphatic: Reports no additional hematologic/lymphatic complaints Allergic/Immunologic: Allergic/Immunologic: Reports no additional allergic/immunologic complaints [facility] Past Medical History Medical History COPD (chronic obstructive pulmonary disease) Depression HTN (hypertension) Light-headedness Tobacco dependence Vertigo Surgical History Surgical History No significant past surgical history Family History Family History Mother CAD (coronary artery disease) Chronic obstructive pulmonary disease Father Blood clot in vein Social History Social History Smoking packs per day: 0.5 Smoking cigarettes per day: 10.0 Years smoked: 45 Smoking pack-years: 22.50 Smoking status: Current every day smoker Tobacco type: cigarettes Second hand tobacco smoke exposure: No Smoking end date: 03/30/20 Alcohol intake: former Drinks per week: 18 Substance use: never Substance use type: does not use Last use: Quit drinking alcohol 18 months ago Gender identity (if verbalized by the patient): Male Spiritual care concerns: No Agree to blood products: Yes Exam Const: General: no acute distress and alert Orientation/consciousness: patient oriented x3 Limitations: No altered mental status HENMT: Head: normal to inspection Other: atraumatic Eyes: Conjunctivae: conjunctivae normal Pupils: Equal, round and reactive pupils present Neck: Neck: normal visual inspection Chest: Chest palpation & inspection: normal inspection of the chest Resp: Effort & Inspection: normal respiratory effort, not labored, not tachypneic and no use of accessory muscles Auscultation: clear to auscultation bilaterally Cardio: Rate: regular rate Rhythm: regular rhythm Heart sounds: no murmurs Skin: General
[2021-02-11 20:16] VITALS: BP 165/53; PULSE 79; RESP 20; TEMP 36.9; O2SAT 98
[2021-02-11 20:25] LABS: INR 0.9; Prothrombin Time 10.1 Seconds (9.50-12.10)
[2021-02-11 20:37] LABS: Band Neutrophils Percent 0 % (0-6); Basophils Percent Manual 3 % (0-1); Eosinophils Absolute Manual 0.61 K/mm3 (0.02-0.5); Eosinophils Percent Manual 9 % (1-6); Lymphocytes Absolute Manual 1.97 K/mm3 (1.1-4.5); Lymphocytes Percent Manual 29 % (18-44); Monocytes Absolute Manual 0.61 K/mm3 (0.1-0.90); Monocytes Percent Manual 9 % (3-9); Neutrophils Absolute Manual 5.44 K/mm3 (1.3-6.7); Neutrophils Percent Manual 80 % (46-73); Platelet Estimate Adequate (Adequate)
[2021-02-11 20:38] LABS: Alanine Aminotransferase 27 U/L (16-63); Albumin Level 3.3 g/dL (3.4-5.0); Alkaline Phosphatase 62 U/L (46-116); Anion Gap 11 mmol/L (8-16); Aspartate Amino Transferase 16 U/L (15-37); Bilirubin,Total 0.3 mg/dL (0.00-1.00); Blood Urea Nitrogen 17 mg/dL (7-18); Calcium 8.7 mg/dL (8.5-10.1); Carbon Dioxide 28 mmol/L (21-32); Chloride 106 mmol/L (98-108); Estimated CRCL calculation 45 ml/min; Estimated Glomerular Filt Rate 56; Glucose 95 mg/dL (70-99); NT Pro B Type Natriuretic Pept 81 pg/mL (0-125); Osmolality Calculated 301 mOsm/kg (285-295); Potassium 4.1 mmol/L (3.5-5.1); Sodium 145 mmol/L (136-145); Total Protein 6.8 g/dL (6.4-8.2)
[2021-02-11 20:39] LABS: Troponin I < 4.0 ng/L (0.00-60.4)
[2021-02-11 20:40] VITALS: BP 159/80; PULSE 77; RESP 20; TEMP 36.9; O2SAT 95
[2021-02-11 21:03] VITALS: BP 165/53; PULSE 79; RESP 20; TEMP 36.9; O2SAT 98
== END 2021-02-11 20:50 | disposition home or self-care (01) ==
PROVIDERS: Emergency Provider Family Medicine; PCP Family Medicine
DX: F41.9 Anxiety disorder, unspecified (principal); J44.9 Chronic obstructive pulmonary disease, unspecified; I10 Essential (primary) hypertension; F17.200 Nicotine dependence, unspecified, uncomplicated
CPT/HCPCS: 36415; 71045; 80053; 83880; 84484; 85025; 85610; 93005; 99283; 99284; A9270

== ENCOUNTER 2021-02-15 17:01 | Emergency (ER) | payer MEDICARE, OTHER, SELFPAY ==
--- NOTE | ~2021-02-15 | XR_ITS ---
EXAMINATION: XR chest 2V DATE: 02/15/2021 17:53 INDICATION: Shortness of breath TECHNIQUE: PA and lateral views of the chest are obtained. COMPARISON: 02/11/2021 FINDINGS: The lungs are hyperinflated but free of acute opacities. There is no pleural effusion or pn eumothorax. The cardiomediastinal silhouette is normal. There is mild thoracic spondylosis. An old ri ght rib fracture is noted. Calcified pulmonary nodules are consistent with old granulomatous disease. IMPRESSION: 1. Hyperinflation without acute cardiopulmonary abnormality. Reviewed, dictated and finalized at location A.
--- NOTE | 2021-02-15 17:07 | ED.SOB ---
HPI - SOB/Dyspnea General Chief Complaint: Shortness of Breath/Dyspnea Stated Complaint: copd trouble breathing Time Seen by Provider: 02/15/21 17:02 Source: patient and RN notes reviewed Mode of arrival: ambulatory Limitations: no limitations History of Present Illness HPI Narrative: Patient states that he has been having increasing shortness of breath over the last 2 days. Says he feels like his heart is racing. Denies any chest pain. Has long history of COPD. Was seen here for same symptoms 5 days ago and diagnosed with anxiety given 5 days of lorazepam. He is not taking any of his anti anxiety pills today. He continues to smoke though he says he did not smoke today. Denies nausea vomiting, fever chills, cough. Patient has been vaccinated for COVID. MD elicited complaint: shortness of breath Pertinent past history: COPD Onset (ago): day(s) (2) Context: anxiety Timing: constant Severity: moderate Exacerbating factors: stress Relieving factors: nothing Associated symptoms: palpitations Treatment prior to arrival: none Related Data Home oxygen amount: none Home Medications Medication Instructions Recorded Confirmed folic acid 1 mg PO DAILY 06/06/19 02/15/21 tiotropium bromide [Spiriva with 1 cap INHALATION DAILY 08/20/20 02/15/21 HandiHaler] citalopram 10 mg PO DAILY 12/23/20 02/15/21 Allergies Allergy/AdvReac Type Severity Reaction Status Date / Time No Known Allergies Allergy Verified 12/23/20 21:08 Review of Systems Review of Systems: All systems reviewed & are unremarkable except as noted in HPI and below Constitutional: Constitutional: Denies chills and Denies fever(s) Cardiovascular: Cardiovascular: Denies chest pain Respiratory: Respiratory: Denies cough and Denies wheezing Gastrointestinal: Gastrointestinal: Denies nausea and Denies vomiting Neurologic: Denies dizziness and Denies syncope [facility] Past Medical History Medical History COPD (chronic obstructive pulmonary disease) Depression HTN (hypertension) Light-headedness Tobacco dependence Vertigo Surgical History Surgical History No significant past surgical history Family History Family History Mother CAD (coronary artery disease) Chronic obstructive pulmonary disease Father Blood clot in vein Social History Social History Smoking packs per day: 0.5 Smoking cigarettes per day: 10.0 Years smoked: 45 Smoking pack-years: 22.50 Smoking status: Current every day smoker Tobacco type: cigarettes Second hand tobacco smoke exposure: No Smoking end date: 03/30/20 Alcohol intake: former Drinks per week: 18 Substance use: never Substance use type: does not use Last use: Quit drinking alcohol 18 months ago Gender identity (if verbalized by the patient): Male Spiritual care concerns: No Agree to blood products: Yes Exam Const: General: no acute distress, alert and ill appearing chronically; No diaphoretic Nutritional Appearance: well nourished and thin Orientation/consciousness: patient oriented x3 HENMT: Head: normal to inspection Ears: external ears normal Face and sinus: normal facial exam Mouth: Yes moist mucous membranes Eyes: Conjunctivae: conjunctivae normal Pupils: Equal, round and reactive pupils present EOM: EOMs intact bilaterally Neck: Neck: normal visual inspection Resp: Effort & Inspection: normal respiratory effort Auscultation: clear to auscultation bilaterally, no rales, no rhonchi, no wheezes and diminished lung sounds ( short air exchange) diffuse Cardio: Rate: regular rate Rhythm: regular rhythm GI: GI Palp: Yes Soft to palpation and No Tenderness to palpation present (GI) Auscultation: normal bowel sounds Back/Spine/Pelvis: Cervical Spine: cervical
[2021-02-15 17:10] VITALS: BP 154/88; PULSE 98; RESP 18; TEMP 36.9; O2SAT 96
--- NOTE | 2021-02-15 17:26 | ECG_ITS ---
Measurements Intervals [place] Rate: 93 P: 83 OR: 169 QRS: 69 QRSD: 84 T: 77 QT: 348 QTc: 433 Interpretive Statements SINUS RHYTHM FREQUENT ATRIAL PREMATURE COMPLEXES BASELINE ARTIFACT- I, II, III, AVR, AVL,A VF, V4-V6 ABNORMAL ECG Electronically Signed On 02-16-2021 11:13:08 CDT by Brock Seymour D.O.
[2021-02-15] MEDS: LORazepam (*CRX) 1 MG TABLET PO (17:29)
[2021-02-15 18:02] LABS: Hematocrit 40.5 % (37.0-46.0); Hemoglobin 13.5 g/dL (12.4-15.3); Mean Corpuscular HGB Conc 33.3 g/dL (32.0-36.0); Mean Corpuscular Hemoglobin 30.6 pg (27.0-31.0); Mean Corpuscular Volume 91.8 fL (78.0-102.0); Mean Platelet Volume 8.7 fl (8.7-11.0); Platelet Count Result 260 K/mm3 (150-420); Red Blood Count 4.41 M/mm3 (4.70-6.10); Red Cell Distribution Width 12.8 % (11.6-14.4); White Blood Count 7.2 K/mm3 (4.8-10.8)
[2021-02-15 18:17] LABS: Alanine Aminotransferase 23 U/L (16-63); Albumin Level 3.5 g/dL (3.4-5.0); Alkaline Phosphatase 68 U/L (46-116); Anion Gap 11 mmol/L (8-16); Aspartate Amino Transferase 19 U/L (15-37); Bilirubin,Total 0.5 mg/dL (0.00-1.00); Blood Urea Nitrogen 15 mg/dL (7-18); Calcium 8.7 mg/dL (8.5-10.1); Carbon Dioxide 27 mmol/L (21-32); Chloride 105 mmol/L (98-108); Estimated CRCL calculation 43 ml/min; Estimated Glomerular Filt Rate 54; Glucose 98 mg/dL (70-99); Magnesium 1.9 mg/dL (1.8-2.4); Osmolality Calculated 296 mOsm/kg (285-295); Potassium 4.3 mmol/L (3.5-5.1); Sodium 143 mmol/L (136-145); Total Protein 7.1 g/dL (6.4-8.2)
[2021-02-15 18:27] LABS: Band Neutrophils Percent 0 % (0-6); Basophils Absolute Manual 0.14 K/mm3 (0-0.1); Basophils Percent Manual 2 % (0-1); Eosinophils Absolute Manual 0.64 K/mm3 (0.02-0.5); Eosinophils Percent Manual 9 % (1-6); Lymphocytes Absolute Manual 2.66 K/mm3 (1.1-4.5); Lymphocytes Percent Manual 37 % (18-44); Monocytes Absolute Manual 0.28 K/mm3 (0.1-0.90); Monocytes Percent Manual 4 % (3-9); Neutrophils Absolute Manual 3.45 K/mm3 (1.3-6.7); Neutrophils Percent Manual 48 % (46-73); Total Cells Counted 100
[2021-02-15 18:28] LABS: Platelet Estimate Adequate (Adequate)
[2021-02-15 18:40] VITALS: BP 147/78; PULSE 97; RESP 15; TEMP 36.6; O2SAT 95
== END 2021-02-15 18:41 | disposition home or self-care (01) ==
PROVIDERS: Emergency Provider Emergency Medicine; PCP Family Medicine
DX: I49.3 Ventricular premature depolarization (principal); J44.9 Chronic obstructive pulmonary disease, unspecified; I10 Essential (primary) hypertension; F17.200 Nicotine dependence, unspecified, uncomplicated
CPT/HCPCS: 36415; 71046; 80053; 83735; 85025; 93005; 99284; A9270

== ENCOUNTER 2021-02-17 12:46 | Emergency (ER) | payer MEDICARE, OTHER, SELFPAY ==
[2021-02-17] VITALS (9 sets, daily range): BP systolic 141–144; BP diastolic 68–102; PULSE 96–107; RESP 16–21; TEMP 36.4; O2SAT 92–97
--- NOTE | ~2021-02-17 | XR_ITS ---
EXAMINATION: XR chest 2V DATE: 02/17/2021 13:29 INDICATION: Shortness of breath TECHNIQUE: PA and lateral views of the chest are obtained. COMPARISON: 02/15/2021 FINDINGS: The lungs are hyperinflated but free of acute opacities. There is scarring of the lung apic es. There is no pleural effusion or pneumothorax. The cardiomediastinal silhouette is normal. There i s mild thoracic spondylosis. IMPRESSION: 1. Hyperinflation without acute cardiopulmonary abnormality. Reviewed, dictated and finalized at location A.
--- NOTE | 2021-02-17 13:06 | ECG_ITS ---
Measurements Intervals [place] Rate: 106 P: 88 MD: 155 QRS: 73 QRSD: 87 T: 73 QT: 325 QTc: 433 Interpretive Statements SINUS TACHYCARDIA ATRIAL PREMATURE COMPLEX BORDERLINE ST ABNORMALITY- INF/LAT LEADS BASELINE ARTIFACT- I, II, III, AVR, AVL, AVF, V1, V3-V6 ABNORMAL ECG Electronically Signed On 02-17-2021 13:13:21 CDT by Brock Seymour D.O.
[2021-02-17] MEDS: methylPREDNISolone SOD SUCC 125 MG VIAL IV PUSH (13:17)
[2021-02-17] MEDS: ALBUTEROL SULFATE NEB 2.5 MG/0.5 ML INH 5 MG INHALATION ×3 (13:45→14:08)
[2021-02-17] MEDS: IPRATROPIUM BR 0.02% INH SOLN 0.5 MG/2.5 ML VIAL INHALATION ×3 (13:45→14:08)
[2021-02-17 13:54] LABS: Basophils Absolute Auto 0.1 K/mm3 (0.0-0.1); Basophils Percent Auto 0.8 % (0.2-1.2); Eosinophils Absolute Auto 0.9 K/mm3 (0-0.3); Eosinophils Percent Auto 9.1 % (0-4.4); Hematocrit 41.2 % (42.0-52.0); Hemoglobin 13.4 g/dL (14.0-18.0); Immature Granulocyte Absolute 0.02 K/mm3 (0.00-0.031); Immature Granulocyte Percent A 0.2 % (0-0.5); Lymphocytes Absolute Auto 1.99 K/mm3 (0.9-3.2); Lymphocytes Percent Auto 19.2 % (18.3-44.2); Mean Corpuscular HGB Conc 32.5 g/dl (32-36); Mean Corpuscular Hemoglobin 29.8 pg (26-34); Mean Corpuscular Volume 91.8 fl (80-100); Mean Platelet Volume 8.9 fl (7.4-10.4); Monocytes Absolute Auto 0.7 K/mm3 (0.1-0.6); Monocytes Percent Auto 6.8 % (2.6-8.5); Neutrophils Absolute Auto 6.6 K/mm3 (1.3-6.7); Neutrophils Percent Auto 63.9 % (45.5-73.1); Platelet Count Result 286 k/mm3 (150-375); Red Blood Count 4.49 M/mm3 (4.6-6.20); White Blood Count 10.3 K/mm3 (4.5-10.0)
[2021-02-17 14:05] LABS: Alanine Aminotransferase 15 U/L (4-50); Albumin Level 4.2 g/dL (3.5-5.1); Alkaline Phosphatase 72 U/L (38-126); Anion Gap 10 mmol/L (8-16); Aspartate Amino Transferase 25 U/L (17-59); Bilirubin,Total 0.6 mg/dL (0.2-1.3); Blood Urea Nitrogen 14 mg/dL (9-20); Calcium 9.2 mg/dL (8.4-10.2); Carbon Dioxide 24 mmol/L (22-30); Chloride 104 mmol/L (98-107); Estimated CRCL calculation 47 ml/min; Estimated Glomerular Filt Rate 60; Glucose 99 mg/dL (65-110); Potassium 4.2 mmol/L (3.4-5.0); Sodium 138 mmol/L (137-145)
--- NOTE | 2021-02-17 14:56 | ED.SOB ---
HPI - SOB/Dyspnea General Chief Complaint: Shortness of Breath/Dyspnea Stated Complaint: SOB Time Seen by Provider: 02/17/21 13:01 History of Present Illness HPI Narrative: 65-year-old male presents with shortness of breath. Reports longstanding history of COPD and still smokes. Over the past 1 to 2 weeks he has had increased shortness of breath and increased from his baseline cough. He called the ambulance due to difficulty breathing and came in for evaluation. Reports he had a DuoNeb in route and is already starting to feel improved. Denies fever, changes in p.o., focal areas of pain such as chest pain or abdominal pain. Symptoms are similar to his prior COPD exacerbations Related Data Home Medications Medication Instructions Recorded Confirmed folic acid 1 mg PO DAILY 06/06/19 02/15/21 tiotropium bromide [Spiriva with 1 cap INHALATION DAILY 08/20/20 02/15/21 HandiHaler] citalopram 10 mg PO DAILY 12/23/20 02/15/21 Allergies Allergy/AdvReac Type Severity Reaction Status Date / Time No Known Allergies Allergy Verified 02/17/21 13:03 Review of Systems Review of Systems: CONSTITUTIONAL: Denies fever, chills, or sweats. EYES: Denies visual changes, redness, or discharge. ENT: Denies rhinorrhea, congestion, sore throat, or otalgia. CARDIOVASCULAR: Denies chest pain, palpitations, or edema. RESPIRATORY: Reports cough and shortness of breath GASTROINTESTINAL: Denies abdominal pain, nausea, vomiting, or diarrhea. GENITOURINARY: Denies dysuria or hematuria. SKIN: Denies rash or itching. MUSCULOSKELETAL: Denies back pain, joint pain, or myalgia. NEUROLOGIC: Denies headache, numbness, dizziness, or weakness. PSYCHIATRIC: Denies anxiety or depression. All systems reviewed & are unremarkable except as noted in HPI and below [facility] Past Medical History Medical History COPD (chronic obstructive pulmonary disease) Depression HTN (hypertension) Light-headedness Tobacco dependence Vertigo Surgical History Surgical History No significant past surgical history Family History Family History Mother CAD (coronary artery disease) Chronic obstructive pulmonary disease Father Blood clot in vein Social History Social History Smoking packs per day: 0.5 Smoking cigarettes per day: 10.0 Years smoked: 45 Smoking pack-years: 22.50 Smoking status: Current every day smoker Tobacco type: cigarettes Second hand tobacco smoke exposure: No Smoking end date: 03/30/20 Alcohol intake: former Drinks per week: 18 Substance use: never Substance use type: does not use Last use: Quit drinking alcohol 18 months ago Gender identity (if verbalized by the patient): Male Spiritual care concerns: No Agree to blood products: Yes Exam Narrative: GENERAL: Well-appearing, well-nourished, and in no acute distress. HEAD: Normocephalic, atraumatic. EYES: PERRLA and EOMI. ENT: Nares clear, no rhinorrhea or epistaxis. Mucous membranes moist. NECK: Supple. No adenopathy or masses. No JVD CHEST: Very diminished aeration in all lung [place] HEART: Regular rate and rhythm. No murmur heard. Normal peripheral pulses. ABDOMEN: Soft, nontender, nondistended, normal active bowel sounds. EXTREMITIES: Normal range of motion. No edema. SKIN: Warm, dry, no rash. NEURO: No focal deficits. Alert and oriented x3. PSYCH: Normal mood and affect. Course Reevaluation(s) Reevaluation #1: But reports feeling much improved and feel like he can manage his symptoms at home vital signs remained stable repeat lung exam is with increased aeration Date: 02/17/21 Time: 14:56 Vital Signs Vital signs: Vital Signs Temperature 36.4 C L 02/17/21 12:55 Pulse Rate 107 H 02/17/21 12:55 Respiratory Rate 19 02/17/21 12:55 B
== END 2021-02-17 15:40 | disposition home or self-care (01) ==
PROVIDERS: Emergency Provider Emergency Medicine; PCP Family Medicine
DX: J44.1 Chronic obstructive pulmonary disease with (acute) exacerbation (principal); R00.0 Tachycardia, unspecified; F32.9 Major depressive disorder, single episode, unspecified; I10 Essential (primary) hypertension; F17.210 Nicotine dependence, cigarettes, uncomplicated
CPT/HCPCS: 36415; 71046; 80053; 85025; 93005; 94640; 96374; 99284; J2930

== ENCOUNTER 2021-06-02 12:32 | Outpatient (CLI) | payer MEDICARE, OTHER, MEDICAID, SELFPAY ==
--- NOTE | 2021-06-02 16:25 | P.PCNPFT_ITS ---
PFT Procedure Performed PFT Procedure Performed Spirometry with Pre/Post Bronchodilator Plethysmography (Lung Vol) Diffusing Cap (DLCO) Flow Vol Loop PFT Interpretation This is a pulmonary function test with pre and post-bronchodilator spirometry, plethysmography and diffusing capacity. The test was performed and results interpreted in accordance with the 2019 and 2005 ATS/ERS Task Force guidelines respectively using the Global Lung Function Initiative-2012 reference equations. Patient demonstrated good effort and cooperation. Reproducibility criteria were met. The quality of the pre bronchodilator spirometry maneuver was Grade A and post bronchodilator spirometry maneuver was Grade A. Findings: Spirometry: There is decreased maximal expiratory airflow at all lung volumes with concave expiratory flow tracing. The contour of the inspiratory flow tracing is normal. The pre bronchodilator FVC is 3.77 L, 81% predicted. The pre bronchodilator FEV1 is 2.08 L, 59% predicted. The FEV1: FVC ratio is 55%. The post bronchodilator FVC is 3.89 L, representing a 3% increase. The post bronchodilator FEV1 is 2.08 L, representing no change. Plethysmography: The total lung capacity is 8.01 L, 108% predicted. Functional residual capacity is 5.80 L, 147% predicted. The residual volume is 4.23 L, 169% predicted. Diffusing capacity: The absolute diffusion capacity is 16.2, 59% predicted. The diffusing capacity corrected for alveolar volume is 2.90, 74% predicted. Impression: There is a moderately severe obstructive abnormality without significant improvement after inhaling a single dose of albuterol. The increase in residual volume is consistent with air trapping from an obstructive abnormal ity. Hyperinflation is present is demonstrated by the increase in functional residual capacity and is consistent with an obstructive abnormality. The absolute diffusing capacity is moderately decreased and normalizes when corrected for alveolar volume. There are no prior studies for comparison
== END 2021-06-02 12:33 | disposition home or self-care (01) ==
LOC: ANHPFT 12:39
PROVIDERS: PCP Family Medicine; Visit Provider Internal Medicine Pulmonary Disease
DX: R06.00 Dyspnea, unspecified (principal); R94.2 Abnormal results of pulmonary function studies
CPT/HCPCS: 94060; 94726; 94729

== ENCOUNTER 2021-07-23 12:40 | Outpatient (CLI) | payer MEDICARE, MEDICAID, SELFPAY ==
--- NOTE | 2021-07-27 20:53 | WPDSIXMINUTE ---
Six Minute Walk Procedure Procedure Performed Pulmonary Stress Test (6 min walk) Six Minute Walk Six Minute Walk: DOS: 07/23/2021 REQUESTING: Dr Treviño REASON FOR TESTING: Exertion on dyspnea SIX MINUTE WALK This study was conducted per ATS guidelines. The initial saturation was 95% on room air and the pulse was 72. The patient walked while breathing room air, and the saturation remained 94% to 96%. Pulse increased from 72-160. The pulse varied throughout the study. At the end of recovery saturation was 95% and pulse was 74. The patient walked a total of 650 ft/198 meters. He did not stop to rest. He complained of back pain at the end of the walk. IMPRESSION: No supplemental oxygen required with exertion. Distance walked is less than expected for his age.
== END 2021-07-23 12:41 | disposition home or self-care (01) ==
LOC: ANHIMG 12:41
PROVIDERS: PCP Family Medicine; Visit Provider Internal Medicine Pulmonary Disease
DX: J40 Bronchitis, not specified as acute or chronic (principal); Z72.0 Tobacco use
CPT/HCPCS: 94618

== ENCOUNTER 2021-09-23 08:04 | Observation (INO) | payer MEDICARE, OTHER, MEDICAID, SELFPAY ==
[2021-09-23] VITALS (21 sets, daily range): BP systolic 108–141; BP diastolic 56–115; PULSE 47–154; RESP 17–20; TEMP 36.6–37.2; O2SAT 94–97; BMI 21.0
--- NOTE | 2021-09-23 08:11 | ED.ARRPALP ---
HPI - Arrhythmia/Palpitations General Chief Complaint: Arrhythmia/Palpitations Stated Complaint: AMBULANCE Time Seen by Provider: 09/23/21 08:12 Source: patient and family Mode of arrival: ambulatory Limitations: no limitations History of Present Illness complaint: rapid heart beat and heart racing Onset (ago): hour(s) (3) Duration: constant Severity: moderate Context: occurred during rest Arrhythmia history: atrial fibrillation Associated symptoms: shortness of breath Related Data Home Medications Medication Instructions Recorded Confirmed folic acid 1 mg PO DAILY 06/06/19 09/23/21 albuterol sulfate 2.5 mg INHALATION Q4-6H PRN 09/23/21 09/23/21 benzonatate 100 mg PO Q8H PRN 09/23/21 09/23/21 pjyeeykbdh-pmkqizfo-wkfqegmgku 160 inh INHALATION DAILY 09/23/21 09/23/21 [[address] Aerosphere] citalopram 20 mg PO DAILY 09/23/21 09/23/21 loratadine 10 mg PO DAILY 09/23/21 09/23/21 Allergies Allergy/AdvReac Type Severity Reaction Status Date / Time No Known Allergies Allergy Verified 09/23/21 08:13 Review of Systems Review of Systems: All systems reviewed & are unremarkable except as noted in HPI and below PMFSH Past Medical History Medical History COPD (chronic obstructive pulmonary disease) Depression HTN (hypertension) Light-headedness Tobacco dependence Vertigo Surgical History Surgical History No significant past surgical history Family History Family History Mother CAD (coronary artery disease) Chronic obstructive pulmonary disease Father Blood clot in vein Social History Social History Smoking packs per day: 0.5 Smoking cigarettes per day: 10.0 Years smoked: 45 Smoking pack-years: 22.50 Smoking status: Current every day smoker Tobacco type: cigarettes Second hand tobacco smoke exposure: No Smoking end date: 03/30/20 Alcohol intake: former Drinks per week: 18 Substance use: never Substance use type: does not use Last use: Quit drinking alcohol 18 months ago Gender identity (if verbalized by the patient): Male Sexual Orientation (if Verbalized by the Patient): Straight or Heterosexual Spiritual care concerns: No Agree to blood products: Yes Exam Const: General: healthy appearing, no acute distress and alert Nutritional Appearance: well nourished Orientation/consciousness: patient oriented x3 HENMT: Head: normal to inspection Ears: external ears normal Mouth: Yes moist mucous membranes Eyes: Conjunctivae: conjunctivae normal Pupils: Equal, round and reactive pupils present EOM: EOMs intact bilaterally Neck: Neck: normal visual inspection Resp: Effort & Inspection: normal respiratory effort Auscultation: clear to auscultation bilaterally Cardio: Rate: tachycardic Rhythm: abnormal rhythm irregularly irregular GI: GI Palp: Yes Soft to palpation, No Tenderness to palpation present (GI) and No Guarding due to palpation present (GI) Auscultation: normal bowel sounds Back/Spine/Pelvis: Cervical Spine: cervical ROM normal Thoracic/Lumbar Spine: thoraco-lumbar ROM normal Skin: General skin exam: normal color Rashes: no rashes Neuro: General: patient oriented x3, moves all extremities, no meningeal signs, no focal motor deficits and CN's II-XI intact bilaterally Speech: normal speech Gait exam (Neuro): Normal gait present Extrem: General: normal to inspection and no clubbing, cyanosis or edema Psych: Appearance: grossly normal and well kempt Mental Status: mental status grossly normal Affect: normal affect Attitude: cooperative Thought content: Yes Normal thought content present Course Course Emergency Course: Patient given 20 mg of Cardizem IV push and then started on a 10 mg drip of Cardizem. He quickly had improvement in hi
--- NOTE | 2021-09-23 08:13 | ECG_ITS ---
Measurements Intervals [place] Rate: 148 P: MN: 0 QRS: 76 QRSD: 82 T: 11 QT: 272 QTc: 427 Interpretive Statements ATRIAL FIBRILLATION WITH RAPID VENTRICULAR RESPONSE MINIMAL VOLTAGE CRITERIA FOR LVH, CONSIDER NORMAL VARIANT [MEETS CRITERIA IN ONE OF: R(aVL), S(V1), R(V5), R(V5/V6)+S(V1)] NONSPECIFIC ST ABNORMALITY ABNORMAL ECG COMPARED TO ECG 02/17/2021 12:52:41 ATRIAL FIBRILLATION NOW PRESENT Electronically Signed On 09-23-2021 13:05:04 FEED MIXER HELPER by Hudson Luo M.D.
[2021-09-23] MEDS: dilTIAZem HCl INJ 25 MG/5 ML VIAL 20 MG IV PUSH (08:27)
[2021-09-23] MEDS: dilTIAZem 100 MG/100 ML 100 MG/100 ML BAG 10 MG IV CONT (08:29)
[2021-09-23 08:35] LABS: Basophils Absolute Auto 0.09 K/mm3 (0.00-0.10); Basophils Percent Auto 0.8 % (0.0-1.0); Eosinophils Absolute Auto 0.52 K/mm3 (0.02-0.50); Eosinophils Percent Auto 4.4 % (1.0-6.0); Hematocrit 41.2 % (37.0-46.0); Immature Granulocyte Absolute 0.05 K/mm3 (0.00-0.00); Immature Granulocyte Percent A 0.4 % (0.0-0.0); Lymphocytes Percent Auto 14.4 % (18.0-42.0); Mean Corpuscular Hemoglobin 30.8 pg (27.0-31.0); Mean Corpuscular Volume 90.5 fL (78.0-102.0); Mean Platelet Volume 9.4 fl (8.7-11.0); Monocytes Absolute Auto 0.81 K/mm3 (0.10-0.90); Monocytes Percent Auto 6.9 % (2.0-11.0); Neutrophils Absolute Auto 8.7 K/mm3 (1.7-7.2); Neutrophils Percent Auto 73.1 % (50.0-70.0); Platelet Count Result 295 K/mm3 (150-420); Red Blood Count 4.55 M/mm3 (4.70-6.10); Red Cell Distribution Width 14.3 % (11.6-14.4); White Blood Count 11.8 K/mm3 (4.8-10.8)
[2021-09-23 08:45] LABS: INR 0.9; Prothrombin Time 9.9 Seconds (9.50-12.10)
[2021-09-23 09:03] LABS: Alanine Aminotransferase 20 U/L (16-63); Albumin Level 3.4 g/dL (3.4-5.0); Alkaline Phosphatase 70 U/L (46-116); Anion Gap 11 mmol/L (8-16); Aspartate Amino Transferase 15 U/L (15-37); Bilirubin,Total 0.2 mg/dL (0.00-1.00); Blood Urea Nitrogen 15 mg/dL (7-18); Calcium 8.9 mg/dL (8.5-10.1); Carbon Dioxide 23 mmol/L (21-32); Chloride 108 mmol/L (98-108); Estimated CRCL calculation 51 ml/min; Estimated Glomerular Filt Rate > 60; Glucose 103 mg/dL (70-99); NT Pro B Type Natriuretic Pept 429 pg/mL (0-125); Osmolality Calculated 294 mOsm/kg (285-295); Potassium 4.3 mmol/L (3.5-5.1); Sodium 142 mmol/L (136-145); Total Protein 7.2 g/dL (6.4-8.2); Troponin I 10.5 ng/L (0.00-60.4)
[2021-09-23 09:04] LABS: Thyroid Stimulating Hormone 2.41 uIU/mL (0.36-3.74)
[2021-09-23 10:01] LABS: Amphetamine Screen Urine Negative (Negative); Barbiturate Screen Urine Negative (Negative); Benzodiazepines Screen Urine Negative (Negative); Cannabinoid Screen Urine Negative (Negative); Cocaine Screen Urine Negative (Negative); Methadone Screen Urine Negative (Negative); Opiate Screen Urine Negative (Negative); Phencyclidine Screen Urine Negative (Negative)
--- NOTE | 2021-09-23 11:54 | ECG_ITS ---
Measurements Intervals [place] Rate: 83 P: SC: 0 QRS: 75 QRSD: 92 T: -8 QT: 356 QTc: 420 Interpretive Statements ATRIAL FLUTTER/TACHYCARDIA WITH VARIABLE AV BLOCK LEFT VENTRICULAR HYPERTROPHY AND ST-T CHANGE [VOLTAGE CRITERIA PLUS ST/T ABNORMALITY] POSSIBLE ANTERIOR MYOCARDIAL INFARCTION , OF INDETERMINATE AGE [30 ms Q WAVE IN V3/V4, OR R < 0.2 mV IN V4] ABNORMAL ECG COMPARED TO ECG 09/23/2021 08:18:09 ATRIAL FLUTTER NOW PRESENT Electronically Signed On 09-23-2021 13:05:43 WAXING MACHINE OPERATOR by Hudson Luo M.D.
--- NOTE | 2021-09-23 12:05 | ADMGEN ---
This patient, Karan Sexton, was admitted to 2nd Floor Room 204-2. Patient/family oriented to hospital policies and general routines including ID bracelet, bed and alarms, visiting hours, pain management, procedures, bathroom and other care routines, personal items, smoking policy, room service/diet, and visiting hours. Information on how to activate the Rapid Response Team has been discussed. Patient/Family are encouraged to report perceived risks to care and to ask questions if they do not understand what they are told or what they should do.
[2021-09-23] MEDS: METOPROLOL TARTRATE 25 MG TABLET PO (12:22)
--- NOTE | 2021-09-23 14:33 | ECG_ITS ---
Measurements Intervals [place] Rate: 60 P: 75 IA: 168 QRS: 56 QRSD: 96 T: 69 QT: 406 QTc: 407 Interpretive Statements SINUS RHYTHM POSSIBLE LEFT ATRIAL ENLARGEMENT [-0.1mV P-WAVE IN V1/V2] BORDERLINE ECG COMPARED TO ECG 09/23/2021 12:20:11 SINUS RHYTHM NOW PRESENT Electronically Signed On 09-23-2021 16:42:58 ELECTROSTATIC POWDER COATING TECHNICIAN by Hudson Luo M.D.
[2021-09-23] MEDS: BENZONATATE 100 MG CAPSULE PO (16:25)
[2021-09-23] MEDS: METOPROLOL TARTRATE 50 MG TAB PO (21:12)
[2021-09-23] MEDS: APIXABAN 2.5 MG TABLET 5 MG PO (21:13)
[2021-09-23] MEDS: BUDESONIDE/FORMOTEROL 80/4.5 MCG 6.9 GM INHALER (*SP) 2 PUFF INHALATION (21:13)
[2021-09-24 04:00] VITALS: BP 127/73; PULSE 58; PULSE 60; RESP 18; TEMP 37.2; O2SAT 96
[2021-09-24 05:03] LABS: Hematocrit 40.1 % (37.0-46.0); Hemoglobin 13.2 g/dL (12.4-15.3); Mean Corpuscular HGB Conc 32.9 g/dL (32.0-36.0); Mean Corpuscular Hemoglobin 30.1 pg (27.0-31.0); Mean Corpuscular Volume 91.6 fL (78.0-102.0); Mean Platelet Volume 9.4 fl (8.7-11.0); Platelet Count Result 274 K/mm3 (150-420); Red Blood Count 4.38 M/mm3 (4.70-6.10); Red Cell Distribution Width 14.4 % (11.6-14.4); White Blood Count 10.5 K/mm3 (4.8-10.8)
[2021-09-24 05:13] LABS: Anion Gap 9 mmol/L (8-16); Blood Urea Nitrogen 19 mg/dL (7-18); Calcium 8.5 mg/dL (8.5-10.1); Carbon Dioxide 26 mmol/L (21-32); Chloride 108 mmol/L (98-108); Estimated CRCL calculation 45 ml/min; Estimated Glomerular Filt Rate 52; Glucose 96 mg/dL (70-99); Osmolality Calculated 298 mOsm/kg (285-295); Potassium 4.1 mmol/L (3.5-5.1); Sodium 143 mmol/L (136-145)
[2021-09-24 07:47] VITALS: BP 142/70; PULSE 70; RESP 20; TEMP 36.9; O2SAT 95
[2021-09-24 07:58] VITALS: PULSE 70
--- NOTE | 2021-09-24 08:32 | PM.SD2 ---
Same Day Admit/Disch: HPI History of Present Illness Chief complaint: AFIB WITH RVR Narrative: Karan Sexton is a 65 year old male that presented to ED with complaints of a racing heart. Patient has a past medical history of COPD, depression, palpitations hypertension, lightheadedness, tobacco dependency and vertigo. According to patient at approximately 5 AM he started to experiencing chest palpitations without activity. Patient notes that he has a history of palpitation but they usually resolves on it own. Patient notes that his palpitations did not resolve so he proceeded to our emergency department. The patient denies SOB, extremity numbness, lightheadedness, dizziness, constipation, diarrhea, chills, or fever. On admission patient EKG A. fib with RVR with a heart rate of 148 patient placed on a Cardizem drip at 10 mg/h and given Cardizem 20 mg IV push. Upon arrival to our floor patient remained in A. fib with RVR. Called to patient's primary care physician Dr. Vargas agrees that patient should be placed on anticoagulant and his metoprolol should be increased to 50 mg twice daily. Today this day of discharge patient have converted to sinus rhythm with a heart rate of 60. Patient educated on the importance of fall prevention with the use of Eliquis and informed that his metoprolol will be increased to control his heart rate. Vital signs 98.4, heart rate 70, 20, 95% on room air, 142/70, WBCs 11.8, heme 14.0, hematocrit 41.2, platelets 295, sodium 142, potassium 4.3, BUN 15, creatinine 1.19, glucose 103, magnesium 2.0, AST 15, ALT 20 troponin 10.5, BUN 429 TSH 2.41, toxicology negative. Patient agrees that he is ready for discharge. [facility] Past Medical History Medical History COPD (chronic obstructive pulmonary disease) Depression HTN (hypertension) Light-headedness Tobacco dependence Vertigo Surgical History Surgical History No significant past surgical history Family History Family History Mother CAD (coronary artery disease) Chronic obstructive pulmonary disease Father Blood clot in vein Social History Social History Smoking packs per day: 0.5 Smoking cigarettes per day: 10.0 Years smoked: 45 Smoking pack-years: 22.50 Smoking status: Current every day smoker Tobacco type: cigarettes Second hand tobacco smoke exposure: No Smoking end date: 03/30/20 Alcohol intake: former Drinks per week: 18 Substance use: never Substance use type: does not use Last use: Quit drinking alcohol 18 months ago Gender identity (if verbalized by the patient): Male Sexual Orientation (if Verbalized by the Patient): Straight or Heterosexual Spiritual care concerns: No Agree to blood products: Yes Same Day Admit/Disch: Med Pre-admit Medications Home Medications Medication Instructions Recorded Confirmed Type folic acid 1 mg PO DAILY 06/06/19 09/23/21 History metoprolol succinate 25 mg 25 mg PO DAILY 30 Days #30 tablet 06/25/21 09/23/21 Rx tablet,extended release 24 hr albuterol sulfate 90 mcg/actuation 2 puff INHALATION Q4H PRN #8.5 g 07/07/21 09/23/21 Rx aerosol inhaler albuterol sulfate 2.5 mg INHALATION Q4-6H PRN 09/23/21 09/23/21 History benzonatate 100 mg PO Q8H PRN 09/23/21 09/23/21 History hnybaqaahp-mbvotaak-wufwezpzqh 160 inh INHALATION DAILY 09/23/21 09/23/21 History [Breztri Aerosphere] citalopram 20 mg PO DAILY 09/23/21 09/23/21 History loratadine 10 mg PO DAILY 09/23/21 09/23/21 History apixaban [Eliquis] 5 mg PO BID #90 tablet 09/24/21 Rx lorazepam [Ativan] 1 mg PO DAILY PRN #20 tablet 09/24/21 Rx metoprolol tartrate 50 mg PO Q12HR #60 tablet 09/24/21 Rx nicotine [Nicoderm CQ] 1 patch TRANSDERMAL QAM #30 ea 09/24/21 Rx Exam Narrative: GENERAL: This is a well-no
[2021-09-24] MEDS: BUDESONIDE/FORMOTEROL 80/4.5 MCG 6.9 GM INHALER (*SP) 2 PUFF INHALATION (08:44)
[2021-09-24] MEDS: APIXABAN 2.5 MG TABLET 5 MG PO (08:45)
[2021-09-24 08:46] VITALS: PULSE 70
[2021-09-24] MEDS: FOLIC ACID 1 MG TABLET PO (08:46)
[2021-09-24] MEDS: METOPROLOL TARTRATE 50 MG TAB PO (08:46)
[2021-09-24] MEDS: CITALOPRAM HYDROBROMIDE 20 MG TABLET PO (08:46)
[2021-09-24] MEDS: LORATADINE 10 MG TABLET PO (08:46)
[2021-09-24] MEDS: NICOTINE (*PBKC) 21 MG PATCH 1 PATCH TRANSDERM (08:51)
--- NOTE | 2021-09-24 10:42 | PC.NURSE ---
1040 daughter here and patient left on his own accord. discharge instructions went over and voices an understanding.
--- NOTE | 2021-09-28 12:48 | PC.NURSE ---
Unable to contact for discharge call back.
== END 2021-09-24 10:40 | disposition home or self-care (01) ==
LOC: CHSED 11:16 → CHS2ND 12:43
PROVIDERS: Nurse Practitioner; Admitting Provider Internal Medicine; Emergency Provider Emergency Medicine; PCP Family Medicine; Visit Provider Internal Medicine
DX: I48.20 Chronic atrial fibrillation, unspecified (principal); J44.9 Chronic obstructive pulmonary disease, unspecified; I10 Essential (primary) hypertension; R42 Dizziness and giddiness; F32.A Depression, unspecified; F17.210 Nicotine dependence, cigarettes, uncomplicated; Z79.899 Other long term (current) drug therapy
CPT/HCPCS: 36415; 80048; 80053; 80307; 83735; 83880; 84443; 84484; 85025; 85027; 85610; 93005; 96365; 96366; 99285; A9270; G0378

== ENCOUNTER 2021-10-02 12:33 | Outpatient (CLI) | payer MEDICARE, OTHER, SELFPAY ==
--- NOTE | 2021-10-02 13:39 | ECHO_ITS ---
Patient Info Name: Karan Sexton Age: 65 years : 1955 Gender: Male Ht: 72 in Wt: 151,145 lbs BSA: 76.30 m2 HR: 93 bpm BP: 147 / 60 mmHg Technical Quality: Good Exam Date: 10/02/2021 12:27 PM Exam Location: [facility] Patient Status: Outpatient Admit Date: 10/02/2021 Staff Ordering Physician: Osito Ramesh DO Machine Rough Rounder: Taryn Thomas Attending Provider: Osito Ramesh DO Referring Physician: Gadiel HEADLEY; Exam Type: CA echo doppler color flow Study Info Indications R00.2 - Palpitations Complete two-dimensional, color flow and Doppler transthoracic echocardiogram is performed. Strain analysis performed. History/Risk Factors Hypertension: Yes Dyslipidemia: No Congenital Heart Disease (CHD): No Peripheral Arterial Disease (PAD): No Myocardial Infarction (LA): No Chronic Lung Disease: No Obesity: No Renal Disease: No Coronary Artery Disease (CAD) No Congestive Heart Failure (CHF): No Cardiomyopathy/LV Systolic Dysfunction: No Date of Last Tobacco Use: 06/06/2019 Diabetes Mellitus: No COPD: No Tobacco Use: Current - Every Day If Any Current, Tobacco Type: Cigarettes If Current - Every Day \T\ Cigarettes, Amount: Light Tobacco Use (<10/day) Cerebrovascular Disease: No Family History: Coronary Artery Disease Deep Vein Thrombosis (DVT): None Dialysis: None Frailty Scale (CSHA): 2: Well Cardiac Arrest: No Prior Interventions Pacemaker: No PCI: No CABG: No Valve Surgery: Yes ICD: No Heart Transplant: No Summary 1. Complete two-dimensional, color flow and Doppler transthoracic echocardiogram is performed. 2. Left ventricular chamber dimension is normal. 3. Left ventricular systolic function is normal, estimated at 60-65%. 4. The left ventricular diastolic function is grade I diastolic dysfunction. 5. E/e' 6 is not elevated. 6. Global longitudinal strain is normal at -19.6%. 7. There is trace aortic valve regurgitation. 8. Mild pulmonary hypertension, estimated pulmonary arterial systolic pressure is 42 mmHg. 9. Dilated inferior vena cava with >50% collapse upon inspiration consistent with elevated right atrial pressure, 10 mmHg. Recommendations * Smoking cessation counseling is recommended for this patient. Left Ventricle E/e' 6 is not elevated. Global longitudinal strain is normal at -19.6%. Left ventricular chamber dimension is normal. Left ventricular systolic function is normal, estimated at 60-65%. The left ventricular diastolic function is grade I diastolic dysfunction. Right Ventricle Right ventricular systolic function is normal and with normal TAPSE 2.5 cm. Right ventricular chamber dimension is normal. Left Atria Left atrial chamber dimension is normal. Right Atria Right atrial chamber dimension is normal. Aortic Valve The aortic valve is trileaflet. There is no aortic valve stenosis. There is trace aortic valve regurgitation. Pulmonic Valve There is no pulmonic regurgitation. Mitral Valve There is no mitral valve stenosis. There is no mitral valve regurgitation. Tricuspid Valve There is no tricuspid valve regurgitation. Mild pulmonary hypertension, estimated pulmonary arterial systolic pressure is 42 mmHg. Pericardium/Pleural There is no pericardial effusion. Inferior Vena Cava Dilated inferior vena cava with >50% collapse upon inspiration consiste
== END 2021-10-02 12:34 | disposition home or self-care (01) ==
LOC: CHSIMG 12:34
PROVIDERS: PCP Family Medicine; Visit Provider Family Medicine
DX: R00.2 Palpitations (principal)
CPT/HCPCS: 93306

== ENCOUNTER 2021-10-26 12:45 | Emergency (ER) | payer MEDICARE, OTHER, SELFPAY ==
[2021-10-26] VITALS (26 sets, daily range): BP systolic 113–157; BP diastolic 60–113; PULSE 59–163; RESP 14–24; TEMP 37.7; O2SAT 95–98
--- NOTE | ~2021-10-26 | XR_ITS ---
EXAMINATION: XR chest 1V portable EXAM DATE: 10/26/2021 13:19 INDICATION: Shortness of breath, atrial fibrillation. TECHNIQUE: Portable AP frontal chest x-ray was obtained. Comparison is made to prior examination from 02/17/2021. FINDINGS: Age-indeterminate right 7th rib fracture posterolaterally, not specifically visualized on p rior study. This finding has been indicated, marked on the examination for review, clinical correlati on. Some chronic hyperinflation. Scattered postinfectious residua. No confluent consolidation, pneumo thorax or pleural effusion suspected. Cardiomediastinal silhouette is normal. IMPRESSION: 1. Age-indeterminate right 7th rib fracture. 2. Scattered postinfectious residua. 3. Hyperinflation. Reviewed, dictated and finalized at location B.
--- NOTE | 2021-10-26 12:50 | PC.NURSE ---
Dr. Bell at bedside to assess pt.
--- NOTE | 2021-10-26 12:54 | ECG_ITS ---
Measurements Intervals [place] Rate: 150 P: SC: 0 QRS: 35 QRSD: 94 T: 87 QT: 275 QTc: 435 Interpretive Statements ATRIAL FIBRILLATION WITH RAPID VENTRICULAR RESPONSE SEPTAL MYOCARDIAL INFARCTION , OF INDETERMINATE AGE [40+ ms Q WAVE IN V1/V2] ST DEPRESSION, CONSIDER SUBENDOCARDIAL INJURY [0.1+ mV ST DEPRESSION] ABNORMAL ECG NO PREVIOUS ECG AVAILABLE FOR COMPARISON Electronically Signed On 10-27-2021 17:55:52 CDT by Eugenio Le M.D.
--- NOTE | 2021-10-26 12:56 | ED.SOB ---
HPI - SOB/Dyspnea General Chief Complaint: Shortness of Breath/Dyspnea Stated Complaint: Shortness of breath Time Seen by Provider: 10/26/21 12:53 Source: patient and RN notes reviewed Mode of arrival: EMS Limitations: no limitations History of Present Illness HPI Narrative: This is a 65 year old male with history of afib with RVR, COPD, and hypertension who presents for evaluation of a rapid heart rate. Patient states he ran out of his metoprolol 2 days ago. He developed rapid heart rate last night but he decided against going to hospital. This morning his heart racing was worse so he called 911. EMS found patient to be in afib with RVR. Patient was started on IVF. He denies chest pain, nausea, vomiting, fever, diarrhea, worsening cough or abdominal pain. He does reports shortness of breath. He has been taking his Eliquis as prescribed. He was in ER 1 week for afib . Related Data Home Medications Medication Instructions Recorded Confirmed folic acid 1 mg PO DAILY 06/06/19 09/23/21 Breztri Aerosphere 160 inh INHALATION DAILY 09/23/21 09/23/21 albuterol sulfate 2.5 mg INHALATION Q4-6H PRN 09/23/21 09/23/21 loratadine 10 mg PO DAILY 09/23/21 09/23/21 Allergies Allergy/AdvReac Type Severity Reaction Status Date / Time No Known Allergies Allergy Unverified 10/26/21 12:54 Review of Systems Review of Systems: All systems reviewed & are unremarkable except as noted in HPI and below Constitutional: Constitutional: Denies chills, Denies fatigue and Denies fever(s) ENT: Denies nasal congestion and Denies sore throat Cardiovascular: Cardiovascular: Denies chest pain, Reports rapid heart rate and Denies radiating jaw, neck or arm pain Respiratory: Respiratory: Denies cough, Reports dyspnea and Denies wheezing Gastrointestinal: Gastrointestinal: Denies abdominal pain, Denies diarrhea, Denies nausea and Denies vomiting Neurologic: Denies headache(s) and Denies weakness PMFSH Past Medical History Medical History (Updated 10/26/21 @ 15:55 by Pamela Bell MD) Anxiety Atrial fibrillation COPD (chronic obstructive pulmonary disease) Depression Emphysema/COPD HTN (hypertension) Light-headedness Tobacco dependence Vertigo Surgical History Surgical History No significant past surgical history Family History Family History Mother CAD (coronary artery disease) Chronic obstructive pulmonary disease Father Blood clot in vein Social History Social History Smoking packs per day: 0.5 Smoking cigarettes per day: 10.0 Years smoked: 45 Smoking pack-years: 22.50 Tobacco type: cigarettes Second hand tobacco smoke exposure: No Smoking end date: 03/30/20 Alcohol intake: former Drinks per week: 18 Substance use: never Substance use type: does not use Last use: Quit drinking alcohol 18 months ago Gender identity (if verbalized by the patient): Male Sexual Orientation (if Verbalized by the Patient): Straight or Heterosexual Spiritual care concerns: No Agree to blood products: Yes Exam Const: General: no acute distress and alert Orientation/consciousness: patient oriented x3 Eyes: Pupils: Equal, round and reactive pupils present EOM: EOMs intact bilaterally Chest: Chest palpation & inspection: normal inspection of the chest Resp: Effort & Inspection: normal respiratory effort, not labored, no retractions, not tachypneic and no use of accessory muscles Auscultation: clear to auscultation bilaterally Cardio: Rate: tachycardic Rhythm: abnormal rhythm Heart sounds: no murmurs GI: GI Palp: Yes Soft to palpation, No Tenderness to palpation present (GI), No Guarding due to palpation present (GI) and No Rigid due to palpation Auscultation: normal bowel sounds Back/Spine/Pelvis: Back: no CVA tenderness Skin: Gener
[2021-10-26] MEDS: METOPROLOL TARTRATE INJ 5 MG/5 ML VIAL IV PUSH ×2 (13:00→13:36)
[2021-10-26] MEDS: MAGNESIUM SULF 2 GM/WATER 50ML 2 GM/50 ML BAG IVPB (13:00)
--- NOTE | 2021-10-26 13:15 | PC.NURSE ---
Radiology at bedside for chest xray.
[2021-10-26] MEDS: METOPROLOL TARTRATE 50 MG TAB PO (13:36)
[2021-10-26 13:47] LABS: Basophils Absolute Auto 0.1 K/mm3 (0.0-0.1); Basophils Percent Auto 0.6 % (0.2-1.2); Eosinophils Absolute Auto 0.2 K/mm3 (0-0.3); Hematocrit 41.6 % (42.0-52.0); Hemoglobin 13.6 g/dL (14.0-18.0); Immature Granulocyte Absolute 0.04 K/mm3 (0.00-0.031); Immature Granulocyte Percent A 0.4 % (0-0.5); Lymphocytes Absolute Auto 1.41 K/mm3 (0.9-3.2); Lymphocytes Percent Auto 12.9 % (18.3-44.2); Mean Corpuscular HGB Conc 32.7 g/dl (32-36); Mean Corpuscular Hemoglobin 30.4 pg (26-34); Mean Corpuscular Volume 93.1 fl (80-100); Mean Platelet Volume 9.5 fl (7.4-10.4); Monocytes Absolute Auto 0.8 K/mm3 (0.1-0.6); Monocytes Percent Auto 6.9 % (2.6-8.5); Neutrophils Absolute Auto 8.4 K/mm3 (1.3-6.7); Neutrophils Percent Auto 77.2 % (45.5-73.1); Platelet Count Result 275 k/mm3 (150-375); Red Blood Count 4.47 M/mm3 (4.6-6.20); Red Cell Distribution Width 13.9 % (11.5-14.5); White Blood Count 10.9 K/mm3 (4.5-10.0)
[2021-10-26 14:02] LABS: INR 1.3; Prothrombin Time 15.4 Seconds (11.1-14.7)
[2021-10-26 14:03] LABS: Partial Thromboplastin Time 42.1 SECONDS (22.3-36.8)
[2021-10-26 14:06] LABS: Alanine Aminotransferase 14 U/L (4-50); Albumin Level 4.1 g/dL (3.5-5.1); Alkaline Phosphatase 79 U/L (38-126); Anion Gap 8 mmol/L (8-16); Aspartate Amino Transferase 20 U/L (17-59); Bilirubin,Total 0.5 mg/dL (0.2-1.3); Blood Urea Nitrogen 15 mg/dL (9-20); Calcium 8.5 mg/dL (8.4-10.2); Carbon Dioxide 23 mmol/L (22-30); Chloride 112 mmol/L (98-107); Estimated CRCL calculation 59 ml/min; Estimated Glomerular Filt Rate > 60; Glucose 110 mg/dL (65-110); Magnesium 2.9 mg/dL (1.6-2.3); Potassium 3.8 mmol/L (3.4-5.0); Sodium 143 mmol/L (137-145)
[2021-10-26] MEDS: dilTIAZem HCl INJ 25 MG/5 ML VIAL 10 MG IV PUSH (14:06)
[2021-10-26 14:15] LABS: NT Pro B Type Natriuretic Pept 258 pg/mL (5-100); Troponin I < 0.012 ng/mL (0.000-0.034)
--- NOTE | 2021-10-26 14:16 | ECG_ITS ---
Measurements Intervals [place] Rate: 65 P: 74 AR: 166 QRS: 43 QRSD: 98 T: 64 QT: 391 QTc: 408 Interpretive Statements SINUS RHYTHM POSSIBLE LEFT ATRIAL ENLARGEMENT [-0.1mV P WAVE IN V1/V2] LEFT VENTRICULAR HYPERTROPHY ABNORMAL ECG COMPARED TO ECG 10/26/2021 12:45:58 SINUS RHYTHM NOW PRESENT Electronically Signed On 10-27-2021 17:56:24 CDT by Eugenio Le M.D.
[2021-10-26 14:21] LABS: SARS-CoV-2 RNA PCR Negative
[2021-10-26 14:28] LABS: Appearance Urine Clear (Clear); Bilirubin Urine Negative (Negative); Blood Urine Trace-lysed (Negative); Color Urine Yellow (Yellow); Glucose Urine UA Negative (Negative); Ketones Urine Negative (Negative); Leukocyte Esterase Ur Negative LEU/UL (Negative); Nitrate Urine Negative (Negative); Protein Urine Negative (Negative); Specific Grav Ur 1.015 (1.001-1.035); Urobilinogen Urine 0.2 mg/dL (<2.0)
[2021-10-26 14:32] LABS: Squamous Epithelial Cell Urine Rare /hpf (Few); WBC Urine 0-3 /hpf
[2021-10-26 14:34] LABS: Add Urine Microscopic? YES
[2021-10-26 15:51] LABS: Influenza A QL RT-PCR Negative (Negative); Influenza B QL RT-PCR Negative (Negative)
== END 2021-10-26 16:20 | disposition home or self-care (01) ==
PROVIDERS: Emergency Provider General Practice; PCP Family Medicine
DX: I48.0 Paroxysmal atrial fibrillation (principal); Z20.822 Contact with and (suspected) exposure to COVID-19; I10 Essential (primary) hypertension; J44.9 Chronic obstructive pulmonary disease, unspecified; Z87.891 Personal history of nicotine dependence; Z79.01 Long term (current) use of anticoagulants; R94.31 Abnormal electrocardiogram [ECG] [EKG]; I51.7 Cardiomegaly; R06.02 Shortness of breath
CPT/HCPCS: 36415; 71045; 80053; 81001; 83735; 83880; 84484; 85025; 85610; 85730; 87502; 93005; 96365; 96375; 96376; 99284; A9270; C9803; J0131; J3475; U0003; U0005

== ENCOUNTER 2021-10-28 11:08 | Emergency (ER) | payer MEDICARE, OTHER, SELFPAY ==
[2021-10-28] VITALS (10 sets, daily range): BP systolic 131–152; BP diastolic 69–111; PULSE 53–125; RESP 14–21; TEMP 36.3; O2SAT 97–98
--- NOTE | 2021-10-28 11:19 | ECG_ITS ---
Measurements Intervals [place] Rate: 132 P: [place]: 0 QRS: 43 QRSD: 90 T: 64 QT: 286 QTc: 425 Interpretive Statements ATRIAL FIBRILLATION WITH RAPID VENTRICULAR RESPONSE NONSPECIFIC ST ABNORMALITY. ABNORMAL ECG COMPARED TO ECG 10/26/2021 14:19:53 ATRIAL FIBRILLATION NOW PRESENT ST (T WAVE) DEVIATION NOW PRESENT Electronically Signed On 10-28-2021 15:56:11 CDT by Eugenio Le M.D.
--- NOTE | 2021-10-28 11:30 | PC.NURSE ---
pt converted from afib with rvr to nsr rate 60. states no longer feels palpatations
[2021-10-28 11:44] LABS: Basophils Absolute Auto 0.1 K/mm3 (0.0-0.1); Basophils Percent Auto 0.8 % (0.2-1.2); Eosinophils Absolute Auto 0.4 K/mm3 (0-0.3); Eosinophils Percent Auto 4.6 % (0-4.4); Hematocrit 44.8 % (42.0-52.0); Hemoglobin 14.7 g/dL (14.0-18.0); Immature Granulocyte Absolute 0.03 K/mm3 (0.00-0.031); Immature Granulocyte Percent A 0.3 % (0-0.5); Lymphocytes Absolute Auto 1.77 K/mm3 (0.9-3.2); Lymphocytes Percent Auto 18.8 % (18.3-44.2); Mean Corpuscular HGB Conc 32.8 g/dl (32-36); Mean Corpuscular Hemoglobin 30.6 pg (26-34); Mean Corpuscular Volume 93.1 fl (80-100); Mean Platelet Volume 9.2 fl (7.4-10.4); Monocytes Absolute Auto 0.5 K/mm3 (0.1-0.6); Monocytes Percent Auto 5.7 % (2.6-8.5); Neutrophils Absolute Auto 6.6 K/mm3 (1.3-6.7); Neutrophils Percent Auto 69.8 % (45.5-73.1); Platelet Count Result 280 k/mm3 (150-375); Red Blood Count 4.81 M/mm3 (4.6-6.20); Red Cell Distribution Width 13.7 % (11.5-14.5); White Blood Count 9.4 K/mm3 (4.5-10.0)
--- NOTE | 2021-10-28 11:47 | ED.ARRPALP ---
HPI - Arrhythmia/Palpitations General Chief Complaint: Arrhythmia/Palpitations Stated Complaint: SOB, increased HR Time Seen by Provider: 10/28/21 11:19 Source: patient, EMS, RN notes reviewed and old records reviewed Mode of arrival: EMS Limitations: no limitations History of Present Illness HPI narrative: This is a 65 year old male with history of paroxysmal atrial fibrillation who presents for evaluation of an elevated heart rate. Patient was evaluated in ER 2 days for tachycardia and he was to be in afib with RVR. He converted to sinus rhythm so he was discharged home. At that time he had run out of his metoprolol. He states he has been doing well since discharge but this morning felt his heart racing. He denies associated sob, chest pain, diaphoresis or dizziness. He took his morning dose of metoprolol at 9 am. Related Data Home Medications Medication Instructions Recorded Confirmed folic acid 1 mg PO DAILY 06/06/19 09/23/21 Breztri Aerosphere 160 inh INHALATION DAILY 09/23/21 09/23/21 albuterol sulfate 2.5 mg INHALATION Q4-6H PRN 09/23/21 09/23/21 loratadine 10 mg PO DAILY 09/23/21 09/23/21 Allergies Allergy/AdvReac Type Severity Reaction Status Date / Time No Known Allergies Allergy Verified 10/28/21 11:19 Review of Systems Review of Systems: All systems reviewed & are unremarkable except as noted in HPI and below PMFSH Past Medical History Medical History Anxiety Atrial fibrillation COPD (chronic obstructive pulmonary disease) Depression Emphysema/COPD HTN (hypertension) Light-headedness Tobacco dependence Vertigo Surgical History Surgical History No significant past surgical history Family History Family History Mother CAD (coronary artery disease) Chronic obstructive pulmonary disease Father Blood clot in vein Social History Social History Smoking packs per day: 0.5 Smoking cigarettes per day: 10.0 Years smoked: 45 Smoking pack-years: 22.50 Tobacco type: cigarettes Second hand tobacco smoke exposure: No Smoking end date: 03/30/20 Alcohol intake: former Drinks per week: 18 Substance use: never Substance use type: does not use Last use: Quit drinking alcohol 18 months ago Gender identity (if verbalized by the patient): Male Sexual Orientation (if Verbalized by the Patient): Straight or Heterosexual Spiritual care concerns: No Agree to blood products: Yes Exam Const: General: no acute distress and alert Orientation/consciousness: patient oriented x3 Eyes: EOM: EOMs intact bilaterally Chest: Chest palpation & inspection: normal inspection of the chest Resp: Effort & Inspection: normal respiratory effort and no retractions Auscultation: clear to auscultation bilaterally Cardio: Rate: tachycardic Rhythm: abnormal rhythm Heart sounds: no murmurs GI: GI Palp: Yes Soft to palpation, No Tenderness to palpation present (GI) and No Guarding due to palpation present (GI) Auscultation: normal bowel sounds Back/Spine/Pelvis: Back: no CVA tenderness Skin: General skin exam: normal color Rashes: no rashes Neuro: General: patient oriented x3, moves all extremities and CN's II-XI intact bilaterally Extrem: General: normal to inspection Psych: Mental Status: mental status grossly normal Affect: normal affect Course Reevaluation(s) Reevaluation #1: Patient has remained in sinus rhythm with rate 50s . Labs are unremarkable. I have confirmed with patient has appointment with Dr. Medina at 4pm on Tuesday. I reviewed return precautions. Date: 10/28/21 Time: 13:09 Consultations Consultation #1: I Spoke with Dr. Le about patient. Patient has spontaneously converted in ER with out receiving additional medication. Dr. Razo
[2021-10-28 11:54] LABS: Alanine Aminotransferase 16 U/L (4-50); Albumin Level 4.2 g/dL (3.5-5.1); Alkaline Phosphatase 75 U/L (38-126); Anion Gap 7 mmol/L (8-16); Aspartate Amino Transferase 24 U/L (17-59); Bilirubin,Total 0.5 mg/dL (0.2-1.3); Blood Urea Nitrogen 17 mg/dL (9-20); Calcium 8.7 mg/dL (8.4-10.2); Carbon Dioxide 24 mmol/L (22-30); Chloride 110 mmol/L (98-107); Estimated CRCL calculation 53 ml/min; Estimated Glomerular Filt Rate > 60; Glucose 108 mg/dL (65-110); Sodium 141 mmol/L (137-145)
[2021-10-28 11:56] LABS: INR 1.3; Prothrombin Time 15.2 Seconds (11.1-14.7)
[2021-10-28 11:57] LABS: Partial Thromboplastin Time 40.5 SECONDS (22.3-36.8)
--- NOTE | 2021-10-28 11:58 | ECG_ITS ---
Measurements Intervals [place] Rate: 57 P: 78 PA: 166 QRS: 52 QRSD: 82 T: 65 QT: 395 QTc: 386 Interpretive Statements SINUS BRADYCARDIA POSSIBLE LEFT ATRIAL ENLARGEMENT [-0.1mV P WAVE IN V1/V2] SEPTAL MYOCARDIAL INFARCTION , PROBABLY OLD [40+ ms Q WAVE IN V1/V2] ABNORMAL ECG Electronically Signed On 10-30-2021 15:35:25 CDT by Eugenio Le M.D.
[2021-10-28 12:06] LABS: Troponin I < 0.012 ng/mL (0.000-0.034)
== END 2021-10-28 13:22 | disposition home or self-care (01) ==
PROVIDERS: Emergency Provider General Practice; PCP Family Medicine
DX: I48.0 Paroxysmal atrial fibrillation (principal); I10 Essential (primary) hypertension; J43.9 Emphysema, unspecified; Z87.891 Personal history of nicotine dependence; Z79.01 Long term (current) use of anticoagulants; R00.1 Bradycardia, unspecified; R94.31 Abnormal electrocardiogram [ECG] [EKG]
CPT/HCPCS: 36415; 80053; 83735; 84484; 85025; 85610; 85730; 93005; 99284

== ENCOUNTER 2021-11-09 14:47 | Emergency (ER) | payer MEDICARE, OTHER, SELFPAY ==
--- NOTE | ~2021-11-09 | XR_ITS ---
EXAMINATION: XR foot RT 2V DATE: 11/09/2021 15:18 INDICATION: Right foot pain. TECHNIQUE: 2 views of right foot were obtained. COMPARISON: None. FINDINGS: There is mild hallux valgus. No fracture. There is mild osteoarthritis of first metatarsoph alangeal joint. There are enthesophytes at the posterior and plantar aspects of calcaneal tuberosity. IMPRESSION: 1. Mild hallux valgus. 2. Mild osteoarthritis of first metatarsophalangeal joint. Reviewed, dictated and finalized at location A.
--- NOTE | ~2021-11-09 | XR_ITS ---
EXAMINATION: XR ankle RT 2V DATE: 11/09/2021 15:18 INDICATION: Right ankle pain. TECHNIQUE: 2 views of right ankle were obtained. COMPARISON: None. FINDINGS: Bone alignment is normal. No fracture. Joint spaces are normal. There are enthesophytes at posterior and plantar aspects of calcaneal tuberosity. IMPRESSION: 1. No fracture. Reviewed, dictated and finalized at location A. IMPRESSION: 1. No fracture.
[2021-11-09 15:02] VITALS: BP 170/69; PULSE 59; RESP 20; TEMP 36.7; O2SAT 98
--- NOTE | 2021-11-09 15:11 | ED.LOWEXIN ---
HPI - Extremity Injury (Lower) General Chief Complaint: Extremity Injury, Lower Stated Complaint: swelling RT foot Time Seen by Provider: 11/09/21 15:11 Source: patient Mode of arrival: ambulatory History of Present Illness HPI Narrative: this is a 65-year-old gentleman presents with some anterior right foot is tender to touch has good range of motion has a good strong risk pedal pulse on the right with some mild swelling no redness no warmth no numbness or tingling. complaint: foot injury ( foot pain with no known injury) Onset (ago): day(s) Injury: Right: foot Related Data Home Medications Medication Instructions Recorded Confirmed folic acid 1 mg PO DAILY 06/06/19 09/23/21 Breztri Aerosphere 160 inh INHALATION DAILY 09/23/21 09/23/21 albuterol sulfate 2.5 mg INHALATION Q4-6H PRN 09/23/21 09/23/21 loratadine 10 mg PO DAILY 09/23/21 09/23/21 Allergies Allergy/AdvReac Type Severity Reaction Status Date / Time No Known Allergies Allergy Verified 10/28/21 11:19 Review of Systems Review of Systems: All systems reviewed & are unremarkable except as noted in HPI and below PMFSH Past Medical History Medical History Anxiety Atrial fibrillation COPD (chronic obstructive pulmonary disease) Depression Emphysema/COPD HTN (hypertension) Light-headedness Tobacco dependence Vertigo Surgical History Surgical History No significant past surgical history Family History Family History Mother CAD (coronary artery disease) Chronic obstructive pulmonary disease Father Blood clot in vein Social History Social History Smoking packs per day: 0.5 Smoking cigarettes per day: 10.0 Years smoked: 45 Smoking pack-years: 22.50 Tobacco type: cigarettes Second hand tobacco smoke exposure: No Smoking end date: 03/30/20 Alcohol intake: former Drinks per week: 18 Substance use: never Substance use type: does not use Last use: Quit drinking alcohol 18 months ago Gender identity (if verbalized by the patient): Male Sexual Orientation (if Verbalized by the Patient): Straight or Heterosexual Spiritual care concerns: No Agree to blood products: Yes Exam Const: General: no acute distress Orientation/consciousness: patient oriented x3 HENMT: Head: normal to inspection Eyes: Conjunctivae: conjunctivae normal Pupils: Equal, round and reactive pupils present Neck: Neck: normal visual inspection Chest: Chest palpation & inspection: normal inspection of the chest Resp: Effort & Inspection: normal respiratory effort Cardio: Rate: regular rate Rhythm: regular rhythm GI: GI Palp: Yes Soft to palpation Percussion: Yes normal to percussion Back/Spine/Pelvis: Back: no CVA tenderness Skin: General skin exam: normal color Rashes: no rashes Neuro: General: patient oriented x3, moves all extremities, no meningeal signs and no focal motor deficits Extrem: General: normal to inspection and edema Other: Point tenderness anterior right foot Psych: Mental Status: mental status grossly normal Affect: normal affect Attitude: cooperative Course Course Emergency Course: patient had x-ray performed and reviewed. Critical Care Time Critical Care Time Critical Care Time: No Discharge Plan Discharge Clinical Impression: Acute foot pain Qualifiers: Laterality: right Qualified Code(s): M79.671 - Pain in right foot Patient Disposition: Home, Self-Care Condition: Stable Instructions: Antibiotic Form, Foot Sprain (ED) Additional Instructions: can take Tylenol extra-strength 2 to 3 times daily as needed, warm compress to affected foot, can keep elevated at night while resting and follow-up with primary care physician if symptoms persist or worsen. [employer]criptio
[2021-11-09 15:35] VITALS: PULSE 60; RESP 20; O2SAT 98
== END 2021-11-09 15:35 | disposition home or self-care (01) ==
PROVIDERS: Emergency Provider Emergency Medicine; PCP Family Medicine
DX: M79.671 Pain in right foot (principal)
CPT/HCPCS: 73600; 73620; 99283

== ENCOUNTER 2021-11-12 14:55 | Outpatient (CLI) | payer MEDICARE, SELFPAY ==
[2021-11-12 15:19] LABS: Uric Acid 4.3 mg/dL (3.5-7.2)
== END 2021-11-12 14:56 | disposition home or self-care (01) ==
LOC: CHSLAB 14:57
PROVIDERS: PCP Family Medicine; Visit Provider Nurse Practitioner Family
DX: M79.671 Pain in right foot (principal)
CPT/HCPCS: 36415; 84550

== ENCOUNTER 2021-11-13 04:07 | Inpatient (IN) | payer MEDICARE, OTHER, SELFPAY ==
[2021-11-13] VITALS (38 sets, daily range): BP systolic 108–144; BP diastolic 57–107; PULSE 54–167; RESP 12–21; TEMP 36.1–36.9; O2SAT 94–100; BMI 19.8
--- NOTE | 2021-11-13 04:16 | ECG_ITS ---
Measurements Intervals [place] Rate: 133 P: [place]: 0 QRS: 53 QRSD: 80 T: 68 QT: 268 QTc: 400 Interpretive Statements ATRIAL FIBRILLATION WITH RAPID VENTRICULAR RESPONSE SEPTAL MYOCARDIAL INFARCTION , PROBABLY OLD [40+ ms Q WAVE IN V1/V2] NONSPECIFIC T-WAVE ABNORMALITY COMPARED TO ECG 10/28/2021 11:58:08 ATRIAL FIBRILLATION REPLACES SINUS RHYTHM Electronically Signed On 11-13-2021 12:47:54 CDT by Kendrick Block M.D.
[2021-11-13] MEDS: SODIUM CHLORIDE 0.9% IV 500 ML 999 ML IV CONT (04:23)
[2021-11-13] MEDS: METOPROLOL TARTRATE INJ 5 MG/5 ML VIAL IV PUSH ×2 (04:23→04:40)
--- NOTE | 2021-11-13 04:27 | ED.ARRPALP ---
HPI - Arrhythmia/Palpitations General Chief Complaint: Arrhythmia/Palpitations Stated Complaint: heart racing Time Seen by Provider: 11/13/21 04:13 Source: patient History of Present Illness HPI narrative: Patient presents with palpitations. Reports history of intermittent A. fib and this feels like his prior episodes. He reports he felt like his heart was racing around 5:00 this afternoon and was associated with shortness of breath he took some albuterol and symptoms did improve. His resumptive is resumed around 11:00 he was monitoring his heart rate with a finger pulse oximeter at home. He was sitting in the 110s heart rate went up to the 120s so he called EMS and came to the ER for evaluation. Denies any chest pain. Related Data Home Medications Medication Instructions Recorded Confirmed folic acid 1 mg PO DAILY 06/06/19 09/23/21 Breztri Aerosphere 160 inh INHALATION DAILY 09/23/21 09/23/21 albuterol sulfate 2.5 mg INHALATION Q4-6H PRN 09/23/21 09/23/21 loratadine 10 mg PO DAILY 09/23/21 09/23/21 Allergies Allergy/AdvReac Type Severity Reaction Status Date / Time No Known Allergies Allergy Verified 11/13/21 04:13 Review of Systems Review of Systems: CONSTITUTIONAL: Denies fever, chills, or sweats. EYES: Denies visual changes, redness, or discharge. ENT: Denies rhinorrhea, congestion, sore throat, or otalgia. CARDIOVASCULAR: Denies chest pain, or edema. RESPIRATORY: Denies cough or dyspnea. GASTROINTESTINAL: Denies abdominal pain, nausea, vomiting, or diarrhea. GENITOURINARY: Denies dysuria or hematuria. SKIN: Denies rash or itching. MUSCULOSKELETAL: Denies back pain, joint pain, or myalgia. NEUROLOGIC: Denies headache, numbness, dizziness, or weakness. PSYCHIATRIC: Denies anxiety or depression. All systems reviewed & are unremarkable except as noted in HPI and below PMFSH Past Medical History Medical History Anxiety Atrial fibrillation COPD (chronic obstructive pulmonary disease) Depression Emphysema/COPD HTN (hypertension) Light-headedness Tobacco dependence Vertigo Surgical History Surgical History No significant past surgical history Family History Family History Mother CAD (coronary artery disease) Chronic obstructive pulmonary disease Father Blood clot in vein Social History Social History Smoking packs per day: 0.5 Smoking cigarettes per day: 10.0 Years smoked: 45 Smoking pack-years: 22.50 Smoking status: Current every day smoker Tobacco type: cigarettes Second hand tobacco smoke exposure: No Smoking end date: 03/30/20 Alcohol intake: former Drinks per week: 18 Substance use: never Substance use type: does not use Last use: Quit drinking alcohol 18 months ago Gender identity (if verbalized by the patient): Male Sexual Orientation (if Verbalized by the Patient): Straight or Heterosexual Spiritual care concerns: No Agree to blood products: Yes Exam Narrative: GENERAL: Well-appearing, well-nourished, and in no acute distress. HEAD: Normocephalic, atraumatic. EYES: PERRLA and EOMI. ENT: Nares clear, no rhinorrhea or epistaxis. Mucous membranes moist. NECK: Supple. No masses. No JVD CHEST: Clear to auscultation. No respiratory distress. No wheezes rales or rhonchi HEART: Regular tachycardia. No murmur heard. Normal peripheral pulses. ABDOMEN: Soft, nontender, nondistended, normal active bowel sounds. EXTREMITIES: Normal range of motion. No edema. SKIN: Warm, dry, no rash. NEURO: No focal deficits. Alert and oriented x3. PSYCH: Normal mood and affect. Course Reevaluation(s) Reevaluation #1: Patient does report feeling much improved but continues to have mild palpations heart rate has improved predominantly in the 90s his hear
[2021-11-13 04:32] LABS: Basophils Absolute Auto 0.1 K/mm3 (0.0-0.1); Eosinophils Absolute Auto 0.8 K/mm3 (0-0.3); Eosinophils Percent Auto 6.9 % (0-4.4); Hematocrit 42.3 % (42.0-52.0); Hemoglobin 13.8 g/dL (14.0-18.0); Immature Granulocyte Absolute 0.04 K/mm3 (0.00-0.031); Immature Granulocyte Percent A 0.3 % (0-0.5); Lymphocytes Absolute Auto 3.23 K/mm3 (0.9-3.2); Lymphocytes Percent Auto 27.6 % (18.3-44.2); Mean Corpuscular HGB Conc 32.6 g/dl (32-36); Mean Corpuscular Hemoglobin 30.7 pg (26-34); Mean Corpuscular Volume 94.2 fl (80-100); Mean Platelet Volume 9.7 fl (7.4-10.4); Monocytes Absolute Auto 0.9 K/mm3 (0.1-0.6); Monocytes Percent Auto 7.3 % (2.6-8.5); Neutrophils Absolute Auto 6.7 K/mm3 (1.3-6.7); Neutrophils Percent Auto 56.9 % (45.5-73.1); Platelet Count Result 299 k/mm3 (150-375); Red Blood Count 4.49 M/mm3 (4.6-6.20); Red Cell Distribution Width 13.4 % (11.5-14.5); White Blood Count 11.7 K/mm3 (4.5-10.0)
[2021-11-13 04:43] LABS: INR 1.1; Prothrombin Time 13.4 Seconds (11.1-14.7)
[2021-11-13 04:44] LABS: Partial Thromboplastin Time 34.7 SECONDS (22.3-36.8)
[2021-11-13 04:48] LABS: Alanine Aminotransferase 13 U/L (4-50); Albumin Level 4.1 g/dL (3.5-5.1); Alkaline Phosphatase 66 U/L (38-126); Anion Gap 5 mmol/L (8-16); Aspartate Amino Transferase 23 U/L (17-59); Bilirubin,Total 0.2 mg/dL (0.2-1.3); Blood Urea Nitrogen 14 mg/dL (9-20); Calcium 8.6 mg/dL (8.4-10.2); Carbon Dioxide 27 mmol/L (22-30); Chloride 112 mmol/L (98-107); Estimated CRCL calculation 51 ml/min; Estimated Glomerular Filt Rate 60; Glucose 96 mg/dL (65-110); Magnesium 1.9 mg/dL (1.6-2.3); Potassium 4.1 mmol/L (3.4-5.0); Sodium 144 mmol/L (137-145)
[2021-11-13 04:54] LABS: Add Urine Microscopic? YES; Appearance Urine Clear (Clear); Bilirubin Urine Negative (Negative); Blood Urine 1+ (Negative); Color Urine Colorless (Yellow); Glucose Urine UA Negative (Negative); Ketones Urine Negative (Negative); Leukocyte Esterase Ur Negative LEU/UL (Negative); Nitrate Urine Negative (Negative); Protein Urine Negative (Negative); RBC Urine 0-2 /hpf (0-2); Urobilinogen Urine Negative mg/dL (<2.0); WBC Urine 0-3 /hpf
[2021-11-13] MEDS: dilTIAZem HCl INJ 25 MG/5 ML VIAL 10 MG IV PUSH (04:56)
[2021-11-13 04:58] LABS: Specific Grav Ur 1.002 (1.001-1.035)
--- NOTE | 2021-11-13 05:00 | ECG_ITS ---
Measurements Intervals [place] Rate: 89 P: [place]: 0 QRS: 44 QRSD: 89 T: 69 QT: 352 QTc: 428 Interpretive Statements ATRIAL FIBRILLATION ABNORMAL RHYTHM ECG COMPARED TO ECG 11/13/2021 04:09:28 HEART RATE RESPONSE IS NOW CONTROLLED Electronically Signed On 11-13-2021 12:48:10 CDT by Kendrick Block M.D.
[2021-11-13] MEDS: dilTIAZem 100 MG/100 ML 100 MG/100 ML BAG IV CONT (05:45)
--- NOTE | 2021-11-13 06:30 | PC.NURSE ---
This patient, Karan Sexton, was admitted to IMU status, and placed in IMU Room 211-01. Patient/family oriented to hospital policies and general routines including ID bracelet, bed and alarms, visiting hours, pain management, procedures, bathroom and other care routines, personal items, smoking policy, room service/diet, and visiting hours. Valuables list has been completed. Information on how to activate the Rapid Response Team has been discussed. Patient/Family are encouraged to report perceived risks to care and to ask questions if they do not understand what they are told or what they should do.
--- NOTE | 2021-11-13 07:55 | ECG_ITS ---
Measurements Intervals [place] Rate: 57 P: 72 [place]: 154 QRS: 41 QRSD: 89 T: 61 QT: 413 QTc: 404 Interpretive Statements SINUS BRADYCARDIA OTHERWISE NORMAL ECG COMPARED TO ECG 11/13/2021 05:17:43 SINUS BRADYCARDIA REPLACES ATRIAL FIBRILLATION Electronically Signed On 11-13-2021 12:50:15 CDT by Kendrick Block M.D.
--- NOTE | 2021-11-13 09:38 | PM.CNCAR ---
Assessment and Plan Additional Plan This is a 65-year-old man with paroxysmal atrial fibrillation diagnosed last year. He has been in the hospital several times with recurrences of this. He is back in sinus rhythm after receiving IV diltiazem infusion last evening. I will transition him now from metoprolol to sotalol. I believe with multiple recurrences like this requiring repeat hospitalization it is time to advance his antiarrhythmic regimen. I will continue the apixaban that has been started for anticoagulation. The remainder of his medications inhalers and so on will be deferred to the primary team. Kendrick Block MD [facility] History of Present Illness History of Present Illness Consult date/time: 11/13/21 09:38 Consult reason: atrial fibrillation Reason For Visit: afib with rvr Narrative: This is a pleasant 65-year-old man I am seeing at the request of the hospitalist because of atrial fibrillation. This is a patient that follows in our office after having been seen by Dr. Luo in consultation for this same issue in July of 2020. He has a history of some COPD which has been attributed to longstanding cigarette smoking and also a prior history of excessive ethanol consumption. He had an episode of symptomatic atrial fibrillation again in July 2020 he after hospitalization he was placed on metoprolol treatment and it was also apparently started on apixaban. He was back in sinus rhythm and was discharged. He has never required an electrical cardioversion. Since then he has been hospitalized about 3 additional times with recurrences of atrial fibrillation. On 1 or 2 of those he had a history of noncompliance with his beta-mayco. He was seen in our office last on 11/06/2021 just earlier this month a few days ago and was found to be in sinus rhythm and was asymptomatic. He says he has been taking his medication appropriately without missing doses. He noticed the rapid onset of tachycardia and palpitations again last evening he came to the emergency room and was back in AF with RVR. His previous exams did not show any evidence of left ventricular dysfunction or significant valvular disease. He was of course given intravenous diltiazem in the emergency room which provided rate control and over the course of the night he has converted back to sinus rhythm. He is comfortable and asymptomatic this morning. None of his medications have been ordered in terms of his home medications he is concerned about that. Having said that he feels fine at the moment is doing well. He denies any symptoms of chest pain pressure or heaviness he denies any orthopnea or PND. He is trying to cut down and quit smoking but is still smoking a half a pack to a pack per day. He is retired kinder teacher. Review of Systems Constitutional: Constitutional: Reports no additional constitutional complaints Eyes: Eyes: Reports no additional eye complaints ENT: Reports system reviewed and no additional complaints, except as documented Cardiovascular: Cardiovascular: Reports palpitations Respiratory: Respiratory: Reports no additional respiratory complaints Gastrointestinal: Gastrointestinal: Reports no additional gastrointestinal complaints Musculoskeletal: Musculoskeletal: Reports no additional musculoskeletal complaints Integumentary/Breasts: Skin/Breast: Reports system reviewed and no additional complaints, except as docu Neurologic: Reports system reviewed and no additional complaints, except as documented Endocrine: Endocrine: Reports no additional endocrine complaints Hematologic/Lymphatic: Hematologic/Lymphatic: Reports no additional hematologic/lymphatic complaints Allergic/Immunologic: Allergic/Immunologic: Reports no additional allergic/immunologic complaints PMFSH Past Medical History Medical History Anxiety Atrial fibrillation COPD (chronic obstructive pulmonary disease) Depression Em
[2021-11-13] MEDS: APIXABAN 5 MG TABLET PO ×2 (14:17→21:16)
[2021-11-13] MEDS: ARTIFICIAL TEARS OPHTH SOLN 15 ML BOTTLE 2 DROP EACH EYE (20:20)
[2021-11-13] MEDS: SOTALOL HCL 80 MG TABLET PO (21:16)
[2021-11-13] MEDS: LORazepam (*CRX) 1 MG TABLET PO (21:48)
[2021-11-13] MEDS: BENZONATATE 100 MG CAPSULE BY MOUTH (21:48)
--- NOTE | 2021-11-13 23:15 | ECG_ITS ---
Measurements Intervals [place] Rate: 51 P: 74 [place]: 162 QRS: 37 QRSD: 86 T: 57 QT: 468 QTc: 432 Interpretive Statements SINUS BRADYCARDIA COMPARED TO ECG 11/13/2021 08:46:40 NO SIGNIFICANT CHANGES Electronically Signed On 11-14-2021 13:40:17 CDT by Nirmala Medina M.D.
[2021-11-14] VITALS (18 sets, daily range): BP systolic 127–152; BP diastolic 54–70; PULSE 53–85; RESP 16–24; TEMP 36.1–36.6; O2SAT 92–98
[2021-11-14] MEDS: FLUTICASONE/UMECLIDIN/VILANTER 100-62.5-25 MCG ELLIPTA 1 PUFF INHALATION (08:16)
[2021-11-14] MEDS: ALBUTEROL SULFATE (*SP) AEROSOL 1 PUFF 2 PUFF INHALATION ×2 (08:19→21:16)
[2021-11-14] MEDS: APIXABAN 5 MG TABLET PO ×2 (09:14→20:49)
[2021-11-14] MEDS: ARTIFICIAL TEARS OPHTH SOLN 15 ML BOTTLE 2 DROP EACH EYE ×2 (09:14→16:57)
[2021-11-14] MEDS: SOTALOL HCL 80 MG TABLET PO ×2 (09:14→20:50)
--- NOTE | 2021-11-14 09:58 | PM.PNCARD ---
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 11/13/2021 EKG at 11:26 p.m.: Sinus bradycardia rate 51, QTC 432 milliseconds, acceptable. Follow for excessive bradycardia Likely discharge on Tuesday morning, after 5 or 6 doses of sotalol (3) HTN (hypertension): Qualifiers: Hypertension type: unspecified Qualified Code(s): I10 - Essential (primary) hypertension Code(s): I10 - Essential (primary) hypertension Status: Chronic Assessment and Plan: Was treated with metoprolol for hypertension, will need to change to another medication due to his bradycardia now that he is taking sotalol. Add amlodipine 5 mg daily Subjective Date/time seen: 11/14/21 09:58 Interval history: Follow-up paroxysmal atrial fibrillation, sotalol loading 11/13/2021: This is a 65-year-old man with paroxysmal atrial fibrillation diagnosed last year. He has been in the hospital several times with recurrences of this. He is back in sinus rhythm after receiving IV diltiazem infusion last evening. I will transition him now from metoprolol to sotalol. I believe with multiple recurrences like this requiring repeat hospitalization it is time to advance his antiarrhythmic regimen. I will continue the apixaban that has been started for anticoagulation. Date of service 11/14/2021: Feeling fine. Blood pressure elevated. Pulses generally 60-85, occasionally in the 50s at night. Telemetry shows NSR, no AFib or ventricular tachycardia Review of Systems Constitutional: Constitutional: Denies fatigue Eyes: Eyes: Reports no additional eye complaints ENT: Denies epistaxis Cardiovascular: Cardiovascular: Denies chest pain, Denies pedal edema and Denies lightheadedness Respiratory: Respiratory: Denies dyspnea and Denies wheezing Gastrointestinal: Gastrointestinal: Denies abdominal pain Genitourinary: Genitourinary: Denies dysuria Musculoskeletal: Musculoskeletal: Reports no additional musculoskeletal complaints Integumentary/Breasts: Skin/Breast: Denies rash Neurologic: Denies confusion Psychiatric: Psychiatric: Denies behavioral changes Exam Const: General: comfortable and no acute distress HENMT: Mouth: Yes moist mucous membranes Eyes: EOM: EOMs intact bilaterally Neck: Neck: supple Resp: Effort & Inspection: normal respiratory effort Auscultation: clear to auscultation bilaterally Cardio: Rate: regular rate Rhythm: regular rhythm Heart sounds: no murmurs GI: GI Palp: Yes Soft to palpation and No Tenderness to palpation present (GI) Skin: General skin exam: normal color and no rashes or lesions noted Neuro: Cognition (Neuro): normal cognition Speech: normal speech Extrem: General: no edema and no pedal edema Psych: Mental Status: mental status grossly normal Affect: normal affect Objective Data Vital Signs Vital Signs: Vital Signs - 24 hr 11/13/21 10:00 11/13/21 11:55 11/13/21 12:00 Temperature 98.5 F Pulse Rate 56 L 54 L 57 L Respiratory Rate 16 Blood Pressure 134/57 L Pulse Oximetry 100 11/13/21 14:00 11/13/21 16:00 11/13/21 18:00 Temperature 97.8 F Pulse Rate 64 65 69 Respiratory Rate 18 Blood Pressure 133/62 Pulse Oximetry 99 11/13/21 20:00 11/13/21 20:55 11/13/21 21:16 Temperature 97 F L Pulse Rate 59 L 60 Respiratory Rate 16 Blood Pressure 144/
--- NOTE | 2021-11-14 11:30 | ECG_ITS ---
Measurements Intervals [place] Rate: 52 P: 83 [place]: 156 QRS: 46 QRSD: 90 T: 60 QT: 457 QTc: 427 Interpretive Statements SINUS BRADYCARDIA WITH SHORT [place] INTERVAL COMPARED TO ECG 11/13/2021 23:26:38 NO SIGNIFICANT CHANGES Electronically Signed On 11-14-2021 13:43:30 CDT by Nirmala Medina M.D.
[2021-11-14] MEDS: amLODIPine BESYLATE 5 MG TABLET PO (12:28)
[2021-11-14] MEDS: ESCITALOPRAM OXALATE 10 MG TABLET PO (12:28)
[2021-11-14] MEDS: LORATADINE 10 MG TABLET PO (12:28)
[2021-11-14] MEDS: FOLIC ACID 1 MG TABLET PO (12:28)
--- NOTE | 2021-11-14 22:55 | ECG_ITS ---
Measurements Intervals [place] Rate: 54 P: 75 [place]: 163 QRS: 41 QRSD: 89 T: 56 QT: 472 QTc: 451 Interpretive Statements SINUS BRADYCARDIA BORDERLINE ECG Electronically Signed On 11-15-2021 6:41:47 CDT by Brock Seymour D.O.
[2021-11-15] VITALS (21 sets, daily range): BP systolic 120–139; BP diastolic 54–67; PULSE 47–63; RESP 16–20; TEMP 36.2–36.8; O2SAT 95–100
[2021-11-15] MEDS: FLUTICASONE/UMECLIDIN/VILANTER 100-62.5-25 MCG ELLIPTA 1 PUFF INHALATION (08:06)
[2021-11-15] MEDS: BENZONATATE 100 MG CAPSULE BY MOUTH (09:19)
[2021-11-15] MEDS: amLODIPine BESYLATE 5 MG TABLET PO (09:20)
[2021-11-15] MEDS: FOLIC ACID 1 MG TABLET PO (09:20)
[2021-11-15] MEDS: SOTALOL HCL 80 MG TABLET PO ×2 (09:20→20:45)
[2021-11-15] MEDS: LORATADINE 10 MG TABLET PO (09:20)
[2021-11-15] MEDS: ESCITALOPRAM OXALATE 10 MG TABLET PO (09:21)
[2021-11-15] MEDS: APIXABAN 5 MG TABLET PO ×2 (09:21→20:45)
--- NOTE | 2021-11-15 09:23 | ECG_ITS ---
Measurements Intervals [place] Rate: 55 P: 78 [place]: 151 QRS: 58 QRSD: 94 T: 60 QT: 478 QTc: 458 Interpretive Statements SINUS BRADYCARDIA BASELINE ARTIFACT- I, II, III, AVR, AVL, AVF, V1, V3-V6 BORDERLINE ECG Electronically Signed On 11-15-2021 16:28:39 CDT by Brock Seymour D.O.
--- NOTE | 2021-11-15 11:30 | ECG_ITS ---
Measurements Intervals [place] Rate: 50 P: [place]: 0 QRS: 49 QRSD: 94 T: 53 QT: 481 QTc: 441 Interpretive Statements SINUS BRADYCARDIA ATRIAL PREMATURE COMPLEXES BASELINE ARTIFACT- I, II, III, AVR, AVL, V4-V6 BORDERLINE ECG Electronically Signed On 11-15-2021 16:29:17 CDT by Brock Seymour D.O.
--- NOTE | 2021-11-15 12:27 | PM.PNCARD ---
Progress Note: A&P Assessment and Plan (1) Paroxysmal atrial fibrillation: Code(s): I48.0 - Paroxysmal atrial fibrillation Status: Acute Assessment and Plan: Problematic recurrent paroxysmal atrial fibrillation Remaining in sinus rhythm Anticoagulated with Eliquis Being loaded on sotalol (2) Encounter for monitoring anti-arrhythmic therapy: Code(s): Z51.81 - Encounter for therapeutic drug level monitoring; Z79.899 - Other detention (current) drug therapy Status: Acute Assessment and Plan: Being monitored on telemetry while loading with sotalol, evaluating for any proarrhythmic effect or QT prolongation. EKG 11/15/2021 at 11:20 a.m. shows sinus bradycardia rate 50, QTC 441 milliseconds which is acceptable. Follow for excessive bradycardia Likely discharge on Tuesday morning, after 5 or 6 doses of sotalol (3) HTN (hypertension): Qualifiers: Hypertension type: unspecified Qualified Code(s): I10 - Essential (primary) hypertension Code(s): I10 - Essential (primary) hypertension Status: Chronic Assessment and Plan: Was treated with metoprolol for hypertension, will need to change to another medication due to his bradycardia now that he is taking sotalol. Added amlodipine 5 mg daily; blood pressure improving Subjective Date/time seen: 11/15/21 12:27 Interval history: Follow-up paroxysmal atrial fibrillation, sotalol loading 11/13/2021: This is a 65-year-old man with paroxysmal atrial fibrillation diagnosed last year. He has been in the hospital several times with recurrences of this. He is back in sinus rhythm after receiving IV diltiazem infusion last evening. I will transition him now from metoprolol to sotalol. I believe with multiple recurrences like this requiring repeat hospitalization it is time to advance his antiarrhythmic regimen. I will continue the apixaban that has been started for anticoagulation. Date of service 11/14/2021: Feeling fine. Blood pressure elevated. Pulse generally 60-85, occasionally in the 50s at night. Telemetry shows NSR, no AFib or ventricular tachycardia Date of service 11/15/2021: Feeling fine, up and about in his room. Heart rate is generally 50s-70, occasionally in the upper 40s. No dizziness. Does have some chronic SERRANO secondary to COPD. Review of Systems Constitutional: Constitutional: Denies fatigue Eyes: Eyes: Reports no additional eye complaints ENT: Denies epistaxis Cardiovascular: Cardiovascular: Denies chest pain, Denies pedal edema, Denies lightheadedness and Denies dyspnea Respiratory: Respiratory: Denies dyspnea, Reports dyspnea on exertion and Denies wheezing Gastrointestinal: Gastrointestinal: Denies abdominal pain Genitourinary: Genitourinary: Denies dysuria Musculoskeletal: Musculoskeletal: Reports no additional musculoskeletal complaints Integumentary/Breasts: Skin/Breast: Denies rash Neurologic: Denies behavioral changes and Denies confusion Psychiatric: Psychiatric: Denies behavioral changes and Denies confusion Endocrine: Endocrine: Denies fatigue Allergic/Immunologic: Allergic/Immunologic: Denies wheezing Exam Const: General: comfortable and no acute distress; No confusion Orientation/consciousness: No confusion HENMT: Mouth: Yes moist mucous membranes Eyes: EOM: EOMs intact bilaterally Neck: Neck: supple Resp: Effort & Inspection: normal respiratory effort Auscultation: clear to auscultation bilaterally Cardio: Rate: regular rate Rhythm: regular rhythm Heart sounds: no murmurs Skin: General skin exam: normal color and no rashes or lesions noted Neuro: General: No confusion Cognition (Neuro): normal cognition Speech: normal speech Extrem: General: no edema and no pedal edema Psych: Mental Status: mental status grossly normal Affect: normal affect Objective Data Vital Signs Vital Signs: Vital Signs - 24 hr 11/14/21 14:00 11/14/21 16:00 11/14
--- NOTE | 2021-11-15 22:51 | ECG_ITS ---
Measurements Intervals [place] Rate: 55 P: 78 [place]: 160 QRS: 48 QRSD: 88 T: 61 QT: 491 QTc: 472 Interpretive Statements SINUS BRADYCARDIA WITH SINUS ARRHYTHMIA PROLONGED QT INTERVAL ABNORMAL ECG Electronically Signed On 11-17-2021 13:28:35 CDT by Brock Seymour D.O.
[2021-11-16] VITALS (10 sets, daily range): BP systolic 122–127; BP diastolic 56–64; PULSE 44–55; RESP 18–20; TEMP 36.2–36.6; O2SAT 96–99
[2021-11-16] MEDS: FLUTICASONE/UMECLIDIN/VILANTER 100-62.5-25 MCG ELLIPTA 1 PUFF INHALATION (08:02)
[2021-11-16] MEDS: amLODIPine BESYLATE 5 MG TABLET PO (08:31)
[2021-11-16] MEDS: ESCITALOPRAM OXALATE 10 MG TABLET PO (08:31)
[2021-11-16] MEDS: APIXABAN 5 MG TABLET PO (08:31)
[2021-11-16] MEDS: FOLIC ACID 1 MG TABLET PO (08:32)
[2021-11-16] MEDS: LORATADINE 10 MG TABLET PO (08:32)
[2021-11-16] MEDS: SOTALOL HCL 80 MG TABLET PO (09:03)
--- NOTE | 2021-11-16 09:11 | PM.DS ---
DS: Admitting Diagnosis Discharge Date 11/16/2021 Admitting Diagnosis Atrial fibrillation DS: Discharge Diagnosis Discharge Diagnosis (1) Paroxysmal atrial fibrillation: Code(s): I48.0 - Paroxysmal atrial fibrillation Status: Acute Assessment and Plan: Problematic recurrent paroxysmal atrial fibrillation Remaining in sinus rhythm Anticoagulated with Eliquis Being loaded on sotalol QTc has been stable thus far Rec'd 6th dose this a.m. (2) Encounter for monitoring anti-arrhythmic therapy: Code(s): Z51.81 - Encounter for therapeutic drug level monitoring; Z79.899 - Other half-way (current) drug therapy Status: Acute Assessment and Plan: Being monitored on telemetry while loading with sotalol, evaluating for any proarrhythmic effect or QT prolongation. No ventricular arrhythmias observed on telemetry QTc has been stable. QTc after 6th dose 460msec. Discussed with nicolas Sam for discharge with close follow up (3) HTN (hypertension): Qualifiers: Hypertension type: unspecified Qualified Code(s): I10 - Essential (primary) hypertension Code(s): I10 - Essential (primary) hypertension Status: Chronic Assessment and Plan: Was treated with metoprolol for hypertension, will need to change to another medication due to his bradycardia now that he is taking sotalol. Added amlodipine 5 mg daily; blood pressure at goal DS: Summary Hospital Course Hospital Course: Patient entered the hospital following an episode of atrial fibrillation with rapid ventricular response. He converted to sinus rhythm in the ED but since he has had multiple presentations with atrial fibrillation the decision was made to start him on antiarrhythmic therapy. He was started on sotalol and kept in the hospital while being loaded with this medication for monitoring. No complications of sotalol, specifically he did not experience any ventricular arrhythmias or significant QT prolongation. He is stable and ready for discharge home today. Status at Discharge Overall status at discharge: patient is back to baseline Time Spent with Patient Time attestation: Total time spent providing and/or coordinating discharge services: Time spent: Greater than 30 minutes Exam Const: General: comfortable and no acute distress; No confusion Orientation/consciousness: No confusion HENMT: Mouth: Yes moist mucous membranes Eyes: Sclera: sclerae normal Pupils: Equal, round and reactive pupils present EOM: EOMs intact bilaterally Neck: Neck: supple and no JVD Resp: Effort & Inspection: normal respiratory effort Auscultation: clear to auscultation bilaterally Cardio: Rate: regular rate Rhythm: regular rhythm Heart sounds: no murmurs GI: Auscultation: normal bowel sounds Skin: General skin exam: normal color and no rashes or lesions noted Neuro: General: No confusion Cranial nerves: Yes Equal, round and reactive pupils present Cognition (Neuro): normal cognition Speech: normal speech Extrem: General: normal to inspection, no edema and no pedal edema Psych: Mental Status: mental status grossly normal Affect: normal affect Discharge Plan Discharge Attending physician on discharge: Eugenio Le Discharging Clinician: Florence Wiseman Patient Disposition: Home, Self-Care Activity: may shower Diet: regular Discharge Instructions: You have been started on a medication called sotalol. There are certain medications that interact with this medication, so please contact our office before starting any new medications. Patient Instructions: Antibiotic Form, Sotalol (By mouth), A-fib (Atrial Fibrillation) (DC) Stand Alone Forms: General Discharge Information Follow-up/Referrals: Kendrick Block MD [Physician] - (You have an appointment with Roselyn Mckeon NP on 11/30/21 at 1:00. Please arrive at 12:45.) Discharge Medications: New sotalol 80 mg Tablet
[2021-11-16] MEDS: PANTOPRAZOLE 40 MG TABLET PO (09:51)
--- NOTE | 2021-11-16 11:08 | ECG_ITS ---
Measurements Intervals [place] Rate: 49 P: 80 [place]: 158 QRS: 47 QRSD: 97 T: 57 QT: 509 QTc: 460 Interpretive Statements SINUS BRADYCARDIA VOLTAGE CRITERIA FOR LVH BASELINE ARTIFACT- I, III, AVR, AVL ABNORMAL ECG Electronically Signed On 11-16-2021 11:47:34 CDT by Brock Seymour D.O.
== END 2021-11-16 14:44 | disposition home or self-care (01) | DRG 310 ==
LOC: ANHED 05:43 → ANHIMU 05:53
PROVIDERS: Admitting Provider Internal Medicine Cardiovascular Disease; Emergency Provider Emergency Medicine; PCP Family Medicine; Visit Provider Internal Medicine Cardiovascular Disease
DX: I48.0 Paroxysmal atrial fibrillation (principal); I10 Essential (primary) hypertension; Z79.899 Other long term (current) drug therapy; Z51.81 Encounter for therapeutic drug level monitoring; F17.210 Nicotine dependence, cigarettes, uncomplicated; F32.9 Major depressive disorder, single episode, unspecified; J43.9 Emphysema, unspecified; Z82.49 Family history of ischemic heart disease and other diseases of the circulatory system; Z79.51 Long term (current) use of inhaled steroids; Z79.01 Long term (current) use of anticoagulants
CPT/HCPCS: 36415; 80053; 81001; 83735; 85025; 85610; 85730; 93005; 94640; 96361; 96374; 96375; 96376; 99285; A9270; G0378; J7040

== ENCOUNTER 2021-12-01 15:34 | Outpatient (CLI) | payer MEDICARE, OTHER, SELFPAY ==
--- NOTE | ~2021-12-01 | XR_ITS ---
EXAM: [id number]_CR HISTORY: pain across 1-3 metatarsals after dropping object . COMPARISON: None available. FINDINGS: Decreased mineralization. Nondisplaced minimally comminuted distal third metatarsal shaft fracture. No lytic or blastic lesion. Plantar, Achilles, and peroneal enthesopathy. Os navicularis. N o erosion or periosteal change. Soft tissues within normal limits. IMPRESSION: Minimally comminuted nondisplaced distal third metatarsal shaft fracture. Reviewed, dictated and finalized at location K. IMPRESSION: Minimally comminuted nondisplaced distal third metatarsal shaft fra cture.
== END 2021-12-01 15:35 | disposition home or self-care (01) ==
LOC: CHSIMG 15:37
PROVIDERS: PCP Family Medicine; Visit Provider Family Medicine
DX: S92.334A Nondisplaced fracture of third metatarsal bone, right foot, initial encounter for closed fracture (principal); M79.671 Pain in right foot
CPT/HCPCS: 73630

== ENCOUNTER 2021-12-29 15:00 | Outpatient (CLI) | payer MEDICARE, OTHER, SELFPAY ==
--- NOTE | ~2021-12-29 | CT_ITS ---
EXAMINATION:CT lung screening DATE: 12/29/2021 15:18 INDICATION: Personal history of nicotine dependence. Current smoker with 47 pack year history. TECHNIQUE: Computed tomography (CT) of the chest was performed without intravenous contrast. Automate d exposure control and iterative reconstruction technique were employed. The dose-length product (DLP ) was 73.40 mGy-cm. COMPARISON: Chest CT 07/19/2020 FINDINGS: There is moderate emphysema. Calcified bilateral lung nodules and calcified hilar and media stinal lymph nodes are consistent with old granulomatous disease. There is stable scarring at the dylan g apices. No pleural effusion. The heart size is normal. There are coronary artery calcifications. No pericardial effusion. There is a small sliding hiatal hernia. There is mild thoracic spondylosis. IMPRESSION: 1. Lung-RADS category 2: Benign appearance or behavior. Continue annual screening with noncontrast lo w-dose chest CT in 12 months. Reviewed, dictated and finalized at location B. IMPRESSION: 1. Lung-RADS category 2: Benign appearance or behavior. Continue annual screeni ng with noncontrast low-dose chest CT in 12 months.
== END 2021-12-29 15:01 | disposition home or self-care (01) ==
PROVIDERS: PCP Family Medicine; Visit Provider Nurse Practitioner Family
DX: Z12.2 Encounter for screening for malignant neoplasm of respiratory organs (principal); Z87.891 Personal history of nicotine dependence
CPT/HCPCS: 71271

== ENCOUNTER 2023-04-05 13:50 | Outpatient (CLI) | payer MEDICARE, OTHER, SELFPAY ==
--- NOTE | ~2023-04-05 | CT_ITS ---
EXAMINATION: CT lung screening DATE: 04/05/2023 14:13 INDICATION: Personal history nicotine dependence, current smoker with 45 pack year history TECHNIQUE: Computed tomography (CT) of the chest was performed without intravenous contrast. The dose -length product (DLP) was 76.15 mGy-cm. Automated exposure control and iterative reconstruction techn Daixeue were employed. COMPARISON: 12/29/2021 FINDINGS: There is moderate emphysema. Scarring is noted in the lung apices. Calcified pulmonary nodu les and calcified bilateral hilar and mediastinal lymph nodes are consistent with old granulomatous d isease. No pleural effusion or pneumothorax. The heart size is normal. There is mild thoracic spondyl osis. IMPRESSION: 1. Lung-RADS category 1: Negative. Continue annual screening with noncontrast low-dose chest CT in 12 months. Reviewed, dictated and finalized at location L. IMPRESSION: 1. Lung-RADS category 1: Negative. Continue annual screening with noncontrast l ow-dose chest CT in 12 months.
== END 2023-04-05 13:51 | disposition home or self-care (01) ==
LOC: CHSIMG 13:51
PROVIDERS: PCP Family Medicine; Visit Provider Family Medicine
DX: Z12.2 Encounter for screening for malignant neoplasm of respiratory organs (principal); Z87.891 Personal history of nicotine dependence
CPT/HCPCS: 71271

== ENCOUNTER 2023-09-27 15:04 | Outpatient (CLI) | payer MEDICARE, OTHER, SELFPAY ==
[2023-09-27 16:21] LABS: Basophils Absolute Auto 0.1 K/mm3 (0.0-0.1); Basophils Percent Auto 0.9 % (0.2-1.2); Eosinophils Absolute Auto 0.5 K/mm3 (0-0.3); Eosinophils Percent Auto 4.2 % (0-4.4); Hematocrit 40.5 % (42.0-52.0); Hemoglobin 13.2 g/dL (14.0-18.0); Immature Granulocyte Absolute 0.04 K/mm3 (0.00-0.031); Immature Granulocyte Percent A 0.4 % (0-0.5); Lymphocytes Absolute Auto 2.85 K/mm3 (0.9-3.2); Lymphocytes Percent Auto 25.4 % (18.3-44.2); Mean Corpuscular HGB Conc 32.6 g/dl (32-36); Mean Corpuscular Hemoglobin 30.3 pg (26-34); Mean Corpuscular Volume 93.1 fl (80-100); Mean Platelet Volume 9.3 fl (7.4-10.4); Monocytes Absolute Auto 0.8 K/mm3 (0.1-0.6); Monocytes Percent Auto 7.3 % (2.6-8.5); Neutrophils Percent Auto 61.8 % (45.5-73.1); Platelet Count Result 311 k/mm3 (150-375); Red Blood Count 4.35 M/mm3 (4.6-6.20); Red Cell Distribution Width 13.5 % (11.5-14.5); White Blood Count 11.2 K/mm3 (4.5-10.0)
[2023-09-27 16:31] LABS: Anion Gap 4 mmol/L (8-16); Blood Urea Nitrogen 18 mg/dL (9-20); Carbon Dioxide 27 mmol/L (22-30); Chloride 107 mmol/L (98-107); Estimated Glomerular Filt Rate > 60; Glucose 95 mg/dL (65-110); Potassium 4.1 mmol/L (3.4-5.0); Sodium 138 mmol/L (137-145)
== END 2023-09-27 15:05 | disposition home or self-care (01) ==
PROVIDERS: PCP Family Medicine; Visit Provider Internal Medicine Cardiovascular Disease
DX: I48.0 Paroxysmal atrial fibrillation (principal)
CPT/HCPCS: 36415; 80048; 85025

== ENCOUNTER 2024-04-10 15:54 | Outpatient (CLI) | payer MEDICARE, OTHER, SELFPAY ==
--- NOTE | ~2024-04-10 | CT_ITS ---
EXAMINATION: CT lung screening DATE: 04/10/2024 16:17 INDICATION: Z87.891 - Personal history of nicotine dependence TECHNIQUE: Computed tomography (CT) of the chest was performed without intravenous contrast. Addition al 3D reconstructions utilizing coronal maximum intensity projection (MIP) were performed. Automated exposure control and iterative reconstruction technique were employed. The dose-length product was 12 1.74 mGy-cm. COMPARISON: 04/05/2023 FINDINGS: Mild upper lobe paraseptal predominant emphysema stable appearance of moderate biapical pleural-paren chymal scarring.. Again seen are few scattered calcified pulmonary nodules along with calcified bilat eral hilar and mediastinal lymph nodes consistent with old granulomatous disease. No other noncalcifi ed pulmonary nodules, pneumonia, pulmonary edema or pleural effusion. Heart size is normal. Atheroscl erotic coronary artery calcifications. No pericardial effusion. Thoracic aorta is normal in caliber. No pathologically enlarged thoracic lymphadenopathy. Visualized upper abdomen is unremarkable. Mild t horacic spondylosis. IMPRESSION: 1. Lung-RADS category 1: Negative. Continue annual screening with noncontrast low-dose chest CT in 12 months. Reviewed, dictated and finalized at location A. IMPRESSION: 1. Lung-RADS category 1: Negative. Continue annual screening with noncontrast l ow-dose chest CT in 12 months.
== END 2024-04-10 15:55 | disposition home or self-care (01) ==
PROVIDERS: PCP Family Medicine; Visit Provider Nurse Practitioner Family
DX: Z12.2 Encounter for screening for malignant neoplasm of respiratory organs (principal); Z87.891 Personal history of nicotine dependence
CPT/HCPCS: 71271

== ENCOUNTER 2024-05-18 08:48 | Outpatient (CLI) | payer MEDICARE, OTHER, SELFPAY ==
--- NOTE | ~2024-05-18 | US_ITS ---
EXAMINATION: US aorta [facility] DATE: 05/18/2024 09:08 INDICATION: Abdominal aortic aneurysm screening with risk factors of hypertension and smoking TECHNIQUE: Grayscale, color Doppler, and pulsed Doppler images of the aorta and common iliac arteries were obtained. COMPARISON: None. FINDINGS: The proximal aorta measures 2.2 cm maximal AP diameter. The mid aorta measures 2.0 cm. The distal aor ta measures 1.7 cm. The right common iliac artery measures 8 mm. The left common iliac artery measure s 6 mm. IMPRESSION: 1. Normal caliber abdominal aorta. Reviewed, dictated and finalized at location A.
== END 2024-05-18 08:49 | disposition home or self-care (01) ==
LOC: CHSIMG 08:50
PROVIDERS: PCP Family Medicine; Visit Provider Internal Medicine Cardiovascular Disease
DX: Z13.6 Encounter for screening for cardiovascular disorders (principal); Z72.0 Tobacco use
CPT/HCPCS: 76706

== ENCOUNTER 2024-09-15 04:43 | Emergency (ER) | payer MEDICARE, OTHER, SELFPAY ==
[2024-09-15] VITALS (8 sets, daily range): BP systolic 123–154; BP diastolic 55–71; PULSE 56–77; RESP 14–22; TEMP 36.7; O2SAT 92–100
--- NOTE | 2024-09-15 05:51 | ED.SOB ---
HPI - SOB/Dyspnea General Chief Complaint: Shortness of Breath/Dyspnea Stated Complaint: Short of Breath Time Seen by Provider: 09/15/24 04:54 History of Present Illness HPI Narrative: 68-year-old male with a past medical history including COPD and emphysema, current daily smoker, history of paroxysmal AFib on Eliquis. He was has a history of hypertension and generalized anxiety disorder. He presents via EMS for concerns of hypoxia and difficulty in breathing for last day or 2. Patient states that he has been having a COPD flare these last few days but has run out of his home inhaler medications secondary to insurance issues. Was found to be short of breath and hypoxic on EMS arrival and they administered a DuoNeb and 125 mg of Solu-Medrol with his clinical exam showing tachypnea with wheezing. On arrival patient is saturating 92% on room air, no longer tachypneic in saying he is much improved. He is accompanied by his daughter provides collateral formation. They tell me that patient does not have any of his inhalers at home secondary to insurance issues and that they are getting refills at the pharmacy that are currently ready picking supervisor at the cannot afford them. No recent steroids, no recent illnesses, no fever or chills. Sick contacts with cold and flu-like symptoms. Patient sources a productive cough which is at his baseline. No change or quality or no phlegm production. No chest pain, no headache, vision change, nausea, vomiting, abdominal pain or back pain. Related Data Home Medications ?Medication ?Instructions ?Recorded ?Confirmed ?Last Taken ?Type light mineral oil 1 %-mineral oil 2 drp ophthalmic (eye) BID 11/13/21 04/12/24 11/12/21 History 4.5 % eye drops (Soothe XP) Allergies Allergy/AdvReac Type Severity Reaction Status Date / Time No Known Allergies Allergy Verified 07/19/24 09:43 Review of Systems Review of Systems: As reviewed above in HPI [facility] Past Medical History Medical History Paroxysmal atrial fibrillation Anxiety Atrial fibrillation Emphysema/COPD Tobacco dependence COPD (chronic obstructive pulmonary disease) Depression Light-headedness Vertigo HTN (hypertension) Surgical History Surgical History No significant past surgical history Family History Family History Mother CAD (coronary artery disease) Chronic obstructive pulmonary disease Father Blood clot in vein Social History Social History Smoking packs per day: 0.5 Smoking cigarettes per day: 10.0 Years smoked: 45 Smoking pack-years: 22.50 Smoking status: Current every day smoker Tobacco type: cigarettes Second hand tobacco smoke exposure: No Smoking end date: 03/30/20 Alcohol intake: never Drinks per week: 18 Substance use: never Substance use type: does not use Last use: Quit drinking alcohol 18 months ago Gender identity (if verbalized by the patient): Male Sexual Orientation (if Verbalized by the Patient): Straight or Heterosexual Spiritual care concerns: No Agree to blood products: Yes Exam Narrative: GENERAL: Thin and frail, appears older than stated age. HEAD: [Normocephalic, atraumatic.] EYES: [PERRLA and EOMI.] ENT: Nares clear, no rhinorrhea or epistaxis. Mucous membranes moist. NECK: Supple. CHEST: Coarse breath sounds with wheezing audible on end expiration, no accessory muscle use. No tripoding, conversing in full sentences. HEART: [Regular rate and rhythm]. No murmur heard. [Normal peripheral pulses.] ABDOMEN: [Soft, nondistended], [nontender], [No rigidity or guarding] EXTREMITIES: Normal range of motion. [No edema.] SKIN: Warm, dry, no rash. NEURO: [No focal deficits]. Alert and oriented [x3.] PSYCH: [Normal mood and affect.] Course Vital Signs Vital signs: Vital Signs Temperature 36.7 C 09/15/24 04:44 Pulse Rate 66 09/15/24 04:44 Respiratory Rate 17 09/15/24 04:44 Pulse Oximetry 98 09/15/24 04:44 Oxygen Delivery Room Air 09/15/24 04:44 Temperature 36.7 C 09/15/24 04:44 Pulse Rate 56 L 09/15/24 06:46 Respiratory Rate 14 09/15/24 06:46 Blood Pressure 142/60 H 09/15/24 06:46 Pulse Oximetry 100 09/15/24 06:46 Oxygen Delivery Room Air 09/15/24 04:52 MDM - SOB/Dyspnea MDM Narrative Medical decision making narrative: 68-year-old male with history of COPD, daily smoker, hypertension, generalized anxiety disorder, paroxysmal AFib on Eliquis. Has run out of his inhalers at home for his treatment of COPD and has been having a flare for the past few days. EMS found him hypoxic and tachypneic administered DuoNebs and albuterol, Solu-Medrol with improvement in his vitals and breathing. He is still having wheezing and some coarse breath sounds bilaterally. Has sick contacts. He otherwise is not any acute distress, no tachycardia or hypertension, no longer tachypneic, no fever or hypoxia. He is saturating 92% on room air. Does have wheezing suspicious for continued COPD exacerbation. Potential for upper respiratory infection versus pneumonia versus COVID, influenza. Low suspicion other process at this time. Respiratory was called to assist and start the patient on continuous nebulization of albuterol and Atrovent and will be observed. Here he received steroids in route, x-ray and basic labs as well as a COVID, flu panel was ordered. He was recently re-evaluated and placed on pulse ox and gambling monitor. Family at bedside was made aware of the plan of care going forward he can likely safely discharged assuming improvement and stable vitals. Workup shows no significant leukocytosis, normal hemoglobin, normal platelet count. Electrolytes within normal limits, normal renal and hepatic function panel. Chest x-ray shows emphysema, no consolidation or pneumonia. Patient was re-evaluated after breathing treatments and had improvement. He is safe for stable discharge home at this time and will be given prescription prednisone for the next several days. 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 Differential Diagnosis Differential diagnosis: Likely acute exacerbation of chronic obstructive airways disease, community acquired pneumonia, asthma with exacerbation and other Medical Records Attestation: I reviewed the patient's medical records. Lab Data Attestation: I reviewed the patient's lab results. 09/15/24 05:47 09/15/24 05:47 Labs: Lab Results 09/15/24 Range/Units 05:47 WBC 11.7 H (4.5-10.0) K/mm3 RBC 4.52 L (4.6-6.20) M/mm3 Hgb 13.2 L (14.0-18.0) g/dL Hct 41.1 L (42.0-52.0) % MCV 90.9 (80-100) fl MCH 29.2 (26-34) pg MCHC 32.1 (32-36) g/dl RDW 16.9 H (11.5-14.5) % Plt Count 305 (150-375) k/mm3 MPV 9.7 (7.4-10.4) fl Immature Gran % (Auto) 0.4 (0-0.5) % Neut % (Auto) 52.5 (45.5-73.1) % Lymph % (Auto) 30.1 (18.3-44.2) % [place] % (Auto) 8.3 (2.6-8.5) % Eos % (Auto) 7.8 H (0-4.4) % Baso % (Auto) 0.9 (0.2-1.2) % Lymph # (Auto) 3.53 H (0.9-3.2) K/mm3 [place] # (Auto) 1.0 H (0.1-0.6) K/mm3 Eos # (Auto) 0.9 H (0-0.3) K/mm3 Baso # (Auto) 0.1 (0.0-0.1) K/mm3 Abs Immat Gran (auto) 0.05 H (0.00-0.031) K/mm3 Absolute Neuts (auto) 6.2 (1.3-6.7) K/mm3 Absolute Nucleated RBC 0.000 (0.0-0.012) K/mm3 Nucleated RBC % 0.0 (0.0-0.2) % Sodium 142 (137-145) mmol/L Potassium 4.1 (3.4-5.0) mmol/L Chloride 107 (98-107) mmol/L Carbon Dioxide 26 (22-30) mmol/L Anion Gap 9 (4-12) mmol/L BUN 16 (9-20) mg/dL Creatinine 1.00 (0.7-1.3) mg/dL Estim Creat Clear Calc 56 ml/min Estimated GFR > 60 (59 - ) Glucose 98 (65-110) mg/dL Calcium 9.0 (8.4-10.2) mg/dL Influenza A (RT-PCR) Negative (Negative) Influenza B (RT-PCR) Negative (Negative) RSV (RT-PCR) Negative (Negative) SARS-CoV-2 RNA (RT-PCR) Negative (Negative) Imaging Data Attestation: I personally reviewed and interpreted this imaging study as follows: My impression: Impressions Chest X-Ray 09/15/24 06:51 IMPRESSION: 1. Emphysema. No other acute cardiopulmonary disease. Discharge Plan Discharge Clinical Impression: Acute exacerbation of chronic obstructive pulmonary disease Patient Disposition: Home, Self-Care Condition: Stable Instructions: Antibiotic Form, Community Acquired Pneumonia (ED) Additional Instructions: We sent to prescription for some steroids, follow-up with regular doctor, good your pharmacy and picking supervisor your inhaler prescriptions and other medications. Return with any new or worsening concerns. Her chest x-ray shows no pneumonia. Patient Language: [place] Prescriptions: New prednisone 50 mg tablet 50 mg PO DAILY 5 Days Qty: 5 0RF No Action Eliquis 5 mg tablet 5 mg PO BID Qty: 90 0RF Soothe XP 1-4.5 % Drops 2 drp OPHTHALMIC (EYE) BID sotalol 80 mg Tablet 80 mg PO Q12HR 30 Days Qty: 60 3RF amlodipine [Norvasc] 5 mg Tablet 5 mg PO QAM 30 Days Qty: 30 3RF albuterol sulfate 2.5 mg /3 mL (0.083 %) solution for nebulization See Rx Instructions .ROUTE .COMPLEX Qty: 180 3RF Dose Instruction: USE 1 VIAL IN NEBULIZER EVERY 4 TO 6 HOURS NEEDED FOR SHORTNESS OF BREATH FOR WHEEZING Rx Instructions: USE 1 VIAL IN NEBULIZER EVERY 4 TO 6 HOURS NEEDED FOR SHORTNESS OF BREATH FOR WHEEZING escitalopram oxalate 10 mg tablet See Rx Instructions .ROUTE .COMPLEX Qty: 90 0RF Dose Instruction: Take 1 tablet by mouth once daily Rx Instructions: Take 1 tablet by mouth once daily Breztri Aerosphere 160-9-4.8 mcg/actuation HFA aerosol inhaler See Rx Instructions .ROUTE .COMPLEX Qty: 11 0RF Dose Instruction: Inhale 2 puffs by mouth twice daily Rx Instructions: Inhale 2 puffs by mouth twice daily Breztri Aerosphere 160-9-4.8 mcg/actuation HFA aerosol inhaler See Rx Instructions .ROUTE .COMPLEX Qty: 11 1RF Dose Instruction: INHALE 2 PUFFS TWICE DAILY Rx Instructions: INHALE 2 PUFFS TWICE DAILY lorazepam [Ativan] 1 mg tablet 1 mg PO DAILY PRN (Reason: anxiety) Qty: 30 0RF loratadine [Allergy Relief (loratadine)] 10 mg tablet See Rx Instructions .ROUTE .COMPLEX Qty: 90 0RF Dose Instruction: Take 1 tablet by mouth once daily Rx Instructions: Take 1 tablet by mouth once daily benzonatate 200 mg capsule See Rx Instructions .ROUTE .COMPLEX Qty: 90 0RF Dose Instruction: TAKE 1 CAPSULE BY MOUTH TWICE DAILY NEEDED FOR COUGH Rx Instructions: TAKE 1 CAPSULE BY MOUTH TWICE DAILY NEEDED FOR COUGH albuterol sulfate [Ventolin HFA] 90 mcg/actuation HFA aerosol inhaler See Rx Instructions .ROUTE .COMPLEX Qty: 18 0RF Dose Instruction: INHALE 2 PUFFS BY MOUTH EVERY 4 HOURS NEEDED FOR SHORTNESS OF BREATH FOR WHEEZING Rx Instructions: INHALE 2 PUFFS BY MOUTH EVERY 4 HOURS NEEDED FOR SHORTNESS OF BREATH FOR WHEEZING Follow-up/Referrals: Osito Ramesh DO [Primary Care Provider] - Time of Disposition: 07:05
[2024-09-15 05:52] LABS: Basophils Absolute Auto 0.1 K/mm3 (0.0-0.1); Basophils Percent Auto 0.9 % (0.2-1.2); Eosinophils Absolute Auto 0.9 K/mm3 (0-0.3); Eosinophils Percent Auto 7.8 % (0-4.4); Hematocrit 41.1 % (42.0-52.0); Hemoglobin 13.2 g/dL (14.0-18.0); Immature Granulocyte Absolute 0.05 K/mm3 (0.00-0.031); Immature Granulocyte Percent A 0.4 % (0-0.5); Lymphocytes Absolute Auto 3.53 K/mm3 (0.9-3.2); Lymphocytes Percent Auto 30.1 % (18.3-44.2); Mean Corpuscular HGB Conc 32.1 g/dl (32-36); Mean Corpuscular Hemoglobin 29.2 pg (26-34); Mean Corpuscular Volume 90.9 fl (80-100); Mean Platelet Volume 9.7 fl (7.4-10.4); Monocytes Percent Auto 8.3 % (2.6-8.5); Neutrophils Absolute Auto 6.2 K/mm3 (1.3-6.7); Neutrophils Percent Auto 52.5 % (45.5-73.1); Platelet Count Result 305 k/mm3 (150-375); Red Blood Count 4.52 M/mm3 (4.6-6.20); Red Cell Distribution Width 16.9 % (11.5-14.5); White Blood Count 11.7 K/mm3 (4.5-10.0)
[2024-09-15] MEDS: IPRATROPIUM BR 0.02% INH SOLN 0.5 MG/2.5 ML VIAL 1 MG INHALATION (06:00)
[2024-09-15] MEDS: ALBUTEROL SULFATE NEB 2.5 MG/3 ML INH 10 MG INHALATION (06:00)
[2024-09-15 06:07] LABS: Anion Gap 9 mmol/L (4-12); Blood Urea Nitrogen 16 mg/dL (9-20); Carbon Dioxide 26 mmol/L (22-30); Chloride 107 mmol/L (98-107); Estimated CRCL calculation 56 ml/min; Estimated Glomerular Filt Rate > 60; Glucose 98 mg/dL (65-110); Potassium 4.1 mmol/L (3.4-5.0); Sodium 142 mmol/L (137-145)
[2024-09-15 06:29] LABS: Influenza A QL RT-PCR Negative (Negative); Influenza B QL RT-PCR Negative (Negative); RSV RNA, RT-PCR Negative (Negative); SARS-CoV-2 RNA PCR Negative (Negative)
== END 2024-09-15 08:26 | disposition home or self-care (01) ==
PROVIDERS: Emergency Provider Student in an Organized Health Care Education/Training Program; PCP Family Medicine
DX: J44.1 Chronic obstructive pulmonary disease with (acute) exacerbation (principal); J43.9 Emphysema, unspecified; Z20.822 Contact with and (suspected) exposure to COVID-19; I48.0 Paroxysmal atrial fibrillation; I10 Essential (primary) hypertension; F41.1 Generalized anxiety disorder; F17.210 Nicotine dependence, cigarettes, uncomplicated; Z79.01 Long term (current) use of anticoagulants; Z79.899 Other long term (current) drug therapy
CPT/HCPCS: 36415; 71045; 80048; 85025; 87637; 93005; 94640; 96374; 99284

== ENCOUNTER 2024-10-24 13:36 | Outpatient (CLI) | payer MEDICARE, OTHER, SELFPAY ==
--- NOTE | ~2024-10-24 | CT_ITS ---
EXAMINATION: CT lung screening DATE: 10/24/2024 13:59 INDICATION: SMOKER SCREENING,COUGH,COPD,EMPHYSEMA TECHNIQUE: Computed tomography (CT) of the chest was performed without intravenous contrast. Addition al 3D reconstructions utilizing coronal maximum intensity projection (MIP) were performed. Automated exposure control and iterative reconstruction technique were employed. The dose-length product was 78 .93 mGy-cm. COMPARISON: 04/10/2024 FINDINGS: Mild to moderate upper lung and paraseptal predominant emphysema. Stable appearance of moderate biapi armando pleural-parenchymal scarring. There are few scattered bilateral calcified pulmonary nodules along with calcified mediastinal and bilateral hilar lymph nodes consistent with old granulomatous disease . No other noncalcified pulmonary nodules, pneumonia, pulmonary edema or pleural effusion. Heart size is normal. Atherosclerotic coronary artery calcifications. No pericardial effusion. Thoracic aorta i s normal in caliber. No pathologically enlarged thoracic lymphadenopathy. Small sliding-type hiatal h ernia. There is mild wall thickening diffusely throughout the esophagus which suggests possible esoph agitis related to reflux. Visualized upper abdomen is unremarkable. Thoracic kyphosis with mild spond ylosis. IMPRESSION: 1. Lung-RADS category 1: Negative. Continue annual screening with noncontrast low-dose chest CT in 12 months. 2. Small sliding-type hiatal hernia with mild wall thickening diffusely throughout the esophagus whic h suggests possibility of reflux esophagitis. Reviewed, dictated and finalized at location B. IMPRESSION: 1. Lung-RADS category 1: Negative. Continue annual screening with noncontrast l ow-dose chest CT in 12 months. 2. Small sliding-type hiatal hernia with mild wall thickening diffusely through out the esophagus which suggests possibility of reflux esophagitis.
--- OUTSIDE RECORDS SUMMARY | 2024-10-24 15:13 | XMS_ITS | Clinical Summary ---
Author Organization [facility] [address] Address [address] [place] [address] Care Team Providers Care Farmer General Name Role Phone Osito Ramesh DO Primary Care Provider Allergies No known active allergies Medications budesonide-formo teroL (SYMBICORT) 160-4.5 mcg/actuation inhaler Inhale 2 puffs 2 (two) times a day Rinse mouth with water after use. Do not swallow. Active predniSONE (DELTASONE) 20 mg tablet Take by mouth Active loratadine (CLARITIN) 10 mg tablet Take 1 tablet (10 mg total) by mouth daily Active albuterol HFA (PROVENTIL HFA,VENTOLIN HFA,PROAIR HFA) 90 mcg/actuation inhaler Inhale 2 puffs every 6 (six) hours as needed Active citalopram (CeleXA) 10 mg tablet Take 1 tablet (10 mg total) by mouth daily Active albuterol 2.5 mg /3 mL (0.083 %) nebulizer solution Take 3 mL (2.5 mg total) by nebulization every 6 (six) hours as needed Active LORazepam (ATIVAN) 1 mg tablet Take 1 tablet (1 mg total) by mouth every 6 (six) hours as needed 0 2 Active escitalopram (LEXAPRO) 10 mg tablet Take 1 tablet (10 mg total) by mouth daily 2 Active benzonatate (TESSALON) 100 mg capsule TAKE 1 TO 2 CAPSULES BY MOUTH EVERY 8 HOURS NEEDED FOR COUGH 3 Active Breztri Aerosphere 160-9-4.8 mcg/actuation HFA aerosol inhaler Inhale 2 puffs 2 (two) times a day 3 Active apixaban (Eliquis) 5 mg tabletIndication s:Paroxysmal atrial fibrillation (HCC) Take 1 tablet by mouth twice daily 180 tablet 2 5 Active sotaloL (BETAPACE) 80 mg tabletIndication s:Paroxysmal atrial fibrillation (HCC) Take 1 tablet by mouth twice daily 180 tablet 5 Active amLODIPine (NORVASC) 5 mg tabletIndication s:Essential hypertension Take 1 tablet by mouth once daily 90 tablet 1 5 Active Active Problems Problem Noted Date Diagnosed Date Tobacco use 05/11/2024 Palpitations 03/22/2023 Primary hypertension 03/22/2023 Chronic anticoagulation 03/22/2023 Encounter for monitoring sotalol therapy 023 Paroxysmal atrial fibrillation 11/27/2021 Surgical History Surgery Date Site/Laterality Comments STOMACH SURGERY HERNIA REPAIR Medical History Medical History Date Comments Atrial fibrillation (HCC) COPD (chronic obstructive pulmonary disease) (HC C) Hypertension Depression Anxiety Vertigo Leukocytosis Anemia, unspecified Tobacco dependency Family History Medical History Relation Name Comments Blood Clot Father Cardiac stent Mother Coronary artery disease Mother Heart disease Mother Relation Name Status Comments Father (Age 80) Mother (Age 78) Social History Tobacco Use Types Packs/Day Years Used Date Smoking Tobacco: Every Day Cigarettes Smokeless Tobacco: Never Tobacco Cessation:Ready to Q uit: Not Asked; Counseling Given: Not Answered Sex and Gender Information Value Date Recorded Sex Assigned at Not on file 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 Gender Identity Not on file Sexual Orientation Not on file Obstetrics History Last Filed Vital Signs Vital Sign Reading Time Taken Comments Blood Pressure 130/60 05/11/2024 11:32 AM CDT Pulse 60 05/11/2024 11:32 AM CDT Temperature - - Respiratory Rate - - Oxygen Saturation 96% 05/11/2024 11:32 AM CDT Inhaled Oxygen Concentration - - Weight 63 kg (139 lb) 05/11/2024 11:32 AM CDT Height 182.9 cm (6') 05/11/2024 11:32 AM CDT Body Mass Index 18.85 05/11/2024 11:32 AM CDT Plan of Treatment Health Maintenance Due Date Last Done Comments Colon Cancer Screening-Colonoscopy 1955 Depression Screening 1955 Fall Risk Assessment 1955 Hepatitis C Screening 1955 Hepatitis B Screening 12/12/1971 DTaP/Tdap/Td Vaccine (1 - Tdap) 04/05/1996 6 Zoster Vaccine (1 of 2) 12/12/2003 Abdominal Aortic Aneurysm (A AA) Screen 2018 Well Visit 65+ 2018 Covid-19 Vaccine ( season) 2024 09/30/2021, 12/09/2020, 11/18/2020 Influenza Vaccine (#1) 2024 , 04/17/2020, 04/10/2019 Pneumococcal vaccine 65+ Completed 04/17/2020, 0803/2019 Insurance MEDICARE [facility] MEDICARE [employer] [facility] [place] [address] Care Teams Farmer General Relationship Specialty Start Date End Date Osito Ramesh DO [address] [place] [address] PCP - General Family Medicine 03/19/22
--- OUTSIDE RECORDS SUMMARY | 2024-10-24 15:13 | XMS_ITS | Clinical Summary ---
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 Gender Identity Not on file Sexual Orientation Not on file Plan of Treatment Health Maintenance Due Date Last Done Comments Colorectal Cancer Screening Colonoscopy (10 Years) 1955 Hepatitis C 12/12/1971 DTaP, Tdap and Td Vaccines ( 1 - Tdap) 1972 Zoster Vaccines (1 of 2) 12/12/2003 Pneumococcal Vaccine: 65+ Ye ars (1 of 1 - PCV) 2018 COVID-19 Vaccine (1 - 2023-2 5 season) 2024 RSV Immunization or 60+ Years (1 - 1-dose 75+ series) 2028 Meningococcal B Vaccine Aged Out No l onger eligible based on patient's age to complete this topic Meningococcal Vaccine Aged Out No rosaline lawrence eligible based on patient's age to complete this topic RSV Immunizations Under 20 Months Aged Out No longer eligible based on patient's age to complete this topic Additional Health Concerns Infection Onset Date Last Indicated MRSA 06/10/2017 06/10/2017 Care Teams [place] Relationship Specialty Start Date End Date Hung Sanchez MD [address] [place] [address] [place] Forklift Truck Operator CARDIOVASCULAR DISEASE 06/20/19
--- OUTSIDE RECORDS SUMMARY | 2024-10-24 15:13 | XMS_ITS | Referral Summary ---
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
== END 2024-10-24 13:37 | disposition home or self-care (01) ==
LOC: CHSIMG 13:41
PROVIDERS: PCP Family Medicine; Visit Provider Nurse Practitioner Family
DX: Z12.2 Encounter for screening for malignant neoplasm of respiratory organs (principal); Z87.891 Personal history of nicotine dependence; J44.9 Chronic obstructive pulmonary disease, unspecified; K44.9 Diaphragmatic hernia without obstruction or gangrene
CPT/HCPCS: 71271

== ENCOUNTER 2025-03-26 19:08 | Emergency (ER) | payer MEDICARE, OTHER, SELFPAY ==
[2025-03-26 19:10] VITALS: BP 166/68; RESP 16; TEMP 36.6; O2SAT 97
--- OUTSIDE RECORDS SUMMARY | 2025-03-26 19:11 | XMS_ITS | Clinical Summary ---
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 Gender Identity Not on file Sexual Orientation Not on file Plan of Treatment Health Maintenance Due Date Last Done Comments Colorectal Cancer Screening Colonoscopy (10 Years) 1955 Hepatitis C 12/12/1971 DTaP, Tdap and Td Vaccines ( 1 - Tdap) 1972 Pneumococcal Vaccine: 50+ Ye ars (1 of 1 - PCV) 12/12/2003 Zoster Vaccines (1 of 2) 12/12/2003 COVID-19 Vaccine (1 - 2023-2 5 season) 2025 RSV Immunization or 60+ Years (1 - 1-dose 75+ series) 2028 Meningococcal B Vaccine Aged Out No l onger eligible based on patient's age to complete this topic Meningococcal Vaccine Aged Out No rosaline lawrnece eligible based on patient's age to complete this topic RSV Immunizations Under 20 Months Aged Out No longer eligible based on patient's age to complete this topic Additional Health Concerns Infection Onset Date Last Indicated MRSA 06/10/2017 06/10/2017 Care Teams Media Relations Intern Relationship Specialty Start Date End Date Hung Sanchez MD [address] [place] [address] [place] Senior Physician CARDIOVASCULAR DISEASE 06/20/19
--- OUTSIDE RECORDS SUMMARY | 2025-03-26 19:11 | XMS_ITS | Clinical Summary ---
Author Organization [facility] [address] Address [address] [place] [address] Care Team Providers Care Validation Intern Name Role Phone Osito Ramesh DO Primary [...] (six) hours as needed 0 2 Active Breztri Aerosphere 160-9-4.8 mcg/actuation HFA aerosol inhaler Inhale 2 puffs 2 (two) times a day 3 Active apixaban (Eliquis) 5 mg tabletIndication s:Paroxysmal atrial fibrillation (HCC) Take 1 tablet by mouth twice daily 180 tablet 2 5 Active benzonatate (TESSALON) 200 mg capsule Take 1 capsule (200 mg total) by mouth 2 (two) times a day as needed 5 Active escitalopram (LEXAPRO) 20 mg tablet Take 1 tablet (20 mg total) by mouth daily 5 Active sotaloL (BETAPACE) 80 mg tabletIndication s:Paroxysmal atrial fibrillation (HCC) Take 1 tablet by mouth twice daily 180 tablet 2 5 Active amLODIPine (NORVASC) 5 mg tabletIndication s:Essential hypertension Take 1 tablet by mouth once daily 90 tablet 2 5 Active Active Problems Problem Noted Date Diagnosed Date Tobacco use 05/11/2024 Palpitations 03/22/2023 Primary hypertension 03/22/2023 Chronic anticoagulation 03/22/2023 Encounter for monitoring sotalol therapy 023 Paroxysmal atrial fibrillation 11/27/2021 Encounters Date Type Department Care Team Description 02/26/2025 2:00 PM CDT Ancillary Procedure [facility] at [address] [phone] Paroxysmal atrial fibrillation (HCC); Palpitations; Primary hypertension 02/26/2025 1:15 PM CDT Office Visit [facility] at [address] [address] Antelmo Simpson MD Chronic anticoagulation (Primary Dx); Tobacco use; Paroxysmal atrial fibrillation (HCC); Palpitations; Primary hypertension 02/26/2025 Results Follow-Up [facility] at [address] [phone] Antelmo Simpson MD Transthoracic Echo (TTE) Complete W Doppler/CF from Last 3 Months Surgical History Surgery Date Site/Laterality Comments STOMACH SURGERY HERNIA REPAIR Medical History Medical History Date Comments Atrial fibrillation (HCC) COPD (chronic obstructive pulmonary disease) Hypertension Depression Anxiety Vertigo Leukocytosis Anemia, unspecified [...] on file 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 Gender Identity Not on file Sexual Orientation Not on file Obstetrics History Last Filed Vital Signs Vital Sign Reading Time Taken Comments Blood Pressure 130/60 02/26/2025 1:13 PM CDT Pulse 60 02/26/2025 1:13 PM CDT Temperature - - Respiratory Rate - - Oxygen Saturation 97% 02/26/2025 1:13 PM CDT Inhaled Oxygen Concentration - - Weight 59.4 kg (131 lb) 02/26/2025 1:13 PM CDT Height 182.9 cm (6') 02/26/2025 1:13 PM CDT Body Mass Index 17.77 02/26/2025 1:13 PM CDT Plan of Treatment Health Maintenance Due [...] 2024 09/30/2021, 12/09/2020, 11/18/2020 Influenza Vaccine (#1) 2025 , 04/17/2020, 04/10/2019 Pneumococcal vaccine 65+ Completed 04/17/2020, 0803/2019 Procedures Procedure Name Priority Date/Time Associated Diagnosis Comments TRANSTHORACIC ECHO (TTE) COMPLETE W DOPPLER/CF WO CONTRAST Routine 02/26/2025 2:19 PM CDT Paroxysmal atrial fibrillation (HCC) Palpitations Primary hypertension from Last 3 Months Results * TRANSTHORACIC ECHO (TTE) COMPLETE W DOPPLER/CF WO CONTRAST (02/26/2025 2:19 PM CDT) Estimated EF 65 % CONS SCIMAGE EF Mod BP 71 % CONS SCIMAGE Anatomical Region Laterality Modality Ultrasound 02/26/2025 1:51 PM CDT Narrative 02/26/2025 3:01 PM CDT [facility] [address], [address], [place] [address] P:[phone] P:[phone] Echocardiographic Report Patient Name: KARAN SEXTON : 1955 Study Date: 02/26/2025 1:51:27 PM Gender: M Customer Solutions Specialist: NEIL Location: [facility] Ref Provider: ANTELMO SIMPSON Height(Cm): 183 BSA: 1.74 Weight(Kg): 59.4 Heart Rate: 57 BP: 130 / 60 Quality: Good Order Provider: ANTELMO SIMPSON PROCEDURES: Echocardiographic Report: Transthoracic echocardiogram with complete 2D, M-Mode, and color Doppler examination. With Strain Analysis. INDICATIONS: I48.0 Paroxysmal atrial fibrillation, R00.2 Palpitations, and I10 Essential (primary) hypertension. MEASUREMENTS: 2D/MM Value Range Doppler Value Range EF Mod BP 71 % [ 52 - 72 ] CLARK Vmax 1.87 cm2 [ 2.00 - 4.00 ] EF Teich MM 76 % [ 52 - 72 ] AV Mean PG 6 mmHg Estimated EF 65 % AV Peak Charles 1.76 m/s [ 1.00 - 1.70 ] LV GLS -19.61 % AV Peak PG 12 mmHg LVIDd 2D 4.63 cm [ 4.20 - 5.80 ] AV VTI 38.15 cm LVIDd MM 5.19 cm [ 4.20 - 5.80 ] LVOT Diam 1.96 cm [ 1.70 - 2.10 ] LVIDs 2D 2.88 cm [ 2.50 - 4.00 ] LVOT Peak Charles 1.10 m/s [ 0.70 - 1.10 ] LVIDs MM 2.87 cm [ 2.50 - 4.00 ] LVOT VTI 26.69 cm LVPWd 2D 0.90 cm [ 0.60 - 1.00 ] MV E Peak Charles 1.01 m/s [ 0.60 - 1.30 ] LVPWd MM 0.95 cm [ 0.60 - 1.00 ] MV A Peak Charles 0.81 m/s [ 1.00 - 1.20 ] IVSd 2D 0.73 cm [ 0.60 - 1.00 ] MV Decel Time 217 msec [ 104 - 258 ] IVSd MM 0.73 cm [ 0.60 - 1.00 ] PV Peak Charles 1.24 m/s [ 0.40 - 0.80 ] LA Dimension MM 3.41 cm [ 3.00 - 4.00 ] TR Peak Charles 2.91 m/s [ 1.00 - 2.80 ] AoR Diam MM 3.30 cm [ 3.10 - 3.70 ] TR Peak PG 34 mmHg LA Volume 43.73 ml [ 18.00 - 58.00 ] RVSP 44.00 mmHg [ 10.00 - 36.00 ] LA Volume Index 25 cc/m2 [ 16 - 28 ] RV S` 0.14 m/s ACS MM 1.38 cm [ 1.50 - 2.60 ] Lateral E` 0.09 m/s [ 0.10 - 0.15 ] RA Volume 48.65 ml Septal E` 0.08 m/s [ 0.08 - 0.15 ] E` 0.08 m/s E/E` 12 2D/MM Value Range Doppler Value Range - FINDINGS: Interpretation Site: Exam was interpreted at [facility]. Left Ventricle: Normal left ventricular systolic function. No focal wall motion abnormalities. Normal left ventricular size. Normal left ventricular wall thickness. There is pseudonormal diastolic dysfunction Grade II. Ejection fraction is measured at 71 %. Ejection Fraction is visually estimated to be 65 %. Global Longitudinal Strain is -20 %. GLS is normal. Right Ventricle: Normal right ventricular size. Normal right ventricular systolic function. Left Atrium: There is mild enlargement of left atrium. Right Atrium: The right atrium is normal in size. Atrial Septum: Normal atrial septum. Mitral Valve: Normal appearance of the mitral valve. Mild mitral valve regurgitation. There is no hemodynamically significant mitral stenosis by Doppler. Aortic Valve: Mild aortic stenosis. Mean gradient of 6.0 mmHg. Valve area of 1.9 cm2. Aortic cusps appear mildly calcified. Trileaflet aortic valve. Mild aortic valve regurgitation. Tricuspid Valve: Normal appearance of the tricuspid valve. Mild pulmonary hypertension based on right ventricular systolic pressure. Estimated peak RVSP is 44 mmHg. Mild tricuspid regurgitation. Pulmonic Valve: Normal appearance of the pulmonic valve. No pulmonic stenosis. Trivial regurgitation in the pulmonic valve. Pericardium: Normal pericardium with no significant pericardial effusion. Aorta: Normal aortic root. IVC: Dilated IVC with respiratory collapse consistent with elevated right atrial pressure (10-15 mmHg). CONCLUSIONS: Normal left ventricular systolic function. No focal wall motion abnormalities. Normal left ventricular size. Normal left ventricular wall thickness. There is pseudonormal diastolic dysfunction Grade II. Ejection fraction is measured at 71 %. Ejection Fraction is visually estimated to be 65 %. Global Longitudinal Strain is -20 %. GLS is normal. There is mild enlargement of left atrium. Mild mitral valve regurgitation. Mild aortic stenosis. Mean gradient of 6.0 mmHg. Valve area of 1.9 cm2. Aortic cusps appear mildly calcified. Trileaflet aortic valve. Mild aortic valve regurgitation. Mild pulmonary hypertension based on right ventricular systolic pressure. Estimated peak RVSP is 44 mmHg. Mild tricuspid regurgitation. Normal sinus rhythm. Electronically Signed By: Antelmo Simpson MD 02/26/2025 3:01:12 PM CDT Procedure Note Antelmo Simpson MD - 02/26/2025 [facility] [address], [place] [address] P:[phone] P:[phone] Echocardiographic Report Patient Name: KARAN SEXTON : 1955 Study Date: 02/26/2025 1:51:27 PM Gender: M Customer Solutions Specialist: NEIL Location: [facility] Ref Provider: ANTELMO SIMPSON Height(Cm): 183 BSA: 1.74 Weight(Kg): 59.4 Heart Rate: 57 BP: 130 / 60 Quality: Good Order Provider: ANTELMO SIMPSON PROCEDURES: Echocardiographic Report: Transthoracic echocardiogram with complete 2D, M-Mode, and color Dopplerexamination. With Strain Analysis. INDICATIONS: I48.0 Paroxysmal atrial fibrillation, R00.2 Palpitations, and [id number] (primary) hypertension. MEASUREMENTS: 2D/MM Value Range Doppler ValueRange EF Mod BP 71 % [ 52 - 72 ] CLARK Vmax 1.87cm2 [ 2.00 - 4.00 ] EF Teich MM 76 % [ 52 - 72 ] AV Mean PG 6mmHg Estimated EF 65 % AV Peak Charles 1.76m/s [ 1.00 - 1.70 ] LV GLS -19.61 % AV Peak PG 12mmHg LVIDd 2D 4.63 cm [ 4.20 - 5.80 ] AV VTI 38.15cm LVIDd MM 5.19 cm [ 4.20 - 5.80 ] LVOT Diam 1.96cm [ 1.70 - 2.10 ] LVIDs 2D 2.88 cm [ 2.50 - 4.00 ] LVOT Peak Charles 1.10m/s [ 0.70 - 1.10 ] LVIDs MM 2.87 cm [ 2.50 - 4.00 ] LVOT VTI 26.69cm LVPWd 2D 0.90 cm [ 0.60 - 1.00 ] MV E Peak Charles 1.01m/s [ 0.60 - 1.30 ] LVPWd MM 0.95 cm [ 0.60 - 1.00 ] MV A Peak Charles 0.81m/s [ 1.00 - 1.20 ] IVSd 2D 0.73 cm [ 0.60 - 1.00 ] MV Decel Time 217msec [ 104 - 258 ] IVSd MM 0.73 cm [ 0.60 - 1.00 ] PV Peak Charles 1.24m/s [ 0.40 - 0.80 ] LA Dimension MM 3.41 cm [ 3.00 - 4.00 ] TR Peak Charles 2.91m/s [ 1.00 - 2.80 ] AoR Diam MM 3.30 cm [ 3.10 - 3.70 ] TR Peak PG 34mmHg LA Volume 43.73 ml [ 18.00 - 58.00 ] RVSP 44.00mmHg [ 10.00 - 36.00 ] LA Volume Index 25 cc/m2 [ 16 - 28 ] RV S` 0.14m/s ACS MM 1.38 cm [ 1.50 - 2.60 ] Lateral E` 0.09m/s [ 0.10 - 0.15 ] RA Volume 48.65 ml Septal E` 0.08m/s [ 0.08 - 0.15 ] E` 0.08 m/s E/E` 12 2D/MM Value Range Doppler ValueRange - FINDINGS: Interpretation Site: Exam was interpreted at [facility]. Left Ventricle: Normal left ventricular systolic function. No focal wall motionabnormalities. Normal left ventricular size. Normal left ventricular wall thickness. There ispseudonormal diastolic dysfunction Grade II. Ejection fraction is measured at 71 %.Ejection Fraction is visually estimated to be 65 %. Global Longitudinal Strain is -20 %. GLSis normal. Right Ventricle: Normal right ventricular size. Normal right ventricular systolicfunction. Left Atrium: There is mild enlargement of left atrium. Right Atrium: The right atrium is normal in size. Atrial Septum: Normal atrial septum. Mitral Valve: Normal appearance of the mitral valve. Mild mitral valve regurgitation.There is no hemodynamically significant mitral stenosis by Doppler. Aortic Valve: Mild aortic stenosis. Mean gradient of 6.0 mmHg. Valve area of 1.9 cm2.Aortic cusps appear mildly calcified. Trileaflet aortic valve. Mild aortic valveregurgitation. Tricuspid Valve: Normal appearance of the tricuspid valve. Mild pulmonary hypertensionbased on right ventricular systolic pressure. Estimated peak RVSP is 44 mmHg. Mildtricuspid regurgitation. Pulmonic Valve: Normal appearance of the pulmonic valve. No pulmonic stenosis. Trivialregurgitation in the pulmonic valve. Pericardium: Normal pericardium with no significant pericardial effusion. Aorta: Normal aortic root. IVC: Dilated IVC with respiratory collapse consistent with elevated rightatrial pressure (10-15 mmHg). CONCLUSIONS: Normal left ventricular systolic function. No focal wall motionabnormalities. Normal left ventricular size. Normal left ventricular wall thickness. There ispseudonormal diastolic dysfunction Grade II. Ejection fraction is measured at 71 %.Ejection Fraction is visually estimated to be 65 %. Global Longitudinal Strain is -20 %. GLSis normal. There is mild enlargement of left atrium. Mild mitral valve regurgitation. Mild aortic stenosis. Mean gradient of 6.0 mmHg. Valve area of 1.9 cm2.Aortic cusps appear mildly calcified. Trileaflet aortic valve. Mild aortic valveregurgitation. Mild pulmonary hypertension based on right ventricular systolic pressure.Estimated peak RVSP is 44 mmHg. Mild tricuspid regurgitation. Normal sinus rhythm. Electronically Signed By: Antelmo Simpson MD 02/26/2025 3:01:12 PM CDT Antelmo Simpson MD CV ECHO PROCEDURES Final Result from Last 3 Months Insurance MEDICARE [place] [id number] MEDICARE [employer] Care Teams Validation Intern Relationship Specialty Start Date End Date Osito Ramesh DO [address] [place] [address] PCP - General Family Medicine 03/19/22
[2025-03-26] MEDS: SILVER NITRATE (*SP) STICK 1 EACH TOPICAL (19:15)
--- NOTE | 2025-03-26 19:22 | ED_ITS ---
HPI - Wound/Laceration General Stated Complaint: lt hand wound bleeding Time Seen by Provider: 03/26/25 19:10 Source: patient and family Mode of arrival: ambulatory Limitations: no limitations History of Present Illness HPI narrative: 69-year-old with a history of COPD, hypertension, paroxysmal atrial fibrillation on Eliquis here with the complaints of bleeding from the left palm. Patient states that he had a skin tag removed this morning and started bleeding about 1 hour ago. Unable to control the bleeding. Related Data Home Medications ?Medication ?Instructions ?Recorded ?Confirmed ?Last Taken ?Type light mineral oil 1 %-mineral oil 2 drp ophthalmic (ey e) BID 11/13/21 03/22/25 11/12/21 History 4.5 % eye drops (Soothe XP) Allergies Allergy/AdvReac Type Severity Reaction Status Date / Time No Known Allergies Allergy Verified 03/26/25 19:26 Review of Systems Review of Systems: All systems reviewed & are unremarkable except as noted in HPI and below Constitutional: Constitutional: Reports no additional constitutional complaints Eyes: Eyes: Reports no additional eye complaints ENT: Reports system reviewed and no additional complaints, except as documented Cardiovascular: Cardiovascular: Reports no additional cardiovascular complaints Respiratory: Respiratory: Reports no additional respiratory complaints [facility] Past Medical History Medical History Paroxysmal atrial fibrillation Anxiety Atrial fibrillation Emphysema/COPD Tobacco dependence COPD (chronic obstructive pulmonary disease) Depression Light-headedness Vertigo HTN (hypertension) Surgical History Surgical History No significant past surgical history Family History Family History Mother CAD (coronary artery disease) Chronic obstructive pulmonary disease Father Blood clot in vein Social History Social History Smoking packs per day: 0.5 Smoking cigarettes per day: 10.0 Years smoked: 45 Smoking pack-years: 22.50 Smoking status: Current every day smoker Tobacco type: cigarettes Second hand tobacco smoke exposure: No Smoking end date: 03/30/20 Alcohol intake: never Drinks per week: 18 Substance use: never Substance use type: does not use Last use: Quit drinking alcohol 18 months ago Gender identity (if verbalized by the patient): Male Sexual Orientation (if Verbalized by the Patient): Straight or Heterosexual Spiritual care concerns: No Agree to blood products: Yes Exam Narrative: GENERAL: Well-appearing, well-nourished, and in no acute distress. HEAD: Normocephalic, atraumatic. EYES: PERRLA and EOMI. ENT: Nares clear, no rhinorrhea or epistaxis. Mucous membranes moist. NECK: Supple. CHEST: Clear to auscultation. No respiratory distress. HEART: Regular rate and rhythm. No murmur heard. Normal peripheral pulses. EXTREMITIES: Normal range of motion. No edema. Mild bleeding noted on the left thenar eminence SKIN: Warm, dry, no rash. NEURO: No focal deficits. Alert and oriented x3. PSYCH: Normal mood and affect. Course Course Emergency Course: there was mild bleeding , i did clean with antiseptic solution cauterized with silver nitrate stick. Vital Signs Vital signs: Vital Signs Temperature 36.6 C 03/26/25 19:10 Respiratory Rate 16 03/26/25 19:10 Blood Pressure 166/68 H 03/26/25 19:10 Pulse Oximetry 97 03/26/25 19:10 Oxygen Delivery Room Air 03/26/25 19:10 Temperature 36.6 C 03/26/25 19:10 Respiratory Rate 16 03/26/25 19:10 Blood Pressure 166/68 H 03/26/25 19:10 Pulse Oximetry 97 03/26/25 19:10 Oxygen Delivery Room Air 03/26/25 19:10 Discharge Plan Discharge Clinical Impression: Post-op bleeding Qualifiers: Surgical complication system/body Area: skin Procedure type: dermatologic Qualified Code(s): L76.21 - Postprocedural hemorrhage of skin and subcutaneous tissue following a dermatologic procedure Patient Disposition: Home Condition: Stable Instructions: Acute Wounds (DC) Additional Instructions: Hold eliquis tonight Patient Language: Malawian Prescriptions: No Action Eliquis 5 mg tablet 5 mg PO BID Qty: 90 0RF lorazepam [Ativan] 1 mg tablet 1 mg PO DAILY PRN (Reason: anxiety) Qty: 30 2RF betamethasone dipropionate 0.05 % cream 1 applic topical BID PRN (Reason: rash) Qty: 45 0RF Soothe XP 1-4.5 % Drops 2 drp OPHTHALMIC (EYE) BID amlodipine [Norvasc] 5 mg Tablet 5 mg PO QAM 30 Days Qty: 30 3RF albuterol sulfate 2.5 mg /3 mL (0.083 %) solution for nebulization See Rx Instructions .ROUTE .COMPLEX Qty: 180 3RF Dose Instruction: USE 1 VIAL IN NEBULIZER EVERY 4 TO 6 HOURS NEEDED FOR SHORTNESS OF BREATH FOR WHEEZING Rx Instructions: USE 1 VIAL IN NEBULIZER EVERY 4 TO 6 HOURS NEEDED FOR SHORTNESS OF BREATH FOR WHEEZING benzonatate 200 mg capsule See Rx Instructions .ROUTE .COMPLEX Qty: 90 3RF Dose Instruction: TAKE 1 CAPSULE BY MOUTH TWICE DAILY NEEDED FOR COUGH Rx Instructions: TAKE 1 CAPSULE BY MOUTH TWICE DAILY NEEDED FOR COUGH loratadine [Allergy Relief (loratadine)] 10 mg tablet See Rx Instructions .ROUTE .COMPLEX Qty: 90 0RF Dose Instruction: Take 1 tablet by mouth once daily Rx Instructions: Take 1 tablet by mouth once daily escitalopram oxalate 10 mg tablet See Rx Instructions .ROUTE .COMPLEX Qty: 90 0RF Dose Instruction: Take 1 tablet by mouth once daily Rx Instructions: Take 1 tablet by mouth once daily Brezits learningi [employer] Online[employer]here 160-9-4.8 mcg/actuation HFA aerosol inhaler See Rx Instructions .ROUTE .COMPLEX Qty: 11 0RF Dose Instruction: INHALE 2 PUFFS TWICE DAILY Rx Instructions: INHALE 2 PUFFS TWICE DAILY Follow-up/Referrals: Osito Ramesh DO [Primary Care Provider, [facility]] Time of Disposition: 19:23
--- OUTSIDE RECORDS SUMMARY | 2025-03-26 19:29 | XMS_ITS | Encounter Summary ---
Author Organization [facility] Healthcare Address [address] [place] [address] Care Team Providers Care Cloth Feeder Name Role Phone Osito Ramesh DO Primary Care Provider Encounter Details Date Type Department Care Team (Latest Contact Info) Description 02/26/2025 Results Follow-Up [facility] Medical Group Cardiology at [address] [place] [address] Eugenio Le MD [address] 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
== END 2025-03-26 19:48 | disposition home or self-care (01) ==
PROVIDERS: Emergency Provider Family Medicine; PCP Family Medicine
DX: L76.21 Postprocedural hemorrhage of skin and subcutaneous tissue following a dermatologic procedure (principal); I48.0 Paroxysmal atrial fibrillation; J44.9 Chronic obstructive pulmonary disease, unspecified; I10 Essential (primary) hypertension; F17.210 Nicotine dependence, cigarettes, uncomplicated
CPT/HCPCS: 12001; 99283

== ENCOUNTER 2025-05-03 13:42 | Outpatient (CLI) | payer MEDICARE, OTHER, SELFPAY ==
--- OUTSIDE RECORDS SUMMARY | 2025-05-03 13:48 | XMS_ITS | Clinical Summary ---
Author Organization [facility] [address] Address [address] [place] [address] Care Team Providers Care Director Dental Services Name Role Phone Osito Ramesh DO Primary [...] every 6 (six) hours as needed 0 02/18/20 22 Active Breztri Aerosphere 160-9-4.8 mcg/actuation HFA aerosol inhaler Inhale 2 puffs 2 (two) times a day 08/03/19 23 Active benzonatate (TESSALON) 200 mg capsule Take 1 capsule (200 mg total) by mouth 2 (two) times a day as needed 10/11/19 25 Active escitalopram (LEXAPRO) 20 mg tablet Take 1 tablet (20 mg total) by mouth daily 10/17/19 25 Active sotaloL (BETAPACE) 80 mg tabletIndication s:Paroxysmal atrial fibrillation (HCC) Take 1 tablet by mouth twice daily 180 tablet 2 01/29/20 25 Active amLODIPine (NORVASC) 5 mg tabletIndication s:Essential hypertension Take 1 tablet by mouth once daily 90 tablet 2 02/06/20 25 Active apixaban (Eliquis) 5 mg tabletIndication s:Paroxysmal atrial fibrillation (HCC) Take 1 tablet (5 mg total) by mouth 2 (two) times a day 180 tablet 2 04/19/20 25 Active apixaban (Eliquis) 5 mg tabletIndication s:Paroxysmal atrial fibrillation (HCC) Take 1 tablet by mouth twice daily 180 tablet 2 07/24/19 25 025 Discontin ued(Reord er) Active Problems Problem Noted Date Diagnosed Date Tobacco use 05/11/2024 Palpitations 03/22/2023 Primary hypertension 03/22/2023 Chronic anticoagulation 03/22/2023 Encounter for monitoring sotalol therapy 023 Paroxysmal atrial fibrillation 11/27/2021 Encounters Date Type Department Care Team Description 02/26/2025 2:00 PM CDT Ancillary Procedure [facility] Medical [facility] Cardiology at [address] [address] Paroxysmal atrial fibrillation (HCC); Palpitations; Primary hypertension 02/26/2025 1:15 PM CDT Office Visit [facility] Cardiology at [address] [address] Antelmo Simpson MD Chronic anticoagulation (Primary Dx); Tobacco use; Paroxysmal atrial fibrillation (HCC); Palpitations; Primary hypertension 02/26/2025 Results Follow-Up [facility] Medical [facility] Cardiology at [address] [address] Antelmo Simpson MD Transthoracic Echo (TTE) Complete [...] on file 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[employer] Gender Identity Not on file Sexual Orientation [...] Visit 65+ 2018 Covid-19 Vaccine ( season) 2025 09/30/2021, 12/09/2020, 11/18/2020 Influenza Vaccine (#1) 2025 [...] PM CDT Narrative 02/26/2025 3:01 PM CDT [facility] Medical [facility] Cardiology [address] , [address], [place] [address] P:[phone] P:[phone] Echocardiographic Report Patient Name: KARAN SEXTON : 1955 Study Date: 02/26/2025 1:51:27 PM Gender: M Business Risk Consultant: NEIL Location: [facility] Ref Provider: ANTELMO SIMPSON [...] FINDINGS: Interpretation Site: Exam was interpreted at [facility]. Left Ventricle: Normal left ventricular systolic function. [...] Procedure Note Antelmo Simpson MD - 02/26/2025 [facility] Medical [facility] Cardiology [address], [address], [place] [address] P:[phone] P:[phone] Echocardiographic Report Patient Name: KARAN SEXTON : 1955 Study Date: 02/26/2025 1:51:27 PM Gender: M Business Risk Consultant: NEIL Location: [facility] Ref Provider: ANTELMO SIMPSON Height(Cm): 183 BSA: 1.74 Weight(Kg): 59.4 Heart Rate: 57 BP: 130 / 60 Quality: Good Order Provider: ANTELMO SIMPSON PROCEDURES: Echocardiographic Report: Transthoracic echocardiogram with complete 2D, M-Mode, and color Dopplerexamination. With Strain Analysis. INDICATIONS: I48.0 Paroxysmal atrial fibrillation, R00.2 Palpitations, and R37Orctzaayo (primary) hypertension. MEASUREMENTS: 2D/MM Value Range Doppler [...] FINDINGS: Interpretation Site: Exam was interpreted at [facility]. Left Ventricle: Normal left ventricular systolic function. [...] Result from Last 3 Months Insurance [facility]ICARE [facility] [place] [facility] [place] [facility] [place] [facility] Care Teams Director Dental Services Relationship Specialty Start Date End Date Osito Ramesh DO [address] [place] [address] PCP - General Family Medicine 03/19/22
[2025-05-03 15:25] LABS: Hematocrit 39.3 % (42.0-52.0); Hemoglobin 13.2 g/dL (14.0-18.0); Mean Corpuscular HGB Conc 33.6 g/dl (32-36); Mean Corpuscular Hemoglobin 31.1 pg (26-34); Mean Corpuscular Volume 92.5 fl (80-100); Platelet Count Result 295 k/mm3 (150-375); Red Blood Count 4.25 M/mm3 (4.6-6.20); White Blood Count 12.1 K/mm3 (4.5-10.0)
[2025-05-03 15:42] LABS: Alanine Aminotransferase 13 U/L (6-50); Albumin Level 4.0 g/dL (3.5-5.1); Alkaline Phosphatase 74 U/L (38-126); Anion Gap 6 mmol/L (4-12); Aspartate Amino Transferase 23 U/L (17-59); Bilirubin,Total 0.4 mg/dL (0.2-1.3); Blood Urea Nitrogen 23 mg/dL (9-20); Calcium 9.1 mg/dL (8.4-10.2); Carbon Dioxide 27 mmol/L (22-30); Chloride 106 mmol/L (98-107); Creatine Kinase 31 U/L (55-170); Estimated Glomerular Filt Rate > 60; Glucose 95 mg/dL (65-110); Potassium 4.4 mmol/L (3.4-5.0); Sodium 139 mmol/L (137-145); Total Protein 7.9 g/dL (6.3-8.2)
[2025-05-07 10:09] LABS: ANA by IFA Rfx Titer/Pattern Negative (.)
== END 2025-05-03 13:43 | disposition home or self-care (01) ==
PROVIDERS: PCP Family Medicine; Visit Provider Physician Assistant
DX: L30.9 Dermatitis, unspecified (principal); L94.8 Other specified localized connective tissue disorders
CPT/HCPCS: 36415; 80053; 82550; 85027; 86038; 86225; 86235; 86430